=== PATIENT | female | born 1955 | race Two or more races ===

== ENCOUNTER → 2019-10-13 | Emergency (ER) | payer MEDICAID, OTHER ==
[~2019-10-13] VITALS: Ht 157.5 cm; Wt 43.1 kg
[2019-10-14 01:20] VITALS: BP 144/60
== END | disposition home or self-care (01) ==
LOC: ER 22:47
DX: J21.9 Acute bronchiolitis, unspecified (principal); T17.228A Food in pharynx causing other injury, initial encounter; X58.XXXA Exposure to other specified factors, initial encounter; Y93.89 Activity, other specified; Y92.89 Other specified places as the place of occurrence of the external cause; Y99.8 Other external cause status
CPT/HCPCS: 70490; 71250; 82962

== ENCOUNTER 2020-02-22 11:29 | Emergency (ER) | payer MEDICAID ==
[~2020-02-22] VITALS: Ht 157.5 cm; Wt 43.1 kg
[2020-02-22 12:10] LABS: Basophils # (auto) 0.1 10 ^3/uL (0-0.2); Basophils % (auto) 0.8 % (0.0-2.0); Eosinophils # (auto) 0.1 10 ^3/uL (0-0.8); Eosinophils % (auto) 1.5 % (0.0-7.0); Hematocrit 32.2 % (36.0-46.0); Hemoglobin 10.4 g/dL (12.2-16.2); Lymphocytes % (auto) 16.3 % (10.0-50.0); Mean Corpuscular Hgb Conc. 32.3 g/dL (32.0-36.0); Mean Corpuscular Volume 83.6 fL (80.0-100.0); Monocytes # (auto) 0.5 10 ^3/uL (0-1.3); Monocytes % (auto) 7.9 % (0.0-12.0); Neutrophils # (auto) 4.7 10 ^3/uL (1.6-8.6); Neutrophils % (auto) 73.5 % (37.0-80.0); Platelet Count (auto) 191 10^3/uL (140-450); Red Blood Cells 3.85 10^6/uL (4.0-5.20); Red Cell Distribution Width 24.9 % (11.8-14.3); White Blood Cell 6.4 10^3/uL (4.4-10.8)
[2020-02-22 12:31] LABS: Albumin 3.7 g/dL (3.4-5.0); Calcium 9.3 mg/dL (8.5-10.1)
[2020-02-22 12:32] LABS: INR 0.98 (0.9-1.15); Partial Thromboplastin Time 23.1 sec (23.0-31.2)
[2020-02-22 12:34] LABS: BUN/Creatinine Ratio 27.8; Bilirubin, Total 0.3 mg/dL (0.2-1.0); Total Protein 9.5 g/dL (6.4-8.2)
[2020-02-22] MEDS ORDERED: diphenhdrAMINE HCL 50 MG/1 ML VL ONE (13:22)
[2020-02-22] MEDS ORDERED: SODIUM CHLORIDE LOCK 10 ML ONE (13:22)
[2020-02-22] MEDS: MIDAZOLAM HCL 5 MG/ML-1ML VIAL ONE ×3 (13:47→13:54)
[2020-02-22] MEDS: fentaNYL CITRATE 100 MCG/2 ML VL ONE ×3 (13:48→13:54)
[2020-02-22 15:22] VITALS: BP 116/68
== END 2020-02-22 15:18 | disposition home or self-care (01) ==
LOC: ER 11:29
DX: K22.2 Esophageal obstruction (principal); K22.10 Ulcer of esophagus without bleeding; M19.90 Unspecified osteoarthritis, unspecified site; E11.9 Type 2 diabetes mellitus without complications
CPT/HCPCS: 36415; 43249; 80053; 85025; 85610; 85730; 88305; 88312; 88342; 99284; C1726; J1200; J2250; J3010

== ENCOUNTER 2020-12-11 16:03 | Emergency (ER) | payer MEDICAID ==
[~2020-12-11] VITALS: Ht 157.5 cm; Wt 43.1 kg
[2020-12-11 16:45] LABS: Basophils # (auto) 0 10 ^3/uL (0-0.2); Basophils % (auto) 0.7 % (0.0-2.0); Eosinophils # (auto) 0.1 10 ^3/uL (0-0.8); Eosinophils % (auto) 1.6 % (0.0-7.0); Hematocrit 26.9 % (36.0-46.0); Hemoglobin 9.2 g/dL (12.2-16.2); Lymphocytes # (auto) 0.4 10 ^3/uL (0.4-5.4); Lymphocytes % (auto) 7.5 % (10.0-50.0); Mean Corpuscular Hemoglobin 29.7 pg (28.0-32.0); Mean Corpuscular Hgb Conc. 34.3 g/dL (32.0-36.0); Mean Corpuscular Volume 86.7 fL (80.0-100.0); Monocytes # (auto) 0.3 10 ^3/uL (0-1.3); Monocytes % (auto) 7.1 % (0.0-12.0); Neutrophils % (auto) 83.1 % (37.0-80.0); Red Cell Distribution Width 19.2 % (11.8-14.3); White Blood Cell 4.8 10^3/uL (4.4-10.8)
[2020-12-11 16:58] LABS: Albumin 3.3 g/dL (3.4-5.0); Calcium 9.3 mg/dL (8.5-10.1); Potassium 4.2 mmol/L (3.5-5.1)
[2020-12-11 17:02] LABS: BUN/Creatinine Ratio 21.1; Bilirubin, Total 0.3 mg/dL (0.2-1.0); Total Protein 8.2 g/dL (6.4-8.2)
[2020-12-11 19:20] VITALS: BP 113/59
== END 2020-12-11 20:53 | disposition home or self-care (01) ==
LOC: ER 16:03
DX: K12.1 Other forms of stomatitis (principal); M25.774 Osteophyte, right foot; T45.1X5A Adverse effect of antineoplastic and immunosuppressive drugs, initial encounter; E11.9 Type 2 diabetes mellitus without complications; Z79.899 Other long term (current) drug therapy; Y92.89 Other specified places as the place of occurrence of the external cause
CPT/HCPCS: 36415; 80053; 83605; 85025; 85049; 93005

== ENCOUNTER 2020-12-16 22:28 | Emergency (ER) | payer MEDICAID ==
[~2020-12-16] VITALS: Ht 157.5 cm; Wt 40.8 kg
[2020-12-16 22:28] VITALS: BP 135/75
== END 2020-12-17 05:04 | disposition left against medical advice (07) ==
LOC: ER 22:30
DX: M79.671 Pain in right foot (principal); Z53.21 Procedure and treatment not carried out due to patient leaving prior to being seen by health care provider
CPT/HCPCS: 73700

== ENCOUNTER 2024-04-11 23:19 | Emergency (ER) | payer MEDICARE, MEDICAID ==
[~2024-04-11] VITALS: Ht 152.4 cm; Wt 59.0 kg
[2024-04-12 00:37] LABS: Basophils # (auto) 0 10 ^3/uL (0-0.2); Basophils % (auto) 0.7 % (0.0-2.0); Eosinophils # (auto) 0.1 10 ^3/uL (0-0.8); Eosinophils % (auto) 1.4 % (0.0-7.0); Hematocrit 27.8 % (36.0-46.0); Hemoglobin 9.3 g/dL (12.2-16.2); Lymphocytes # (auto) 0.2 10 ^3/uL (0.4-5.4); Lymphocytes % (auto) 5.6 % (10.0-50.0); Mean Corpuscular Hemoglobin 31.1 pg (28.0-32.0); Mean Corpuscular Hgb Conc. 33.4 g/dL (32.0-36.0); Mean Corpuscular Volume 93.3 fL (80.0-100.0); Monocytes # (auto) 0.3 10 ^3/uL (0-1.3); Monocytes % (auto) 6.8 % (0.0-12.0); Neutrophils # (auto) 3.8 10 ^3/uL (1.6-8.6); Neutrophils % (auto) 85.5 % (37.0-80.0); Platelet Count (auto) 152 10^3/uL (140-450); Red Blood Cells 2.97 10^6/uL (4.0-5.20); Red Cell Distribution Width 18.5 % (11.8-14.3); White Blood Cell 4.4 10^3/uL (4.4-10.8)
[2024-04-12 00:52] LABS: Alanine Aminotransferase 63 U/L (7-40); Albumin 4.1 g/dL (3.2-4.8); Alkaline Phosphatase 100 U/L (46-116); Anion Gap 2 (5-15); Aspartate Aminotransferase 44 U/L (13-40); Bilirubin, Total 0.5 mg/dL (0.2-1.0); Blood Urea Nitrogen 20 mg/dL (9-23); Calcium 10.2 mg/dL (8.7-10.4); Carbon Dioxide 26 mmol/L (20-31); Chloride 106 mmol/L (98-107); Glucose 246 mg/dL (74-106); Potassium 4.6 mmol/L (3.5-5.1); Sodium 134 mmol/L (136-145); Total Protein 7.9 g/dL (5.7-8.2)
[2024-04-12] MEDS ORDERED: CLIN1CAP70 PO (02:39)
[2024-04-12 04:00] VITALS: BP 133/67; PULSE 75; RESP 14; O2SAT 98
== END 2024-04-12 05:07 | disposition home or self-care (01) ==
LOC: EDBD 23:19 → ER 23:19
DX: L03.116 Cellulitis of left lower limb (principal); M19.90 Unspecified osteoarthritis, unspecified site; E11.9 Type 2 diabetes mellitus without complications
CPT/HCPCS: 36415; 73660; 80053; 85025

== ENCOUNTER 2024-04-16 15:33 | Inpatient (IN) | payer MEDICARE, MEDICAID ==
[~2024-04-16] VITALS: Ht 157.5 cm; Wt 41.0 kg
[~2024-04-16 15:33] MED LIST: CLIN1CAP70 PO
[2024-04-16 16:38] LABS: Basophils # (auto) 0 10 ^3/uL (0-0.2); Basophils % (auto) 1.1 % (0.0-2.0); Eosinophils # (auto) 0.1 10 ^3/uL (0-0.8); Eosinophils % (auto) 1.8 % (0.0-7.0); Lymphocytes # (auto) 0.3 10 ^3/uL (0.4-5.4); Lymphocytes % (auto) 11.8 % (10.0-50.0); Mean Corpuscular Hemoglobin 30.1 pg (28.0-32.0); Mean Corpuscular Hgb Conc. 32.4 g/dL (32.0-36.0); Mean Corpuscular Volume 93.1 fL (80.0-100.0); Monocytes # (auto) 0.4 10 ^3/uL (0-1.3); Monocytes % (auto) 13.6 % (0.0-12.0); Neutrophils # (auto) 2.1 10 ^3/uL (1.6-8.6); Neutrophils % (auto) 71.7 % (37.0-80.0); Nucleated Red Blood Cells % 0.2 %; Platelet Count (auto) 250 10^3/uL (140-450); Red Blood Cells 3.33 10^6/uL (4.0-5.20); Red Cell Distribution Width 18.2 % (11.8-14.3); White Blood Cell 2.9 10^3/uL (4.4-10.8)
--- NOTE | 2024-04-16 16:48 | ED.PDOC ---
History of Present Illness HPI Comments 68F presents to the ER w/ prior Hx of arthritis and DM which may be associated to the c/c of LE. Pt son reports that the pt was recently admitted to the ER for 1 day, due from the same symptoms. Son states that the pt was given antibiotics for the extremity and got better but when they arrived home, the pt's extremity was getting worsening and was turning red in color. Son states that the pt was not prescribed w/ any antibiotics. SHx of right hip/knee. Social Hx of DM. Denies chill,s fever, N/V/D, SOB, CP or other associated symptom's, modifiers, or recent injuries or sick contact at this time. Chief Complaint: Lower Extremity Time Seen by MD: 16:21 Primary Care Provider: VERMA Reviewed Notes: Nurses Notes, Medications, Allergies Allergies: Coded Allergies: NO KNOWN ALLERGIES (Unverified , 10/13/19) Home Meds Active Scripts Clindamycin Hcl (Clindamycin Hcl) 300 Mg Cap, 1 CAP PO TID for 10 Days, #30 CAP Prov:JAVAD RICHARDS 04/12/24 Information Source: Patient, Relative (Child) Mode of Arrival: Wheelchair Severity: Moderate Timing: Days Duration: Since onset, Days Prehospital treatment: None Past Medical History PAST MEDICAL HISTORY: Arthritis, DM Surgical History (Other): Right hip/knee AX SURVEY WORKER History: No Pertinent AX SURVEY WORKER History Family History Family History: Family hx of DM Social History Smoker: Non-Smoker Alcohol: Denies ETOH Use Drugs: Denies Drug Use Lives In: Home Constitutional: denies: chills, diaphoresis, fatigue, fever, malaise, sweats, weakness, others EENTM: denies: blurred vision, double vision, ear bleeding, ear discharge, ear drainage, ear pain, ear ringing, eye pain, eye redness, hearing loss, mouth pain, mouth swelling, nasal discharge, nose bleeding, nose congestion, nose pain, photophobia, tearing, throat pain, throat swelling, voice changes, others Respiratory: denies: cough, hemoptysis, orthopnea, SOB at rest, shortness of breath, SOB with excertion, stridor, wheezing, others Cardiovascular: denies: chest pain, dizzy spells, diaphoresis, Dyspnea on exertion, edema, irregular heart beat, left arm pain, lightheadedness, palpitations, PND, syncope, others Gastrointestinal: denies: abdomen distended, abdominal pain, blood streaked bowels, constipated, diarrhea, dysphagia, difficulty swallowing, hematemesis, m fortunato, nausea, poor appetite, poor fluid intake, rectal bleeding, rectal pain, vomiting, others Genitourinary: denies: abnormal vagina bleeding, burning, dyspareunia, dysuria, flank pain, frequency, hematuria, incontinence, pain, , vagina discharge, urgency, others Neurological: denies: dizziness, fainting, headache, left sided numbness, left sided weakness, numbness, paresthesia, pre-existing deficit, right sided numbness, right sided weakness, seizure, speech problems, tingling, tremors, weakness, others Musculoskeletal: denies: back pain, gout, joint pain, joint swelling, muscle pain, muscle stiffness, neck pain, others Integumetry: reports: change in color; denies: bruises, change in hair/nails, dryness, laceration, lesions, lumps, rash, wounds, others Allergic/Immunocompromised: denies: Difficulty Healing, Frequent Infections, Hives, Itching, others Hematologic/Lymphatic: denies: anemia, blood clots, easy bleeding, easy bruising, swollen glands, others Endocrine: denies: excessive hunger, excessive sweating, excessive thirst, excessive urination, flushing, intolerance to cold, intolerance to heat, unexplained weight gain, unexplained weight loss, others Psychiatric: denies: anxiety, bipolar disorder, depression, hopeless, panic disorder, schizophrenia, sleepless, suicidal, others All Other Systems: Reviewed and Negative Physical Exam General Appearance: No Apparent Distress HEENT: Normal ENT Inspection, Pharynx Normal, TMs Normal Neck: Full Range of Motion, Non-Tender, Normal, Normal Inspection Respiratory: Chest Non-Tender, Lungs Clear, No Accessory Muscle Use, No Respiratory Distress, Normal Breath Sounds Cardiovascular: No Edema, No JVD, No Murmur, No Gallop, Normal Peripheral Pulses, Regular Rate/Rhythm Breast Exam: Deferred Gastrointestinal: No Organomegaly, Non Tender, No Pulsatile Mass, Normal Bowel Sounds, Soft Genitalia: Deferred Pelvic: Deferred Rectal: Deferred Extremities: No calf tenderness, Normal capillary refill, Normal inspection, Normal range of motion, Non-tender, No pedal edema Musculoskeletal : Apperance: Normal Neurologic: Alert, pig farmer II-XII nml as Tested, No Motor Deficits, Normal Affect, Normal Mood, No Sensory Deficits Cerebellar Function: Normal Reflexes: Normal Skin: Dry, Warm, Other (Redness to the left foot consistent with cellulitis) Lymphatic: No Adenopathy Was a procedure done? Was a procedure done?: No Differential Dx Considerations may include: Abscess, cellulitis, gout X-Ray, Labs, Meds, VS Vital Signs Date Time Temp Pulse Resp B/P (MAP) Pulse Ox O2 Delivery O2 Flow Rate FiO2 04/16/24 17:44 98.7 101 18 114/61 (78) 97 98.7 04/16/24 16:08 98.9 104 16 133/60 (84) 96 Lab Test 04/16/24 16:32 Range/Units White Blood Count 2.9 L 4.4-10.8 10^3/uL Red Blood Count 3.33 L 4.0-5.20 10^6/uL Hemoglobin 10.0 L 12.2-16.2 g/dL Hematocrit 31.0 #L 36.0-46.0 % Mean Corpuscular Volume 93.1 80.0-100.0 fL Mean Corpuscular Hemoglobin 30.1 28.0-32.0 pg Mean Corpuscular Hemoglobin Concent 32.4 32.0-36.0 g/dL Red Cell Distribution Width 18.2 H 11.8-14.3 % Platelet Count 250 140-450 10^3/uL Mean Platelet Volume 6.7 L 6.9-10.8 fL Neutrophils (%) (Auto) 71.7 37.0-80.0 % Lymphocytes (%) (Auto) 11.8 10.0-50.0 % Monocytes (%) (Auto) 13.6 H 0.0-12.0 % Eosinophils (%) (Auto) 1.8 0.0-7.0 % Basophils (%) (Auto) 1.1 0.0-2.0 % Neutrophils # (Auto) 2.1 1.6-8.6 10 ^3/uL Lymphocytes # (Auto) 0.3 L 0.4-5.4 10 ^3/uL Monocytes # (Auto) 0.4 0-1.3 10 ^3/uL Eosinophils # (Auto) 0.1 0-0.8 10 ^3/uL Basophils # (Auto) 0 0-0.2 10 ^3/uL Nucleated Red Blood Cells 0.2 % Prothrombin Time 10.7 9.3-11.8 sec Prothrombin Time INR 1.01 0.9-1.15 Activated Partial Thromboplast Time 24.5 24.5-34.5 SEC Sodium Level 136 136-145 mmol/L Potassium Level 4.9 3.5-5.1 mmol/L Chloride Level 105 98-107 mmol/L Carbon Dioxide Level 24 20-31 mmol/L Anion Gap 7 5-15 Blood Urea Nitrogen 20 9-23 mg/dL Creatinine 0.86 0.550-1.02 mg/dL Glomerular Filtration Rate Calc 74 >90 mL/min BUN/Creatinine Ratio 23.3 H 10.0-20.0 Serum Glucose 134 H 74-106 mg/dL Calcium Level 9.9 8.7-10.4 mg/dL Current Medications Medications (Trade) Dose Ordered Sig/Rikki Route Start Time Stop Time Status Last Admin Sodium Chloride 500 ml @ 500 mls/hr Q1H ONCE IV 04/16/24 16:30 04/16/24 17:29 DC 04/16/24 18:07 CT scan of the left foot shows: Impression: 1. No acute osseous abnormality. 2. Mild degenerative changes. 3. Diffuse osteopenia. The patient was given normal saline as a 500 cc bolus The CBC is within normal limits except for anemia with a hemoglobin of 10 and hematocrit of 31 The chemistry panel is within normal limits. The patient is being started on clindamycin IV piggyback The patient is being admitted at this time. Images Reviewed?: Images reviewed and evaluated by me Time of 1ST Reevaluation: 16:51 Reevaluation 1ST: Unchanged Patient Education/Counseling: Diagnosis, Treatment, Prognosis Family Education/Counseling: Diagnosis, Treatment, Prognosis Departure 1 Departure Time of Disposition: 19:07 Impression: Primary Impression: Cellulitis of left foot Disposition: 09 ADMITTED INPATIENT Admit to: Med Surg Condition: Fair Critical Care Note Critical Care Time?: No Stability Stability form required: Yes Unstable for transfer: ED Physician Assesment (Clinical assesment) Heart Score Heart Score: Heart Score Response (Comments) Value History N/A 0 EKG N/A 0 Age N/A 0 Risk Factors N/A 0 Troponin N/A 0 Total 0 I personally scribed for DOMINIQUE,ALONZO B MD ([email or web address]) on 04/16/24 at 16:48. Electronically submitted by Nelson Wynne ([email or web address]). ALONZO FOX MD Apr 16, 2024 16:48
[2024-04-16 17:05] LABS: Chloride 105 mmol/L (98-107); Potassium 4.9 mmol/L (3.5-5.1); Sodium 136 mmol/L (136-145)
[2024-04-16 17:06] LABS: Anion Gap 7 (5-15); Carbon Dioxide 24 mmol/L (20-31)
[2024-04-16 17:07] LABS: Calcium 9.9 mg/dL (8.7-10.4); INR 1.01 (0.9-1.15); Partial Thromboplastin Time 24.5 SEC (24.5-34.5); Prothrombin Time 10.7 sec (9.3-11.8)
[2024-04-16 17:12] LABS: BUN/Creatinine Ratio 23.3 (10.0-20.0); Blood Urea Nitrogen 20 mg/dL (9-23); Glucose 134 mg/dL (74-106)
--- NOTE | 2024-04-16 17:27 | DVH ---
EXAM: CT CT L FOOT WO CONTRAST INDICATION: pain EXAM DATE: 04/16/2024 04:35 PM COMPARISON: CT R FOOT WO CONTRAST on DOS: 12/16/20 TECHNIQUE: Multiple axial CT images of the left foot were obtained using bone algorithm. Axial and co liu reformatting was done. Bone and soft tissue windows were reviewed. Radiation Dose Information: CT Dose: CTDI volume is 7.75 mGy. Dose-length product is 186.71 mGy*cm Findings: There is no evidence of an acute fracture, dislocation, blastic, or lytic lesions. Mild degenerative changes of the hind foot, mid foot, and first PIP joint. No radiopaque foreign bodies. Diffuse osteopenia. Small plantar calcaneal enthesophyte. No joint effusion or superficial soft tissue abnormalities. Impression: 1. No acute osseous abnormality. 2. Mild degenerative changes. 3. Diffuse osteopenia.
[2024-04-16] MEDS: SODIUM CHLORIDE 0.9% 500 ML IV ONE (18:07)
[2024-04-16] MEDS: MORPHINE SULFATE 4 MG/ML SYR/VIAL IV ONE (18:19)
[2024-04-16] MEDS: ONDANSETRON HCL 4 MG/2 ML VIAL IV ONE (18:19)
[2024-04-16] MEDS ORDERED: ACETAMINOPHEN 325 MG TAB PO PRN (22:15)
[2024-04-16] MEDS ORDERED: HYDROcodone-ACET 5/325MG TAB PO PRN (22:15)
[2024-04-16] MEDS ORDERED: ONDANSETRON HCL 4 MG/2 ML VIAL IV PRN (22:15)
[2024-04-16] MEDS ORDERED: MORPHINE SULFATE INJ 2 MG/ml SYRG IV PRN (22:15)
[2024-04-16] MEDS ORDERED: NITROGLYCERIN 0.4 MG SL TAB SL PRN (22:15)
--- NOTE | 2024-04-16 22:23 | DVHHPRES ---
History of Present Illness Resident Creating Document: CLAUDIO TUCKER RESIDENT History of Present Illness This is a 68-year-old wheel chair bound female with past medical history of rheumatoid arthritis, type 2 diabetes mellitus, osteoporosis presented to the ED with a complaint of swelling and redness of left foot and left 2nd toes for 1 week prior to this admission. According to the son patient was recently admitted to the ER for 1 day due to the same symptoms and was given antibiotic clindamycin on discharge. On arrival home the swelling was getting worse and was turning red in color that prompted this visit . The patient also mobile mentioned she has history of osteoporosis and on alendronate once in a week and history of right hip and knee replacement. The patient denies fever, chills, abdominal pain, nausea, vomiting, diarrhea, chest pain, dizziness, shortness of breath, diaphoresis , any change in bowel and bladder habit or any recent injuries or sick contact. PCP: Adrienne Anderson Rheumatologic: Rheumatoid arthritis Endocrine: Diabetes Past Medical History Type 2 diabetes mellitus, rheumatoid arthritis, osteoporosis Past Surgical History Right hip and knee surgery Family History: None Smoke: No ALCOHOL: none Drugs: None Lives: with Family Review of Systems Constitutional: No: Fever, Chills, Sweats, Weakness, Malaise, Other Eyes: No: Pain, Vision change, Conjunctivae inflammation, Eyelid inflammation, Other, Redness ENT: No: Ear pain, Ear discharge, Nose pain, Nose discharge, Nose congestion, Mouth pain, Mouth swelling, Throat pain, Throat swelling, Other Respiratory: No: Cough, Dry, Shortness of breath, SOB with excertion, Wheezing, Hemoptysis, Pleuritic Pain, Sputum, Wheezing, Other Cardiovascular: No: Chest Pain, Palpitations, Orthopnea, Paroxysmal Noc. Dyspnea, Edema, Lt Headedness, Other Gastrointestinal: No: Nausea, Vomiting, Abdominal Pain, Diarrhea, Constipation, Melena, Hematochezia, Other Genitourinary: No Dysuria, No Frequency, No Incontinence, No Hematuria, No Retention, No Other Musculoskeletal: leg pain, foot pain; No: other, neck pain, shoulder pain, arm pain, back pain, hand pain Skin: No: Rash, Lesions, Jaundice, Bruising, Other Neurological: No: Weakness, Numbness, Incoordination, Change in speech, Confusion, Seizures, Other Allergies: Coded Allergies: NO KNOWN ALLERGIES (Unverified , 10/13/19) Medications Current Medications Medications Dose Ordered Sig/Rikki Route Start Time Stop Time Status Last Admin Dose Admin Sodium Chloride 10 ml Q8HR IV 04/17/24 06:00 Acetaminophen 325 mg Q4HP PRN PO 04/16/24 22:15 Acetaminophen/ Hydrocodone Bitart 1 tab Q4HP PRN PO 04/16/24 22:15 Ondansetron HCl 4 mg Q4HP PRN IV 04/16/24 22:15 Enoxaparin Sodium 30 mg DAILY SC 04/17/24 10:00 UNV Nitroglycerin 0.4 mg Q5MINP PRN SL 04/16/24 22:15 Morphine Sulfate 2 mg Q30M PRN IV 04/16/24 22:15 Ceftriaxone Sodium 50 ml @ 100 mls/hr DAILY@2100 IV 04/16/24 22:30 Exam Vital Signs Vital Signs Date Time Temp Pulse Resp B/P (MAP) Pulse Ox O2 Delivery O2 Flow Rate FiO2 04/16/24 17:44 98.7 101 18 114/61 (78) 97 98.7 General Appearance: Alert, Oriented X3, Cooperative, mild distress HEENT: Atraumatic, PERRLA, EOMI, Mucous membr. moist/pink Respiratory: Clear to auscultation, Normal air movement Cardiovascular: Regular rate, Normal S1, Normal S2, No murmurs Abdominal: Normal bowel sounds, Soft, No tenderness, No hepatospenomegaly, No masses (Swelling and redness of the left foot and left 2nd toes) Extremities: No clubbing, No cyanosis, No edema, Normal pulses Skin: No rashes, No breakdown, No significant lesion Neuro: Normal speech, Strength at 5/5 X4 ext, Normal tone, Sensation intact, Other (Wheelchair-bound) Psych/Mental Status: Mental status NL, Mood NL Labs/Xrays Labs Test 04/16/24 16:32 Range/Units White Blood Count 2.9 L 4.4-10.8 10^3/uL Red Blood Count 3.33 L 4.0-5.20 10^6/uL Hemoglobin 10.0 L 12.2-16.2 g/dL Hematocrit 31.0 #L 36.0-46.0 % Mean Corpuscular Volume 93.1 80.0-100.0 fL Mean Corpuscular Hemoglobin 30.1 28.0-32.0 pg Mean Corpuscular Hemoglobin Concent 32.4 32.0-36.0 g/dL Red Cell Distribution Width 18.2 H 11.8-14.3 % Platelet Count 250 140-450 10^3/uL Mean Platelet Volume 6.7 L 6.9-10.8 fL Neutrophils (%) (Auto) 71.7 37.0-80.0 % Lymphocytes (%) (Auto) 11.8 10.0-50.0 % Monocytes (%) (Auto) 13.6 H 0.0-12.0 % Eosinophils (%) (Auto) 1.8 0.0-7.0 % Basophils (%) (Auto) 1.1 0.0-2.0 % Neutrophils # (Auto) 2.1 1.6-8.6 10 ^3/uL Lymphocytes # (Auto) 0.3 L 0.4-5.4 10 ^3/uL Monocytes # (Auto) 0.4 0-1.3 10 ^3/uL Eosinophils # (Auto) 0.1 0-0.8 10 ^3/uL Basophils # (Auto) 0 0-0.2 10 ^3/uL Nucleated Red Blood Cells 0.2 % Prothrombin Time 10.7 9.3-11.8 sec Prothrombin Time INR 1.01 0.9-1.15 Activated Partial Thromboplast Time 24.5 24.5-34.5 SEC Sodium Level 136 136-145 mmol/L Potassium Level 4.9 3.5-5.1 mmol/L Chloride Level 105 98-107 mmol/L Carbon Dioxide Level 24 20-31 mmol/L Anion Gap 7 5-15 Blood Urea Nitrogen 20 9-23 mg/dL Creatinine 0.86 0.550-1.02 mg/dL Glomerular Filtration Rate Calc 74 >90 mL/min BUN/Creatinine Ratio 23.3 H 10.0-20.0 Serum Glucose 134 H 74-106 mg/dL Calcium Level 9.9 8.7-10.4 mg/dL Assessment/Plan Assessment/Plan Assessment and plan: # Possible cellulitis of the Lt foot - CT of the left foot revealed no acute osseous or soft tissue abnormality, mild degenerative changes and diffuse osteopenia - IV ceftriaxone 1 g daily. - Wound care daily. # Chronic microcytic hypochromic anaemia, rule out GI bleeding - CBC revealed low hemoglobin and hematocrit - Elevated BUN/creatinine ratio - Ordered stool occult blood test - IV Protonix 40 mg daily. # Type 2 diabetes mellitus, HbA1c 7.3% - Mild sliding scale of insulin # History of osteoporosis - Continue home meds # DVT prophylaxis - Ordered Doppler scan of the lower limb - Due to the possibility of the GI bleeding Goal of care discussed with the patient for more than 23 minutes full code Plan of treatment discussed with Dr. De Paz Plan discussed with: Patient, Other My Orders Orders - CLAUDIO TUCKER RESIDENT Procedure Category Date Status Time Admit ADMIT 04/16/24 Transmitted 22:06 Allergies PATRICK 04/16/24 In Process 22:06 Code Status CODE 04/16/24 Transmitted 22:06 Sodium Chloride Lock PHA 04/17/24 In Process (Saline Lock Ns) 06:00 Oxygen Per Hour RT 04/16/24 Transmitted 22:06 Acetaminophen Tablet PHA 04/16/24 In Process (Tylenol Tablet) 22:15 Hydrocodone-Acet PHA 04/16/24 In Process 5/325mg Tab ([place] 22:15 Ondansetron Hcl PHA 04/16/24 In Process (Zofran) 22:15 Fall Risk Precautions PATRICK 04/16/[address] 22:06 Complete Blood Count LAB 04/17/24 Verified 04:00 Comprehensive LAB 04/17/24 Verified Metabolic Panel 04:00 Enoxaparin Sodium PHA 04/17/24 Pending (Lovenox) 10:00 Nitroglycerin PHA 04/16/24 In Process Sublingual (Ntrostat 22:15 Morphine Sulfate PHA 04/16/24 In Process Injection 22:15 Oxygen By Nasal RT 04/16/24 Transmitted Cannula 22:06 Stat Ekg For Chest PATRICK 04/16/24 In Process Pain 22:06 Notify Of Changes PATRICK 04/16/24 In Process From Base 22:06 Systems Librarian For PATRICK 04/16/24 In Process 24 Hours 22:06 Emergency Dysrhythmia PATRICK 04/16/24 In Process Protocol 22:06 Rhythm Strips Once PATRICK 04/16/24 In Process Every Shift 22:06 Hemoglobin A1c LAB 04/16/24 In Process 22:10 Urinalysis LAB 04/16/24 Logged 22:10 Thyroid Stimulating LAB 04/16/24 In Process Hormone 22:10 Vitamin B12 LAB 04/16/24 In Process 22:10 Vitamin D, 25-Hydroxy LAB 04/16/24 In Process 22:10 Consistent DIET 04/17/24 Transmitted Carb(Ccho)Diabetes Breakfast Ceftriaxone 1gm/50ml PHA 04/16/24 In Process D5w (Rocephin) 22:30 Date of Service: Apr 16, 2024 Billing Provider: BRITTA DE PAZ MD Common Visit Codes: 37220-BDYJQVR INP/OBS CARE (HIGH) Secondary Visit Codes: 65283-[id number] CARE PLAN 30 MINUTES CLAUDIO TUCKER RESIDENT Apr 16, 2024 22:23 BRITTA DE PAZ MD Apr 17, 2024 08:29
[2024-04-16 23:56] VITALS: BP 118/58; PULSE 79; RESP 16; TEMP 97.6; O2SAT 98
[2024-04-17] VITALS (7 sets, daily range): BP systolic 109–128; BP diastolic 58–66; PULSE 69–87; RESP 15–18; TEMP 97.6–98.1; O2SAT 96–98
[2024-04-17] MEDS ORDERED: DEXTROSE (50%) 50ML SYRG IV PRN (02:30)
[2024-04-17] MEDS: PANTOPRAZOLE 40 MG/10 ML VIAL INJ IV ONE (04:55)
[2024-04-17] MEDS: cefTRIAXone 1GM/50ML D5W 50 ML IV SCH (05:31)
[2024-04-17] MEDS: ACCU-CHEK COMFORT CURVE STRIP VI SCH (06:24)
[2024-04-17] MEDS: SODIUM CHLOR 0.9% PF (SALINE LOCK) 10ML VIAL/SYR IV SCH (06:24)
[2024-04-17] MEDS: InsuLIN REG 1unit/0.01ml Soln (100units/ml) SC SCH (06:39)
[2024-04-17 07:20] LABS: Basophils # (auto) 0 10 ^3/uL (0-0.2); Basophils % (auto) 1.5 % (0.0-2.0); Eosinophils # (auto) 0.1 10 ^3/uL (0-0.8); Eosinophils % (auto) 3.4 % (0.0-7.0); Hematocrit 26.1 % (36.0-46.0); Hemoglobin 8.8 g/dL (12.2-16.2); Lymphocytes # (auto) 0.3 10 ^3/uL (0.4-5.4); Lymphocytes % (auto) 8.6 % (10.0-50.0); Mean Corpuscular Hemoglobin 31.7 pg (28.0-32.0); Mean Corpuscular Hgb Conc. 33.7 g/dL (32.0-36.0); Mean Corpuscular Volume 94.1 fL (80.0-100.0); Monocytes # (auto) 0.5 10 ^3/uL (0-1.3); Monocytes % (auto) 15.4 % (0.0-12.0); Neutrophils # (auto) 2.2 10 ^3/uL (1.6-8.6); Neutrophils % (auto) 71.1 % (37.0-80.0); Platelet Count (auto) 191 10^3/uL (140-450); Red Blood Cells 2.77 10^6/uL (4.0-5.20); White Blood Cell 3.1 10^3/uL (4.4-10.8)
[2024-04-17 07:30] LABS: Alanine Aminotransferase 64 U/L (7-40); Albumin 3.8 g/dL (3.2-4.8); Alkaline Phosphatase 76 U/L (46-116); Anion Gap 9 (5-15); Aspartate Aminotransferase 59 U/L (13-40); BUN/Creatinine Ratio 23.5 (10.0-20.0); Blood Urea Nitrogen 19 mg/dL (9-23); Calcium 9.2 mg/dL (8.7-10.4); Carbon Dioxide 20 mmol/L (20-31); Chloride 109 mmol/L (98-107); Glucose 203 mg/dL (74-106); Potassium 3.8 mmol/L (3.5-5.1); Sodium 138 mmol/L (136-145)
[2024-04-17 07:31] LABS: Bilirubin, Total 0.3 mg/dL (0.2-1.0); Total Protein 7.5 g/dL (5.7-8.2)
[2024-04-17] MEDS: PANTOPRAZOLE 40 MG/10 ML VIAL INJ IV SCH (09:26)
[2024-04-17] MEDS ORDERED: LACTATED RINGER'S 1,000 ML IV SCH (09:45)
--- NOTE | 2024-04-17 09:50 | DVH ---
Bilateral lower extremity venous duplex Clinical History: edema Comparison: None Technique: Duplex Doppler evaluation of the deep venous systems of both lower extremities from the common femora l veins to the popliteal veins including color Doppler and spectral/pulsed waveform analysis was perf ormed. Findings: RIGHT SIDE: The common femoral vein demonstrates appropriate compressibility and waveform variability. There is compressibility/patency of the great saphenous vein at the proximal thigh. The femoral vein demonstrates appropriate compressibility and waveform variability. The deep femoral vein demonstrates appropriate compressibility and waveform variability. The popliteal vein demonstrates appropriate compressibility and waveform variability. There is normal compressibility at the tibioperoneal trunk. LEFT SIDE: The common femoral vein demonstrates appropriate compressibility and waveform variability. There is compressibility/patency of the great saphenous vein at the proximal thigh. The femoral vein demonstrates appropriate compressibility and waveform variability. The deep femoral vein demonstrates appropriate compressibility and waveform variability. The popliteal vein demonstrates appropriate compressibility and waveform variability. There is normal compressibility at the tibioperoneal trunk. Impression: No right or left femoropopliteal venous thrombosis.
[2024-04-17] MEDS ORDERED: ENOXAPARIN SOD 30 MG/0.3 ML SYRINGE SC SCH (10:00)
[2024-04-17] MEDS ORDERED: VANCOMYCIN PER PHARMACY 0 MG IV SCH (10:00)
[2024-04-17 10:42] LABS: % Iron Saturation 15.2 % (15-50)
[2024-04-17 11:11] LABS: Erythrocyte Sedimentation Rate 98 mm/hr (0-20)
[2024-04-17] MEDS: VANCOMYCIN 750mg/150ml 150 ML IV ONE (12:19)
[2024-04-17] MEDS: INSULIN LANTUS (GLARGINE) 1 /0.01ml (100units/ml) SC SCH (12:29)
--- NOTE | 2024-04-17 12:46 | DVHINCON2 ---
Date Seen: Apr 17, 2024 Reason for Consultation Left foot wound History of Present Illness This is a 68-year-old wheel chair bound female with past medical history of rheumatoid arthritis, type 2 diabetes mellitus, osteoporosis presented to the ED with a complaint of swelling and redness of left foot and left 2nd toes for 1 week prior to this admission. According to the son patient was recently admitted to the ER for 1 day due to the same symptoms and was given antibiotic clindamycin on discharge. On arrival home the swelling was getting worse and was turning red in color that prompted this visit . The patient also mobile mentioned she has history of osteoporosis and on alendronate once in a week and history of right hip and knee replacement. The patient denies fever, chills, abdominal pain, nausea, vomiting, diarrhea, chest pain, dizziness, shortness of breath, diaphoresis , any change in bowel and bladder habit or any recent injuries or sick contact. Past Medical History See H&P Past Surgical History See H&P Family History: Diabetes mellitus G8 FATHER, Onset:30's - 40 Allergies: Coded Allergies: NO KNOWN ALLERGIES (Unverified , 10/13/19) Home Meds Active Scripts Clindamycin Hcl (Clindamycin Hcl) 300 Mg Cap, 1 CAP PO TID for 10 Days, #30 CAP Prov:JAVAD RICHARDS 04/12/24 Current Medications Current Medications Medications (Trade) Dose Ordered Sig/Rikki Route PRN Reason Start Time Stop Time Status Last Admin Sodium Chloride (Saline Lock Ns) 10 ml Q8HR IV 04/17/24 06:00 04/17/24 06:24 Acetaminophen (Tylenol Tablet) 325 mg Q4HP PRN PO MILD PAIN (1-3 PAIN SCALE) 04/16/24 22:15 Acetaminophen/ Hydrocodone Bitart ([place] 5/325MG Tab) 1 tab Q4HP PRN PO MODERATE PAIN (4-6 PAIN SCALE) 04/16/24 22:15 Ondansetron HCl (Zofran) 4 mg Q4HP PRN IV NAUSEA / VOMITING 04/16/24 22:15 Enoxaparin Sodium (Lovenox) 30 mg DAILY SC 04/17/24 10:00 04/17/24 02:20 DC Nitroglycerin (Ntrostat Sublingual) 0.4 mg Q5MINP PRN SL FOR CHEST PAIN 04/16/24 22:15 Morphine Sulfate 2 mg Q30M PRN IV FOR CHEST PAIN 04/16/24 22:15 Ceftriaxone Sodium 50 ml @ 100 mls/hr DAILY@2100 IV 04/16/24 22:30 04/17/24 09:49 DC 04/17/24 05:31 Pantoprazole Sodium (Protonix) 40 mg DAILY IV 04/17/24 10:00 04/17/24 09:26 Diagnostic Test (Pha) (Accu-Chek Comfort Curve T) 1 strip ACHS 04/17/24 07:00 04/17/24 11:30 Insulin Human Regular (InsuLIN R) ACHS SC 04/17/24 07:00 04/17/24 06:39 Dextrose 50 ml UD PRN IV Blood Sugar LESS THAN 60 04/17/24 02:30 Insulin Glargine (Lantus) 10 units DAILY@1000 SC 04/17/24 10:00 04/17/24 12:29 Lactated Ringer's 1,000 ml @ 125 mls/hr Q8H IV 04/17/24 09:45 Vancomycin HCl 0 ml @ 0 mls/hr UD IV 04/17/24 10:00 Cefepime HCl 50 ml @ 12.5 mls/hr Q8HR IV 04/17/24 14:00 Vital Signs Vital Signs Date Time Temp Pulse Resp B/P (MAP) Pulse Ox O2 Delivery O2 Flow Rate FiO2 04/17/24 09:00 97.8 78 16 115/66 (82) 98 97.8 04/17/24 08:00 Room Air* 0 21 Physical Exam DERMATOLOGIC EXAM: - Skin is dry and cool to the touch dry bilaterally. - Nails 1-5 of the bilateral foot are thickened, discolored, dystrophic, and tender to palpate with subungual debris - Hair loss noted to bilateral feet Wound #1: Location: Dorsal left 2nd toe Measurements: Length 1 cm x width 1 cm x depth 0.5 cm. Wound margins: Hyperkeratotic. Wound base: Full thickness. General Appearance: Eschar. Probes to Bone: No Purulent drainage: No Serous drainage: No Erythema: To the digit VASCULAR EXAM: - DP and PT pulses are palpable bilaterally. - HUMAN RESOURCE STATISTICIAN is brisk to all digits. - Feet are cool to touch compared to lower legs bilaterally. NEUROLOGIC EXAM: - Normal light touch sensation to the superficial peroneal, deep peroneal, sural, saphenous, and tibial nerve branches. - Protective sensation is diminished as tested with a 5.07 10g [place] bilaterally. MUSCULOSKELETAL EXAM: - No gross deformities - Muscle strength is 5/5 and active motion is pain-free and symmetrical bilaterally - No pain or crepitation with passive range of motion bilaterally to all major pedal joints Labs/Diagnostic Data Labs Test 04/17/24 11:57 04/17/24 06:09 04/16/24 16:32 Range/Units POC Glucose 130 H 70-106 mg/dl White Blood Count 3.1 L 4.4-10.8 10^3/uL Red Blood Count 2.77 L 4.0-5.20 10^6/uL Hemoglobin 8.8 L 12.2-16.2 g/dL Hematocrit 26.1 #L 36.0-46.0 % Mean Corpuscular Volume 94.1 80.0-100.0 fL Mean Corpuscular Hemoglobin 31.7 28.0-32.0 pg Mean Corpuscular Hemoglobin Concent 33.7 32.0-36.0 g/dL Red Cell Distribution Width 18.0 H 11.8-14.3 % Platelet Count 191 140-450 10^3/uL Mean Platelet Volume 6.9 6.9-10.8 fL Neutrophils (%) (Auto) 71.1 37.0-80.0 % Lymphocytes (%) (Auto) 8.6 L 10.0-50.0 % Monocytes (%) (Auto) 15.4 H 0.0-12.0 % Eosinophils (%) (Auto) 3.4 0.0-7.0 % Basophils (%) (Auto) 1.5 0.0-2.0 % Neutrophils # (Auto) 2.2 1.6-8.6 10 ^3/uL Lymphocytes # (Auto) 0.3 L 0.4-5.4 10 ^3/uL Monocytes # (Auto) 0.5 0-1.3 10 ^3/uL Eosinophils # (Auto) 0.1 0-0.8 10 ^3/uL Basophils # (Auto) 0 0-0.2 10 ^3/uL Nucleated Red Blood Cells 0.0 % Erythrocyte Sedimentation Rate 98 H 0-20 mm/hr Sodium Level 138 136-145 mmol/L Potassium Level 3.8 3.5-5.1 mmol/L Chloride Level 109 H 98-107 mmol/L Carbon Dioxide Level 20 20-31 mmol/L Anion Gap 9 5-15 Blood Urea Nitrogen 19 9-23 mg/dL Creatinine 0.81 0.550-1.02 mg/dL Glomerular Filtration Rate Calc 80 >90 mL/min BUN/Creatinine Ratio 23.5 H 10.0-20.0 Serum Glucose 203 H 74-106 mg/dL Calcium Level 9.2 8.7-10.4 mg/dL Iron Level 37 L 50-170 ug/dL Total Iron Binding Capacity 243 L 250-425 ug/dL Percent Iron Saturation 15.2 15-50 % Total Bilirubin 0.3 0.2-1.0 mg/dL Aspartate Amino Transferase (AST) 59 H 13-40 U/L Alanine Aminotransferase (ALT) 64 H 7-40 U/L Alkaline Phosphatase 76 46-116 U/L C-Reactive Protein High Sensitivity 2.06 H <1.0 mg/dL Total Protein 7.5 5.7-8.2 g/dL Albumin 3.8 3.2-4.8 g/dL Prothrombin Time 10.7 9.3-11.8 sec Prothrombin Time INR 1.01 0.9-1.15 Activated Partial Thromboplast Time 24.5 24.5-34.5 SEC Hemoglobin A1c 7.3 H <5.7 % A1C Vitamin B12 Level 1609 H 211-911 pg/mL Vitamin D 25-Hydroxy 34.6 30.0-100 ng/mL Thyroid Stimulating Hormone (TSH) 2.10 0.55-4.78 uIU/mL Problems(with codes): (1) Bronchiolitis (2) Stomatitis (3) Methotrexate adverse reaction (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 - reviewed CT of the left foot - discussed with the patient that his likely cellulitis which needs to be treated with antibiotics - discussed that chances of bone infection are low with an only being a week old - recommend that we continue antibiotics as an outpatient - no surgical intervention required at this time - if erythema does spread would consider MRI but would hold off at this point - wound care we will see and evaluate All questions were answered and concerns addressed to the patient's satisfaction. The patient was given the phone number to the clinic and was told how to make contact with the clinic should any concerns or questions arise. Patient understands that if any questions or concerns arise prior to the next appointment, we should be contacted immediately. FOLLOW-UP: Patient will follow up with me in 1 week for continued wound care Plan discussed with: Patient Date of Service: Apr 17, 2024 Billing Provider: BRIAN KIM DPM Common Visit Codes: [id number] INP/OBS CARE (MOD) BRIAN KIM DPM Apr 17, 2024 12:46
[2024-04-17] MEDS: CEFEPIME 1GM/ 50ML 50 ML IV SCH (14:14)
--- NOTE | 2024-04-17 15:42 | DVHPNRES ---
Progress Note Date Seen: Apr 17, 2024 Resident Creating Document: FALLON OWEN RESIDENT Medical Necessity Reason Pt with a Central, PICC or Fol: No Subjective Review of Systems Overall patient is doing well, not in acute distress. Open left leg cellulites noted. Patient reports: No new complaints Changes from previous H/P or p: No Changes Review of Systems: HEENT:Normal, CVS:Normal, RESPIRATORY:Normal, GI:Normal, :Normal, MSK:Abnormal (Left foot redness, swelling, warmth and tenderness noted), NEURO:Normal (No neurological change, focal neurological deficit noted.) Objective vital signs Vital Sign Date Time Temp Pulse Resp B/P (MAP) Pulse Ox O2 Delivery O2 Flow Rate FiO2 04/17/24 09:00 97.8 78 16 115/66 (82) 98 97.8 04/17/24 08:00 Room Air* 0 21 Total Intake and Output 04/16/24 04/16/24 04/17/24 15:00 23:00 07:00 Intake Total 150 ml Balance 150 ml medications Current Medications Medications Dose Ordered Sig/Rikki Route Start Time Stop Time Status Last Admin Dose Admin Sodium Chloride 10 ml Q8HR IV 04/17/24 06:00 04/17/24 14:14 10 ML Acetaminophen 325 mg Q4HP PRN PO 04/16/24 22:15 Acetaminophen/ Hydrocodone Bitart 1 tab Q4HP PRN PO 04/16/24 22:15 Ondansetron HCl 4 mg Q4HP PRN IV 04/16/24 22:15 Nitroglycerin 0.4 mg Q5MINP PRN SL 04/16/24 22:15 Morphine Sulfate 2 mg Q30M PRN IV 04/16/24 22:15 Pantoprazole Sodium 40 mg DAILY IV 04/17/24 10:00 04/17/24 09:26 40 MG Diagnostic Test (Pha) 1 strip ACHS 04/17/24 07:00 04/17/24 11:30 1 STRIP Insulin Human Regular ACHS SC 04/17/24 07:00 04/17/24 06:39 4 UNITS Dextrose 50 ml UD PRN IV 04/17/24 02:30 Insulin Glargine 10 units DAILY@1000 SC 04/17/24 10:00 04/17/24 12:29 10 UNITS Lactated Ringer's 1,000 ml @ 125 mls/hr Q8H IV 04/17/24 09:45 Vancomycin HCl 0 ml @ 0 mls/hr UD IV 04/17/24 10:00 Cefepime HCl 50 ml @ 12.5 mls/hr Q8HR IV 04/17/24 14:00 04/17/24 14:14 12.5 MLS/HR Examination: GENERAL:Normal, HEENT:Normal, NECK:Normal, LUNGS:Normal, CVS:Normal, ABDOMEN:Normal, MSK:Abnormal (Bilateral lower limb lateral deviation due to underlying rheumatoid arthritis noted. Noted deformity at baseline. Localized left foot cellulitis noted. No crepitation fluctuation or discharge noted. ), SKIN:Normal, NEURO:Normal, :Normal laboratory and microbiology Laboratory Tests 04/17/24 06:09 Test 04/17/24 06:09 Range/Units Serum Glucose 203 H 74-106 mg/dL Labs and/or images reviewed: Labs reviewed by me, Image(s) reviewed by me Problem List/Assessment/Plan Problem List/Assessment/Plan Hospital Course: 68-year-old wheelchair-bound female with past medical history significant for rheumatoid arthritis, previous right hip and knee surgery, Bilateral lower toe lateral deviation due to chronic deformity, type 2 diabetes mellitus, osteoporosis, chronically on methotrexate, complaint of swelling and redness of the left foot and 2nd toe for past 1 week prior to admission. Patient denies fever, chills, or any other systemic disease. # cellulitis of the left foot: localized redness, tenderness, negative probe test, status post IV ceftriaxone 1 g daily, CT unremarkable except degenerative changes and osteopenia. for broad coverage IV vancomycin and cefepime to cover common g positives along with possibility of mixed infection. elevated ESR CRP. Check arterial Doppler for Intact blood supply. Podiatry input appreciated. # Chronic microcytic hypochromic anemia: Reviewed iron panel likely anemia of chronic disease # GI bleed to rule out: low possibility, with stool occult blood, IV Protonix daily to continue. # Type 2 diabetes mellitus HbA1c 7.3 controlled: continue sliding scale insulin with CC diet,Target blood glucose in-hospital 140/180. # History of osteoporosis: at alendronate Continue home medications # DVT prophylaxis: bilateral lower leg Doppler negative for DVT # Previous right hip and knee orthopedic surgery # known osteoarthritis # PUD prophylaxis: Continue PPI, IV change to oral. Diet: CC diet PCP: Adrienne Anderson MD Barriers to discharge: Further workup pending. If patient remains hemodynamically stable we will consider discharging home with oral antibiotics, wound care and outpatient follow up with Podiatry. Case discussed with Dr. Monroy. Code status: Full code. Complex patient care discussion needed total 37 minutes. Plan discussed with: Patient, Other (RN, primary team. ) My Orders My Orders Orders - FALLON OWEN Procedure Category Date Status Time Drug Screen LAB 04/17/24 Logged 09:37 Insulin Lantus PHA 04/17/24 In Process (Glargine) (Lantus) 10:00 Lactated Ringer's PHA 04/17/24 In Process 09:45 Blood Culture ASIA 04/17/24 In Process 09:41 Vancomycin Per PHA 04/17/24 In Process Pharmacy 10:00 Cefepime 1gm/ 50ml PHA 04/17/24 In Process (Maxipime 1gm/50ml) 14:00 Podiatry Consult CONS 04/17/24 Transmitted 10:07 Vancomycin,Random LAB 04/18/24 Verified 04:00 Complete Blood Count LAB 04/18/24 Verified 04:00 Creatinine LAB 04/18/24 Verified 04:00 Wound Culture W/ Gs ASIA 04/17/24 Logged 15:23 Lt Low Ext Art Duplex US 04/17/24 Logged Date of Service: Apr 17, 2024 Billing Provider: BRITTA MONROY MD Common Visit Codes: [id number] INP/OBS CARE(HIGH) Secondary Visit Codes: [id number] CARE PLAN 30 MINUTES FALLON OWEN Apr 17, 2024 15:42 BRITTA MONROY MD Apr 17, 2024 16:53
[2024-04-17 16:16] LABS: Urine Bacteria FEW /hpf (None Seen); Urine Blood TRACE /uL (Negative); Urine Clarity Clear (Clear); Urine Color Light-Yellow (Yellow); Urine Protein, UAD TRACE (Negative); Urine Specific Gravity 1.012 (1.001-1.035); Urine Urobilinogen Normal (Negative); Urine WBC 65 /hpf (0 - 5); Urine pH 5.5 (5.0-9.0)
[2024-04-17 16:36] LABS: Amphetamine Screen, Urine Neg (NEGATIVE); Barbiturate Scree,Urine Neg (NEGATIVE); Benzodiazephine Screen, Urine Neg (NEGATIVE); Cocaine Screen, Urine Neg (NEGATIVE)
[2024-04-17 16:37] LABS: Cannabinoid Screen, Urine Neg (NEGATIVE); Opiate Scree,Urine Neg (NEGATIVE); Phencyclidine Screen, Urine Neg (NEGATIVE)
--- NOTE | 2024-04-17 16:44 | DVH ---
Left Lower Extremity Arterial Duplex Clinical History: CHECK THE [facility] BLOOD SUPPLY Comparison: None Technique: Duplex Doppler evaluation including color Doppler and spectral/pulsed waveform analysis of the lower extremity arteries was performed. Findings: LEFT Peak systolic velocities are as follows: HUSBANDRY TECHNICIAN 177 cm/s Deep femoral 85 cm/s SFA proximal 85 cm/s SFA mid-portion 105 cm/s SFA distal 67 cm/s Popliteal 49 cm/s Posterior tibial 31 cm/s Anterior tibial 49 cm/s Dorsalis pedis 7.4 cm/s The waveforms are triphasic and biphasic waveform throughout the proximal left lower extremity. Monop hasic waveform in the left posterior tibial and dorsalis pedis arteries.. IMPRESSION: 1. No hemodynamically significant stenosis based on peak systolic velocity criteria. 2. Calcified plaque throughout the left lower extremity. 3. Monophasic waveform in the left posterior tibial anterior tibial and dorsalis pedis arteries. REFERENCE VALUES, [facility]) vascular Imaging Lab Criteria: Peak systolic velocity ranges (in cm/sec) are as follows: <150 cm/s - <20 % stenosis 150-200 cm/s - 20-49% stenosis 200-300 cm/s - 50-75% stenosis >300 cm/s -> 75% stenosis
[2024-04-18 01:00] VITALS: BP 105/59; PULSE 73; RESP 18; TEMP 98.3; O2SAT 96
[2024-04-18 05:00] VITALS: BP 104/57; PULSE 76; RESP 18; TEMP 98.1; O2SAT 96
[2024-04-18 05:11] LABS: Basophils # (auto) 0 10 ^3/uL (0-0.2); Basophils % (auto) 1.1 % (0.0-2.0); Eosinophils # (auto) 0.1 10 ^3/uL (0-0.8); Hematocrit 26.6 % (36.0-46.0); Lymphocytes # (auto) 0.4 10 ^3/uL (0.4-5.4); Lymphocytes % (auto) 9.8 % (10.0-50.0); Mean Corpuscular Hemoglobin 31.4 pg (28.0-32.0); Mean Corpuscular Hgb Conc. 33.7 g/dL (32.0-36.0); Mean Corpuscular Volume 93.3 fL (80.0-100.0); Monocytes # (auto) 0.6 10 ^3/uL (0-1.3); Monocytes % (auto) 15.4 % (0.0-12.0); Neutrophils % (auto) 70.7 % (37.0-80.0); Nucleated Red Blood Cells % 0.1 %; Platelet Count (auto) 189 10^3/uL (140-450); Red Blood Cells 2.85 10^6/uL (4.0-5.20); Red Cell Distribution Width 17.9 % (11.8-14.3); White Blood Cell 4.2 10^3/uL (4.4-10.8)
[2024-04-18] MEDS: PANTOPRAZOLE 40 MG TAB PO SCH (05:38)
--- NOTE | 2024-04-18 07:10 | DVHDSRES ---
Discharge Summary Date of Admission Resident Creating Document: FALLON OWEN RESIDENT Apr 16, 2024 at 22:06 Date of Discharge: Apr 18, 2024 Admitting Diagnosis cellulites of the left foot Labs/Diagnostic Data: Laboratory Results Test 04/18/24 04:43 04/17/24 22:09 04/17/24 16:05 04/17/24 06:09 White Blood Count 4.2 10^3/uL (4.4-10.8) Red Blood Count 2.85 10^6/uL (4.0-5.20) Hemoglobin 9.0 g/dL (12.2-16.2) Hematocrit 26.6 % (36.0-46.0) Mean Corpuscular Volume 93.3 fL (80.0-100.0) Mean Corpuscular Hemoglobin 31.4 pg (28.0-32.0) Mean Corpuscular Hemoglobin Concent 33.7 g/dL (32.0-36.0) Red Cell Distribution Width 17.9 % (11.8-14.3) Platelet Count 189 10^3/uL (140-450) Mean Platelet Volume 7.0 fL (6.9-10.8) Neutrophils (%) (Auto) 70.7 % (37.0-80.0) Lymphocytes (%) (Auto) 9.8 % (10.0-50.0) Monocytes (%) (Auto) 15.4 % (0.0-12.0) Eosinophils (%) (Auto) 3.0 % (0.0-7.0) Basophils (%) (Auto) 1.1 % (0.0-2.0) Neutrophils # (Auto) 3.0 10 ^3/uL (1.6-8.6) Lymphocytes # (Auto) 0.4 10 ^3/uL (0.4-5.4) Monocytes # (Auto) 0.6 10 ^3/uL (0-1.3) Eosinophils # (Auto) 0.1 10 ^3/uL (0-0.8) Basophils # (Auto) 0 10 ^3/uL (0-0.2) Nucleated Red Blood Cells 0.1 % Creatinine 0.85 mg/dL (0.550-1.02) Glomerular Filtration Rate Calc 75 mL/min (>90) Random Vancomycin Level 10.1 ug/mL (5-10) POC Glucose 134 mg/dl (70-106) Urine Color Light-yellow (Yellow) Urine Clarity Clear (Clear) Urine pH 5.5 (5.0-9.0) Urine Specific [place] 1.012 (1.001-1.035) Urine Protein Trace (Negative) Urine Ketones Negative (Negative) Urine Blood Trace /uL (Negative) Urine Nitrite Negative (Negative) Urine Bilirubin Negative (Negative) Urine Urobilinogen Normal mg/dL (Negative) Urine Leukocyte Esterase 3+ /uL (Negative) Urine RBC 2 /hpf (0 - 4) Urine WBC 65 /hpf (0 - 5) Urine Squamous Epithelial Cells Few /hpf (<5) Urine Bacteria Few /hpf (None Seen) Urine Glucose Normal mg/dL (Normal) Urine Opiates Screen Neg (NEGATIVE) Urine Fentanyl Screen Neg (NEGATIVE) Urine Barbiturates Screen Neg (NEGATIVE) Urine Phencyclidine Screen Neg (NEGATIVE) Urine Amphetamines Screen Neg (NEGATIVE) Urine Benzodiazepines Screen Neg (NEGATIVE) Urine Cocaine Screen Neg (NEGATIVE) Urine Cannabinoids Screen Neg (NEGATIVE) Erythrocyte Sedimentation Rate 98 mm/hr (0-20) Sodium Level 138 mmol/L (136-145) Potassium Level 3.8 mmol/L (3.5-5.1) Chloride Level 109 mmol/L (98-107) Carbon Dioxide Level 20 mmol/L (20-31) Anion Gap 9 (5-15) Blood Urea Nitrogen 19 mg/dL (9-23) BUN/Creatinine Ratio 23.5 (10.0-20.0) Serum Glucose 203 mg/dL (74-106) Calcium Level 9.2 mg/dL (8.7-10.4) Iron Level 37 ug/dL (50-170) Total Iron Binding Capacity 243 ug/dL (250-425) Percent Iron Saturation 15.2 % (15-50) Total Bilirubin 0.3 mg/dL (0.2-1.0) Aspartate Amino Transferase (AST) 59 U/L (13-40) Alanine Aminotransferase (ALT) 64 U/L (7-40) Alkaline Phosphatase 76 U/L (46-116) C-Reactive Protein High Sensitivity 2.06 mg/dL (<1.0) Total Protein 7.5 g/dL (5.7-8.2) Albumin 3.8 g/dL (3.2-4.8) Test 04/16/24 16:32 Prothrombin Time 10.7 sec (9.3-11.8) Prothrombin Time INR 1.01 (0.9-1.15) Activated Partial Thromboplast Time 24.5 SEC (24.5-34.5) Hemoglobin A1c 7.3 % A1C (<5.7) Vitamin B12 Level 1609 pg/mL (211-911) Vitamin D 25-Hydroxy 34.6 ng/mL (30.0-100) Thyroid Stimulating Hormone (TSH) 2.10 uIU/mL (0.55-4.78) Other Laboratory Tests 04/18/24 04:43 04/17/24 06:09 Brief Hx & Hospital Course: Hospital Course: Ms. 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 Patient denies fever, chills, or any other systemic disease. PCP: Adrienne Anderson MD. Lives at home with family and walks with walker. Medical conditions treated in hospital: # cellulites of the left foot: localized redness, tenderness, negative probe test, status post IV ceftriaxone 1 g daily, CT unremarkable except degenerative changes and osteopenia. S/p coverage IV vancomycin and cefepime to cover common g positives along with possibility of mixed infection. Check arterial Doppler for Intact blood supply. Podiatry input appreciated. # Chronic microcytic hypochromic anemia, anemia of chronic disease. # GI bleed to rule out, continue home pantoprazole 40 mg daily for PUD prophylaxis # Type 2 diabetes mellitus HbA1c 7.3 controlled, carb controlled diet continue. # History of osteoporosis on bisphosphonates. # Previous right hip and knee orthopedic surgery # known osteoarthritis # Unlikely clinical picture of osteomyelitis. Discussed with Dr. De Paz. Discharge discussion needed 41 minutes of discussion. Patient agreed on the plan. Discharge clinic follow up. Patient will follow PCP in 1-2 weeks. Podiatry follow up outpatient huynh. Oral augmentin to continue for next 12 days. Consults/Reason for consult Podiatry Operations or Procedures [facility] [address] [facility] [address] Ph: [phone] DIAGNOSTIC IMAGING Diagnostic Imaging Report : [id number] Signed PATIENT: KATIA TERRAZAS ACCT: [id number] UNIT: [id number] : 1955 LOC: [facility] ROOM / BED: 0290 / B AGE / SEX: 68 / F ADM STATUS: ADM IN SERVICE 2 ORDERING PHYSICIAN: CLAUDIO TUCKER RESIDENT PROCEDURE(s): BLDVT - BiLat Lower DVT REASON: To rule oput DVT ORDER NUMBER(s): [id number], ACCESSION NUMBER(s): [id number] Bilateral lower extremity venous duplex Clinical History: edema Comparison: None Technique: Duplex Doppler evaluation of the deep venous systems of both lower extremities from the common femoral veins to the popliteal veins including color Doppler and spectral/pulsed waveform analysis was performed. Findings: RIGHT SIDE: The common femoral vein demonstrates appropriate compressibility and waveform variability. There is compressibility/patency of the great saphenous vein at the proximal thigh. The femoral vein demonstrates appropriate compressibility and waveform variability. The deep femoral vein demonstrates appropriate compressibility and waveform variability. The popliteal vein demonstrates appropriate compressibility and waveform variability. There is normal compressibility at the tibioperoneal trunk. LEFT SIDE: The common femoral vein demonstrates appropriate compressibility and waveform variability. There is compressibility/patency of the great saphenous vein at the proximal thigh. The femoral vein demonstrates appropriate compressibility and waveform variability. The deep femoral vein demonstrates appropriate compressibility and waveform variability. The popliteal vein demonstrates appropriate compressibility and waveform variability. There is normal compressibility at the tibioperoneal trunk. Impression: No right or left femoropopliteal venous thrombosis. ATED BY: VENECIA ARCHIBALD MD DICTATED DATE/TIME: 04/17/24947 SIGNED BY: VENECIA ARCHIBALD MD SIGNED DATE/TIME: 04/17/24947 CC: [address] [address] Ph: [phone] DIAGNOSTIC IMAGING Diagnostic Imaging Report : [id number] Signed PATIENT: KATIA TERRAZAS ACCT: [id number] UNIT: [id number] : 1955 LOC: [facility] ROOM / BED: [facility] / B AGE / SEX: 68 / F ADM STATUS: ADM IN SERVICE 0000 ORDERING PHYSICIAN: FALLON OWEN RESIDENT PROCEDURE(s): LLEAD - Lt Low Ext Art Duplex REASON: CHECK LLE BLOOD SUPPLY ORDER NUMBER(s): [id number], ACCESSION NUMBER(s): [id number] Left Lower Extremity Arterial Duplex Clinical History: CHECK LLE BLOOD SUPPLY Comparison: None Technique: Duplex Doppler evaluation including color Doppler and spectral/pulsed waveform analysis of the lower extremity arteries was performed. Findings: LEFT Peak systolic velocities are as follows: PEWTER FABRICATOR 177 cm/s Deep femoral 85 cm/s SFA proximal 85 cm/s SFA mid-portion 105 cm/s SFA distal 67 cm/s Popliteal 49 cm/s Posterior tibial 31 cm/s Anterior tibial 49 cm/s Dorsalis pedis 7.4 cm/s The waveforms are triphasic and biphasic waveform throughout the proximal left lower extremity. Monophasic waveform in the left posterior tibial and dorsalis pedis arteries.. IMPRESSION: 1. No hemodynamically significant stenosis based on peak systolic velocity criteria. 2. Calcified plaque throughout the left lower extremity. 3. Monophasic waveform in the left posterior tibial anterior tibial and dorsalis pedis arteries. REFERENCE VALUES, [facility] ([facility]) vascular Imaging Lab Criteria: Peak systolic velocity ranges (in cm/sec) are as follows: <150 cm/s - <20 % stenosis 150-200 cm/s - 20-49% stenosis 200-300 cm/s - 50-75% stenosis >300 cm/s -> 75% stenosis ATED BY: MYRON RONDON Jr., DO DICTATED DATE/TIME: 04/17/241640 SIGNED BY: MYRON RONDON Jr., SIGNED DATE/TIME: 04/17/241640 CC: [facility] [id number] [place] [id number] Ph: [phone] DIAGNOSTIC IMAGING Diagnostic Imaging Report : [id number] Signed PATIENT: KATIA TERRAZAS ACCT: [id number] UNIT: [id number] : 1955 LOC: ER ROOM / BED: / AGE / SEX: 68 / F ADM STATUS: REG ER SERVICE 22 ORDERING PHYSICIAN: ALONZO FOX MD PROCEDURE(s): LFTCT - CT L FOOT WO CONTRAST REASON: pain ORDER NUMBER(s): [id number], ACCESSION NUMBER(s): [id number] EXAM: CT CT L FOOT WO CONTRAST INDICATION: pain EXAM DATE: 04/16/2024 04:35 PM COMPARISON: CT R FOOT WO CONTRAST on DOS: 12/16/20 TECHNIQUE: Multiple axial CT images of the left foot were obtained using bone algorithm. Axial and coronal reformatting was done. Bone and soft tissue windows were reviewed. Radiation Dose Information: CT Dose: CTDI volume is 7.75 mGy. Dose-length product is 186.71 mGy*cm Findings: There is no evidence of an acute fracture, dislocation, blastic, or lytic lesions. Mild degenerative changes of the hind foot, mid foot, and first PIP joint. No radiopaque foreign bodies. Diffuse osteopenia. Small plantar calcaneal enthesophyte. No joint effusion or superficial soft tissue abnormalities. Impression: 1. No acute osseous abnormality. 2. Mild degenerative changes. 3. Diffuse osteopenia. ATED BY: KONG BROWN DO DICTATED DATE/TIME: 04/16/241724 SIGNED BY: KONG BROWN DO SIGNED DATE/TIME: 04/16/241724 CC: Condition at Discharge: Fair Final Diagnosis/Problems List Cellulits in left foot Chronic microcytic hypochromic anemia: Reviewed iron panel likely anemia of chronic disease GI bleed to rule out: low possibility, with stool occult blood, IV Protonix daily to continue. Type 2 diabetes mellitus HbA1c 7.3 controlled: continue sliding scale insulin with CC diet,Target blood glucose in-hospital 140/180. History of osteoporosis Discharge Disposition: Home Discharge Instruct/Medications Diet: Consistent carbohydrate, Cardiac 2g Na,low cholest Activity: No Restrictions, As Tolerated Follow Up/Referral: PCP in 1-2 weeks. Discharge clinic (preferably with cook islander speaking residents) within 2 weeks. Follow up podiatry as scheduled. Medications: As per TRENTON take Augmentin bid as prescribed. Discharge Statement: "Patient was advised to return to the ER or call 911 if any headaches, dizziness, shortness of breath, chest pain, abdominal pain, bleeding, fevers, or worsening of medical condition. Patient was counseled about treatment plan, medications, possible side effects, patientverbalized understanding. All questions were answered to the best of my ability. This discharge took greater then 30 minutes in planning, reviewing documentation, counseling the patient, and discussing with other team members." ASSESSMENT ASSESSMENT Assessment Date of Service: Apr 18, 2024 Billing Provider: BRITTA DE PAZ MD Common Visit Codes: 69199-GLT/OBS DISCH DAY >30min FALLON OWEN RESIDENT Apr 18, 2024 07:10 BRITTA DE PAZ MD Apr 18, 2024 15:39
[2024-04-18 09:00] VITALS: BP 112/63; PULSE 85; RESP 16; TEMP 98; O2SAT 98
[2024-04-18] MEDS: VANCOMYCIN 500 MG in D5W 5% 100 ML IV SCH (11:43)
[2024-04-18 13:00] VITALS: BP 104/54; PULSE 77; RESP 16; TEMP 98.2; O2SAT 98
[2024-04-18] MEDS ORDERED: AUG875T PO (14:04)
[2024-04-18 17:00] VITALS: BP 109/57; PULSE 89; RESP 16; TEMP 98.4; O2SAT 97
[2024-04-18 18:27] VITALS: BP 109/57; PULSE 89; RESP 16; TEMP 98.4; O2SAT 97
== END 2024-04-18 19:48 | disposition home or self-care (01) | DRG 603 ==
LOC: ER 15:33 → OVERFLOW 22:06 → WEST WING 22:09
PROVIDERS: ADMIT Internal Medicine; ATTEND Emergency Medicine
DX: L03.116 Cellulitis of left lower limb (principal); K92.2 Gastrointestinal hemorrhage, unspecified; E44.0 Moderate protein-calorie malnutrition; Z68.1 Body mass index [BMI] 19.9 or less, adult; E11.9 Type 2 diabetes mellitus without complications; M06.9 Rheumatoid arthritis, unspecified; D50.9 Iron deficiency anemia, unspecified; M81.0 Age-related osteoporosis without current pathological fracture; D63.8 Anemia in other chronic diseases classified elsewhere; Z83.3 Family history of diabetes mellitus; Z99.3 Dependence on wheelchair; T45.1X5A Adverse effect of antineoplastic and immunosuppressive drugs, initial encounter
CPT/HCPCS: 36415; 73700; 80048; 80053; 80202; 80307; 81001; 82270; 82306; 82565; 82607; 82962; 83036; 83540; 83550; 84443; 85025; 85610; 85652; 85730; 86141; 87040; 87077; 87086; 87186; 87205; 93926; 93970; G0378; J1815; J2405; J2470; J7060

== ENCOUNTER 2024-06-06 14:50 | Inpatient (IN) | payer MEDICARE, MEDICAID ==
[~2024-06-06] VITALS: Ht 157.5 cm; Wt 37.6 kg
[~2024-06-06 14:50] MED LIST changes: +AUG875T PO; +LEFL20TA PO; +OMEP1CAP70 PO
[2024-06-06] MEDS: SODIUM CHLORIDE 0.9% 1,000 ML IV ONE ×2 (15:00→22:17)
--- NOTE | 2024-06-06 15:13 | ED.PDOC ---
SOB-HPI HPI Comments 69 Y F, with PMHX of arthritis and DM, presents to the ED with CC of Flu-Like symptoms. Per patient's son patient has been experiencing fever and cough for x1 week, with associated symptoms of poor appetite, nausea, and chills. Patient states that she has been unable to eat because hear throat is in excruciating pain; patient describes mouth and throat pain to be a 10/10. Patient denies any tobacco, ETOH, or illicit drug use. 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 DIETARY WORKER History Family History Family History: Family hx of DM Social History Smoker: Non-Smoker Alcohol: Denies ETOH Use Drugs: Denies Drug Use Lives In: Home Constitutional: reports: chills, fatigue, fever, weakness EENTM: reports: mouth pain; denies: blurred vision, double vision, ear bleeding, ear discharge, ear drainage, ear pain, ear ringing, eye pain, eye redness, hearing loss, mouth swelling, nasal discharge, nose bleeding, nose congestion, nose pain, photophobia, tearing, throat pain, throat swelling, voice changes, others Respiratory: reports: cough; denies: hemoptysis, orthopnea, SOB at rest, shortness of breath, SOB with excertion, stridor, wheezing, others Cardiovascular: denies: chest pain, dizzy spells, diaphoresis, Dyspnea on exertion, edema, irregular heart beat, left arm pain, lightheadedness, palpitations, PND, syncope, others Gastrointestinal: reports: poor appetite; denies: abdomen distended, abdominal pain, blood streaked bowels, constipated, diarrhea, dysphagia, difficulty swallowing, hematemesis, melena, nausea, poor fluid intake, rectal bleeding, rectal pain, vomiting, others Genitourinary: denies: abnormal vagina bleeding, burning, dyspareunia, dysuria, flank pain, frequency, hematuria, incontinence, pain, , vagina discharge, urgency, others Neurological: denies: dizziness, fainting, headache, left sided numbness, left sided weakness, numbness, paresthesia, pre-existing deficit, right sided numbness, right sided weakness, seizure, speech problems, tingling, tremors, weakness, others Musculoskeletal: denies: back pain, gout, joint pain, joint swelling, muscle pain, muscle stiffness, neck pain, others Integumetry: denies: bruises, change in color, change in hair/nails, dryness, laceration, lesions, lumps, rash, wounds, others Allergic/Immunocompromised: denies: Difficulty Healing, Frequent Infections, Hives, Itching, others Hematologic/Lymphatic: denies: anemia, blood clots, easy bleeding, easy bruising, swollen glands, others Endocrine: denies: excessive hunger, excessive sweating, excessive thirst, excessive urination, flushing, intolerance to cold, intolerance to heat, unexplained weight gain, unexplained weight loss, others Psychiatric: denies: anxiety, bipolar disorder, depression, hopeless, panic disorder, schizophrenia, sleepless, suicidal, others All Other Systems: Reviewed and Negative Physical Exam General Appearance: No Apparent Distress, Normal HEENT: Normal ENT Inspection, Pharynx Normal, TMs Normal Neck: Full Range of Motion, Non-Tender, Normal, Normal Inspection Respiratory: Chest Non-Tender, Lungs Clear, No Accessory Muscle Use, No Respiratory Distress, Normal Breath Sounds Cardiovascular: No Edema, No JVD, No Murmur, No Gallop, Normal Peripheral Pulses, Regular Rate/Rhythm Breast Exam: Deferred Gastrointestinal: No Organomegaly, Non Tender, No Pulsatile Mass, Normal Bowel Sounds, Soft Genitalia: Deferred Pelvic: Deferred Rectal: Deferred Extremities: No calf tenderness, Normal capillary refill, Normal inspection, Normal range of motion, Non-tender, No pedal edema Musculoskeletal : Apperance: Normal Neurologic: Alert, information writer II-XII nml as Tested, No Motor Deficits, Normal Affect, Normal Mood, No Sensory Deficits Cerebellar Function: Normal Reflexes: Normal Skin: Dry, Normal Color, Warm Lymphatic: No Adenopathy Was a procedure done? Was a procedure done?: No Differential Dx Differential Diagnosis: Bronchitis, Pneumonia, Sinusitis, Pharyngitis, URI X-Ray, Labs, Meds, VS Vital Signs Date Time Temp Pulse Resp B/P (MAP) Pulse Ox O2 Delivery O2 Flow Rate FiO2 06/06/24 14:53 98.6 133 20 118/63 (81) 99 Lab Test 06/06/24 17:02 06/06/24 16:43 06/06/24 15:28 Range/Units Urine Color Yellow Yellow Urine Clarity Turbid H Clear Urine pH 6.0 5.0-9.0 Urine Specific [place] 1.018 1.001-1.035 Urine Protein 1+ H Negative Urine Ketones 1+ H Negative Urine Blood 1+ H Negative /uL Urine Nitrite Negative Negative Urine Bilirubin Negative Negative Urine Urobilinogen Normal Negative mg/dL Urine Leukocyte Esterase 2+ Negative /uL Urine RBC 5 0 - 4 /hpf Urine WBC 74 0 - 5 /hpf Urine Squamous Epithelial Cells Few <5 /hpf Urine Bacteria Many H None Seen /hpf Urine Mucus Moderate None Seen Urine Glucose Normal Normal mg/dL Lactic Acid Level 1.8 2.8 *H 0.4-2.0 mmol/L Troponin I High Sensitivity 4 4 </=34 ng/L White Blood Count 2.2 L 4.4-10.8 10^3/uL Red Blood Count 3.07 L 4.0-5.20 10^6/uL Hemoglobin 9.1 L 12.2-16.2 g/dL Hematocrit 27.9 L 36.0-46.0 % Mean Corpuscular Volume 91.1 80.0-100.0 fL Mean Corpuscular Hemoglobin 29.8 28.0-32.0 pg Mean Corpuscular Hemoglobin Concent 32.7 32.0-36.0 g/dL Red Cell Distribution Width 18.6 H 11.8-14.3 % Platelet Count 80 L 140-450 10^3/uL Mean Platelet Volume 9.1 6.9-10.8 fL Neutrophils (%) (Auto) 37.0-80.0 % Lymphocytes (%) (Auto) 10.0-50.0 % Monocytes (%) (Auto) 0.0-12.0 % Basophils (%) (Auto) 0.0-2.0 % Neutrophils # (Auto) 1.6-8.6 10 ^3/uL Lymphocytes # (Auto) 0.4-5.4 10 ^3/uL Monocytes # (Auto) 0-1.3 10 ^3/uL Differential Total Cells Counted Pending Neutrophils % (Manual) Pending Band Neutrophils % (Manual) Pending Lymphocytes % (Manual) Pending Monocytes % (Manual) Pending Eosinophils % (Manual) Pending Basophils % (Manual) Pending Metamyelocytes % (manual) Pending Myelocytes % (Manual) Pending Promyelocytes % (Manual) Pending Blast Cells % (Manual) Pending Reactive Lymphocytes Pending Platelet Estimate Pending Sodium Level 139 136-145 mmol/L Potassium Level 5.0 3.5-5.1 mmol/L Chloride Level 105 98-107 mmol/L Carbon Dioxide Level 20 20-31 mmol/L Anion Gap 14 5-15 Blood Urea Nitrogen 15 9-23 mg/dL Creatinine 0.97 0.550-1.02 mg/dL Glomerular Filtration Rate Calc 64 >90 mL/min BUN/Creatinine Ratio 15.5 10.0-20.0 Serum Glucose 210 H 74-106 mg/dL Calcium Level 10.7 H 8.7-10.4 mg/dL Total Bilirubin 0.6 0.2-1.0 mg/dL Aspartate Amino Transferase (AST) 21 13-40 U/L Alanine Aminotransferase (ALT) 15 7-40 U/L Alkaline Phosphatase 73 46-116 U/L Total Protein 8.4 H 5.7-8.2 g/dL Albumin 4.2 3.2-4.8 g/dL [place] [address] Ph: [phone] DIAGNOSTIC IMAGING Diagnostic Imaging Report : [id number] Signed PATIENT: KATIA TERRAZASACCT: [id number] UNIT: [id number] : 1955 LOC: ER ROOM / BED: / AGE / SEX: 69 / F ADM STATUS: REG ER SERVICE 1500 ORDERING PHYSICIAN: HOLLY CRUZ MD PROCEDURE(s): CXR2 - CHEST TWO VIEWS ROUTINE REASON: weakness ORDER NUMBER(s): [id number], ACCESSION NUMBER(s): [id number] XY CHEST TWO VIEWS ROUTINE CLINICAL HISTORY: weakness COMPARISON: None TECHNIQUE: Frontal and lateral view of the chest was obtained FINDINGS: Lines and Tubes: None Lungs: No focal consolidation. Hyperinflation of the lungs. Pleura: No effusion. No pneumothorax. Cardiomediastinal contours: Unremarkable Bones: No acute osseous abnormality. Severe degenerative changes of the bilateral shoulders, worse on the right, with obliteration of the right glenoid and severe right humeral head deformity. IMPRESSION: 1. No radiographic evidence of acute cardiopulmonary disease. Hyperinflation of the lungs. HS:Y ATED BY: ALONDRA BRITT DO DICTATED DATE/TIME: 06/06/241529 SIGNED BY: ALONDRA BRITT DO SIGNED DATE/TIME: 06/06/241529 CC: Time of 1ST Reevaluation: 15:36 Reevaluation 1ST: Improved Patient Education/Counseling: Diagnosis, Treatment Family Education/Counseling: No Family Present Additional Information The following tests were ordered, and results were reviewed by me: TROPONIN X3, CBC, CMP, LACTIC ACID W/ REFLEX, UA, CXR Additional Information was gathered from interviewing the following independent historians: FAMILY I reviewed and agreed with the following test results read by other providers: CXR I discussed treatment and results with medical personnel and: FAMILY Departure 1 Departure Time of Disposition: 17:41 Impression: Primary Impression: Acute cystitis Qualified Codes: N30.01 - Acute cystitis with hematuria Additional Impressions: Generalized weakness Fever Qualified Codes: R50.9 - Fever, unspecified Disposition: ADMITTED INPATIENT Admit to: Med Surg Condition: Serious Critical Care Note Critical Care Time?: No Stability Stability form required: No Heart Score Heart Score: Heart Score Response (Comments) Value History N/A 0 EKG N/A 0 Age N/A 0 Risk Factors N/A 0 Troponin N/A 0 Total 0 I personally scribed for HOLLY CRUZ MD ([email or web address]) on 06/06/24 at 15:13. Electronically submitted by Lita Hernandez ([email or web address]). I personally scribed for HOLLY CRUZ MD ([email or web address]) on 06/06/24 at 15:17. Electronically submitted by Lita Hernandez ([facility]). I personally scribed for HOLLY CRUZ MD ([email or web address]) on 06/06/24 at 15:36. Electronically submitted by Lita Hernandez ([facility] [email or web address]). I personally scribed for HOLLY CRUZ MD ([email or web address]) on 06/06/24 at 15:41. Electronically submitted by Lita Hernandez ([email or web address]). HOLLY CRUZ MD Jun 06, 2024 15:13
--- NOTE | 2024-06-06 15:32 | DVH ---
XY CHEST TWO VIEWS ROUTINE CLINICAL HISTORY: weakness COMPARISON: None TECHNIQUE: Frontal and lateral view of the chest was obtained FINDINGS: Lines and Tubes: None Lungs: No focal consolidation. Hyperinflation of the lungs. Pleura: No effusion. No pneumothorax. Cardiomediastinal contours: Unremarkable Bones: No acute osseous abnormality. Severe degenerative changes of the bilateral shoulders, worse on the right, with obliteration of the right glenoid and severe right humeral head deformity. IMPRESSION: 1. No radiographic evidence of acute cardiopulmonary disease. Hyperinflation of the lungs. HS:Y
[2024-06-06 16:19] LABS: Alanine Aminotransferase 15 U/L (7-40); Albumin 4.2 g/dL (3.2-4.8); Alkaline Phosphatase 73 U/L (46-116); Anion Gap 14 (5-15); Aspartate Aminotransferase 21 U/L (13-40); Chloride 105 mmol/L (98-107); Sodium 139 mmol/L (136-145)
[2024-06-06 16:20] LABS: Bilirubin, Total 0.6 mg/dL (0.2-1.0)
[2024-06-06 16:22] LABS: Calcium 10.7 mg/dL (8.7-10.4); Carbon Dioxide 20 mmol/L (20-31); Glucose 210 mg/dL (74-106); Total Protein 8.4 g/dL (5.7-8.2)
[2024-06-06 16:31] LABS: BUN/Creatinine Ratio 15.5 (10.0-20.0); Blood Urea Nitrogen 15 mg/dL (9-23); Lactic Acid w/Reflex 2.8 mmol/L (0.4-2.0)
[2024-06-06 16:32] LABS: Hematocrit 27.9 % (36.0-46.0); Hemoglobin 9.1 g/dL (12.2-16.2); Mean Corpuscular Hemoglobin 29.8 pg (28.0-32.0); Mean Corpuscular Hgb Conc. 32.7 g/dL (32.0-36.0); Mean Corpuscular Volume 91.1 fL (80.0-100.0); Platelet Count (auto) 80 10^3/uL (140-450); Red Blood Cells 3.07 10^6/uL (4.0-5.20); Red Cell Distribution Width 18.6 % (11.8-14.3); White Blood Cell 2.2 10^3/uL (4.4-10.8)
[2024-06-06 16:42] LABS: Band Neutrophils % (manual) 0; Basophils % (manual) 0 (0.0-2.0); Blast Cells 0; Eosinophils % (manual) 0 (0-7); Metamyelocytes % 0; Myelocytes % 0; Promyelocytes % 0
[2024-06-06 17:19] LABS: Urine Bacteria MANY /hpf (None Seen); Urine Blood 1+ /uL (Negative); Urine Clarity Turbid (Clear); Urine Color Yellow (Yellow); Urine Mucus MODERATE (None Seen); Urine Protein, UAD 1+ (Negative); Urine Specific Gravity 1.018 (1.001-1.035); Urine Urobilinogen Normal (Negative); Urine WBC 74 /hpf (0 - 5)
[2024-06-06 17:56] LABS: Lymphocytes % (manual) 45 (10.0-50.0); Monocytes % (manual) 17 (0-12); Platelet Estimate Decreased; Reactive Lymphocytes 1
[2024-06-06 17:57] LABS: Large Platelets FEW
[2024-06-06] MEDS ORDERED: TEMAZEPAM 15 MG CAP PO PRN (20:15)
[2024-06-06] MEDS ORDERED: ACETAMINOPHEN 325 MG TAB PO PRN (20:15)
[2024-06-06] MEDS ORDERED: ONDANSETRON HCL 4 MG/2 ML VIAL IV PRN (20:15)
[2024-06-06] MEDS ORDERED: DEXTROSE (50%) 50ML SYRG IV PRN (20:15)
[2024-06-06] MEDS: ACCU-CHEK COMFORT CURVE STRIP VI SCH (22:00)
[2024-06-06 22:43] LABS: Rapid Influenza A Negative (Negative); Rapid Influenza B Negative (Negative)
[2024-06-06 22:44] LABS: COVID19 ANTIGEN SOFIA FIA NEGATIVE (NEGATIVE)
[2024-06-06] MEDS: InsuLIN REG 1unit/0.01ml Soln (100units/ml) SC SCH (22:45)
[2024-06-06] MEDS: CEFEPIME 2GM/50ML NS 50 ML IV ONE (23:20)
[2024-06-07 04:22] LABS: Potassium 3.6 mmol/L (3.5-5.1); Sodium 140 mmol/L (136-145)
[2024-06-07 04:23] LABS: Anion Gap 9 (5-15); Calcium 9.3 mg/dL (8.7-10.4); Carbon Dioxide 21 mmol/L (20-31)
[2024-06-07 04:28] LABS: Blood Urea Nitrogen 17 mg/dL (9-23); Glucose 81 mg/dL (74-106)
[2024-06-07 04:30] LABS: Chloride 110 mmol/L (98-107)
--- NOTE | 2024-06-07 04:44 | DVHHP2 ---
History of Present Illness Reason for Visit: Generalized weakness History of Present Illness 69-year-old female presents for evaluation of generalized weakness. Patient endorses a one-week history of flu-like symptoms. She endorses having fever intermittently, cough and a sore throat. She also reports decreased appetite. Denies cardiac or respiratory complaints. Past Medical History Diabetes mellitus and arthritis Past Surgical History Noncontributory Family History Diabetes mellitus Smoke: No ALCOHOL: none Drugs: None Lives: with Family Review of Systems Review of Systems Review of systems are currently negative otherwise addressed in HPI. Allergies: Coded Allergies: NO KNOWN ALLERGIES (Unverified , 10/13/19) Medications Current Medications Medications Dose Ordered Sig/Rikki Route Start Time Stop Time Status Last Admin Dose Admin Ceftriaxone Sodium 50 ml @ 100 mls/hr DAILY@09 IV 06/07/24 09:00 Diagnostic Test (Pha) 1 strip ACHS 06/06/24 22:00 06/06/24 22:00 1 STRIP Insulin Human Regular ACHS SC 06/06/24 22:00 06/06/24 22:45 3 UNITS Dextrose 50 ml UD PRN IV 06/06/24 20:15 Temazepam 15 mg QHSP PRN PO 06/06/24 20:15 Ondansetron HCl 4 mg Q4HP PRN IV 06/06/24 20:15 Acetaminophen 650 mg Q6HP PRN PO 06/06/24 20:15 Exam Vital Signs Vital Signs Date Time Temp Pulse Resp B/P (MAP) Pulse Ox O2 Delivery O2 Flow Rate FiO2 06/07/24 00:57 97.8 84 18 107/59 (75) 98 97.8 06/06/24 23:08 Room Air Exam Gen: 69-year-old female in mild distress Skin: Warm, dry, normal color and texture, no rash. HEENT: Normocephalic atraumatic, mucous membranes moist and pink. Neck: Cervical and supraclavicular nodes normal without enlargement, trachea is midline, thyroid gland is normal without masses. Pulmonary: Clear to auscultation and percussion bilaterally. Cardiac: Regular rate and rhythm. No murmur Abdomen: Soft, nontender, nondistended, bowel sounds present all 4 quadrants, no guarding, no rigidity, no organomegaly. Extremities: No cyanosis, clubbing, no edema Neuro: Cranial nerves II through XII grossly intact, normal affect and speech, no focal motor deficits. Labs/Xrays ORDERING PHYSICIAN: HOLLY CRUZ MD PROCEDURE(s): CXR2 - CHEST TWO VIEWS ROUTINE REASON: weakness ORDER NUMBER(s): [id number], ACCESSION NUMBER(s): [id number] XY CHEST TWO VIEWS ROUTINE CLINICAL HISTORY: weakness COMPARISON: None TECHNIQUE: Frontal and lateral view of the chest was obtained FINDINGS: Lines and Tubes: None Lungs: No focal consolidation. Hyperinflation of the lungs. Pleura: No effusion. No pneumothorax. Cardiomediastinal contours: Unremarkable Bones: No acute osseous abnormality. Severe degenerative changes of the bilateral shoulders, worse on the right, with obliteration of the right glenoid and severe right humeral head deformity. IMPRESSION: 1. No radiographic evidence of acute cardiopulmonary disease. Hyperinflation of the lungs. HS:Y Labs Test 06/07/24 03:39 06/06/24 22:22 06/06/24 21:46 06/06/24 18:51 Range/Units Sodium Level 140 136-145 mmol/L Potassium Level 3.6 3.5-5.1 mmol/L Chloride Level 110 H 98-107 mmol/L Carbon Dioxide Level 21 20-31 mmol/L Anion Gap 9 5-15 Blood Urea Nitrogen 17 9-23 mg/dL Creatinine 0.81 0.550-1.02 mg/dL Glomerular Filtration Rate Calc 79 >90 mL/min BUN/Creatinine Ratio 21.0 H 10.0-20.0 Serum Glucose 81 74-106 mg/dL Calcium Level 9.3 8.7-10.4 mg/dL POC Glucose 190 H 70-106 mg/dl Influenza Type A Antigen Negative Negative Influenza Type B Antigen Negative Negative SARS-CoV-2 Antigen (Rapid) Negative NEGATIVE Lactic Acid Level 1.5 0.4-2.0 mmol/L Troponin I High Sensitivity 4 </=34 ng/L Test 06/06/24 17:02 06/06/24 15:28 Range/Units Urine Color Yellow Yellow Urine Clarity Turbid H Clear Urine pH 6.0 5.0-9.0 Urine Specific [place] 1.018 1.001-1.035 Urine Protein 1+ H Negative Urine Ketones 1+ H Negative Urine Blood 1+ H Negative /uL Urine Nitrite Negative Negative Urine Bilirubin Negative Negative Urine Urobilinogen Normal Negative mg/dL Urine Leukocyte Esterase 2+ Negative /uL Urine RBC 5 0 - 4 /hpf Urine WBC 74 0 - 5 /hpf Urine Squamous Epithelial Cells Few <5 /hpf Urine Bacteria Many H None Seen /hpf Urine Mucus Moderate None Seen Urine Glucose Normal Normal mg/dL Differential Total Cells Counted 100.0 100 Neutrophils % (Manual) 37 37.0-80.0 Band Neutrophils % (Manual) 0 Lymphocytes % (Manual) 45 10.0-50.0 Monocytes % (Manual) 17 H 0-12 Eosinophils % (Manual) 0 0-7 Basophils % (Manual) 0 0.0-2.0 Metamyelocytes % (manual) 0 Myelocytes % (Manual) 0 Promyelocytes % (Manual) 0 Blast Cells % (Manual) 0 Reactive Lymphocytes 1 Platelet Estimate Decreased Large Platelets Few Total Bilirubin 0.6 0.2-1.0 mg/dL Aspartate Amino Transferase (AST) 21 13-40 U/L Alanine Aminotransferase (ALT) 15 7-40 U/L Alkaline Phosphatase 73 46-116 U/L Total Protein 8.4 H 5.7-8.2 g/dL Albumin 4.2 3.2-4.8 g/dL Assessment/Plan Assessment/Plan Assessment Acute cystitis Acute bronchitis Diabetes mellitus Plan Admit the patient to [facility] to the hospitalist Emigdio Resume home medications Continue treatment per orders Plan discussed with: Patient My Orders Orders - OCOPER ESQUIVEL Procedure Category Date Status Time Admit ADMIT 06/06/24 Transmitted 20:06 Consistent DIET 06/07/24 Transmitted Carb(Ccho)Diabetes Breakfast Ceftriaxone 1gm/50ml PHA 06/07/24 In Process D5w (Emigdio) 09:00 Urine Bacterial ASIA 06/06/24 In Process Culture 20:07 Sodium Chloride 0.9% PHA 06/06/24 In Process 20:15 Glucose Blood PHA 06/06/24 In Process (Accu-Chek Comfort 22:00 Insulin R (Human) PHA 06/06/24 In Process (Insulin R) 22:00 Dextrose 50% Syringe PHA 06/06/24 In Process 20:15 Temazepam (Restoril) PHA 06/06/24 In Process 20:15 Ondansetron Hcl PHA 06/06/24 In Process (Zofran) 20:15 Complete Blood Count LAB 06/07/24 In Process 04:00 Condition: Stable PATRICK 06/06/24 In Process 20:07 Acetaminophen Tablet PHA 06/06/24 In Process (Tylenol Tablet) 20:15 Bedrest With Bathroom PATRICK 06/06/24 In Process Privileg 20:07 Date of Service: Jun 06, 2024 Billing Provider: COOPER ESQUIVEL Common Visit Codes: [id number] INP/OBS CARE (MOD) COOPER ESQUIVEL Jun 07, 2024 04:44
[2024-06-07 06:26] LABS: Hematocrit 21.8 % (36.0-46.0); Hemoglobin 7.3 g/dL (12.2-16.2); Mean Corpuscular Hgb Conc. 33.6 g/dL (32.0-36.0); Platelet Count (auto) 92 10^3/uL (140-450); Red Blood Cells 2.43 10^6/uL (4.0-5.20); Red Cell Distribution Width 18.6 % (11.8-14.3); White Blood Cell 2.3 10^3/uL (4.4-10.8)
[2024-06-07 06:29] LABS: Mean Corpuscular Hemoglobin 30.2 pg (28.0-32.0); Mean Corpuscular Volume 89.8 fL (80.0-100.0)
[2024-06-07 06:37] LABS: Band Neutrophils % (manual) 0; Basophils % (manual) 0 (0.0-2.0); Eosinophils % (manual) 0 (0-7); Myelocytes % 0; Promyelocytes % 0; Reactive Lymphocytes 0
[2024-06-07 08:53] LABS: Blast Cells 2; Lymphocytes % (manual) 40 (10.0-50.0); Metamyelocytes % 1; Monocytes % (manual) 17 (0-12); Platelet Estimate Decreased
[2024-06-07] MEDS: cefTRIAXone 1GM/50ML D5W 50 ML IV SCH (09:08)
[2024-06-07 09:56] VITALS: BP 110/58; PULSE 87; RESP 18; TEMP 98.5; O2SAT 97
[2024-06-07] MEDS ORDERED: METF500S3 PO (12:08)
[2024-06-07] MEDS ORDERED: METH2.5T62 PO (12:09)
[2024-06-07 13:00] VITALS: BP 108/56; PULSE 88; RESP 17; TEMP 97.6; O2SAT 98
[2024-06-07] MEDS ORDERED: FOLI-119 PO (14:42)
[2024-06-07] MEDS ORDERED: METH2.5T PO (14:42)
[2024-06-07] MEDS ORDERED: ALEN70TA74 PO (14:43)
--- NOTE | 2024-06-07 15:06 | DVHPN2 ---
Reviewed: Care Plan, H&P, Labs, Medications, Previous Orders, Radiology Changes from previous H/P or p: No Changes Objective Vitals Vital Signs Date Time Temp Pulse Resp B/P (MAP) Pulse Ox O2 Delivery O2 Flow Rate FiO2 06/07/24 10:10 Room Air* 0 21 06/07/24 08:30 97.9 85 15 118/60 (79) 98 97.9 Intake/Output Intake and Output 06/07/24 07:00 Intake Total 1050 ml Balance 1050 ml Intake IV Total 1050 ml Medications Current Medications Medications Dose Ordered Sig/Rikki Route Start Time Stop Time Status Last Admin Dose Admin Ceftriaxone Sodium 50 ml @ 100 mls/hr DAILY@09 IV 06/07/24 09:00 06/07/24 09:08 100 MLS/HR Diagnostic Test (Pha) 1 strip ACHS 06/06/24 22:00 06/07/24 06:32 1 STRIP Insulin Human Regular ACHS SC 06/06/24 22:00 06/07/24 06:36 2 UNITS Dextrose 50 ml UD PRN IV 06/06/24 20:15 Temazepam 15 mg QHSP PRN PO 06/06/24 20:15 Ondansetron HCl 4 mg Q4HP PRN IV 06/06/24 20:15 Acetaminophen 650 mg Q6HP PRN PO 06/06/24 20:15 Laboratory Results Laboratory Tests 06/07/24 03:39 06/07/24 06:07 Chemistry Test 06/06/24 15:28 06/07/24 03:39 Albumin 4.2 g/dL (3.2-4.8) Calcium Level 10.7 mg/dL (8.7-10.4) H 9.3 mg/dL (8.7-10.4) Total Protein 8.4 g/dL (5.7-8.2) H LFT Test 06/06/24 15:28 Alanine Aminotransferase (ALT) 15 U/L (7-40) Alkaline Phosphatase 73 U/L (46-116) Aspartate Amino Transferase (AST) 21 U/L (13-40) Total Bilirubin 0.6 mg/dL (0.2-1.0) Urinalysis Test 06/06/24 17:02 Urine Color Yellow (Yellow) Urine Clarity Turbid (Clear) H Urine pH 6.0 (5.0-9.0) Urine Specific [place] 1.018 (1.001-1.035) Urine Protein 1+ (Negative) H Urine Ketones 1+ (Negative) H Urine Blood 1+ /uL (Negative) H Urine Nitrite Negative (Negative) Urine Bilirubin Negative (Negative) Urine Urobilinogen Normal mg/dL (Negative) Urine Leukocyte Esterase 2+ /uL (Negative) Urine RBC 5 /hpf (0 - 4) Urine WBC 74 /hpf (0 - 5) Urine Squamous Epithelial Cells Few /hpf (<5) Urine Bacteria Many /hpf (None Seen) H Urine Mucus Moderate (None Seen) Urine Glucose Normal mg/dL (Normal) Microbiology Microbiology Date/Time Source Procedure Growth Status 06/06/24 17:02 Voided Urine Urine Culture - Preliminary Resulted Labs and/or images reviewed: Labs reviewed by me, Image(s) reviewed by me Assessment/Plan Assessment/Plan Sepsis secondary to urinary tract infection: Blood cultures urine cultures Acute urinary tract infection: Rocephin acute metabolic encephalopathy Diabetes: Insulin sliding scale Arthritis consult for Dr. Valverde Pancytopenia WBC 2.2 platelets 80k hemoglobin 9.1 Moderate malnutrition Time spent 45 minutes Patient is full code Advanced care planning time 20 minutes Plan discussed with: Patient Date of Service: Jun 07, 2024 Billing Provider: RAYMOND SANTIAGO MD Common Visit Codes: [id number] INP/OBS CARE(HIGH) Secondary Visit Codes: [id number] CARE PLAN 30 MINUTES RAYMOND SANTIAGO MD Jun 07, 2024 15:06
[2024-06-07] MEDS: AZITHROMYCIN 250 MG TAB PO ONE (16:06)
[2024-06-07] MEDS: guaiFENesin-DM 100/10mg/5ml SYR PO PRN (16:06)
[2024-06-07 17:00] VITALS: BP 118/59; PULSE 89; RESP 14; TEMP 98.6; O2SAT 97
[2024-06-07 20:00] VITALS: PULSE 101; RESP 17
[2024-06-07 21:00] VITALS: BP 116/55; PULSE 93; RESP 18; TEMP 98.9; O2SAT 95
[2024-06-08] VITALS (8 sets, daily range): BP systolic 99–126; BP diastolic 35–63; PULSE 87–113; RESP 16–18; TEMP 97.9–99.9; O2SAT 95–98
[2024-06-08] MEDS: AZITHROMYCIN 250 MG TAB PO SCH (09:43)
--- NOTE | 2024-06-08 12:57 | DVH ---
EXAM: XY CHEST XRAY 1 VIEW Indication: SOB Technique: Single frontal view of the chest was obtained Comparison: None FINDINGS: Lines and Tubes: None Lungs: No focal consolidation. Pleura: No effusion. No pneumothorax. Cardiomediastinal contours: Unremarkable Bones: No acute osseous abnormality. IMPRESSION: No acute cardiopulmonary disease.
--- NOTE | 2024-06-08 13:15 | DVHPN2 ---
Reviewed: Care Plan, H&P, Labs, Medications, Previous Orders, Radiology Changes from previous H/P or p: No Changes Objective Vitals Vital Signs Date Time Temp Pulse Resp B/P (MAP) Pulse Ox O2 Delivery O2 Flow Rate FiO2 06/08/24 09:00 98.0 89 16 100/48 (65) 98 98.0 06/08/24 08:00 Room Air* 0 21 Intake/Output Intake and Output 06/08/24 07:00 Intake Total 800 ml Balance 800 ml Intake Oral 800 ml # Voids 3 Medications Current Medications Medications Dose Ordered Sig/Rikki Route Start Time Stop Time Status Last Admin Dose Admin Ceftriaxone Sodium 50 ml @ 100 mls/hr DAILY@09 IV 06/07/24 09:00 06/08/24 10:50 100 MLS/HR Diagnostic Test (Pha) 1 strip ACHS 06/06/24 22:00 06/08/24 11:46 1 STRIP Insulin Human Regular ACHS SC 06/06/24 22:00 06/08/24 11:47 4 UNITS Dextrose 50 ml UD PRN IV 06/06/24 20:15 Temazepam 15 mg QHSP PRN PO 06/06/24 20:15 Ondansetron HCl 4 mg Q4HP PRN IV 06/06/24 20:15 Acetaminophen 650 mg Q6HP PRN PO 06/06/24 20:15 Azithromycin 500 mg DAILY PO 06/08/24 10:00 06/08/24 09:43 500 MG Guaifenesin/ Dextromethorphan 15 ml Q8HP PRN PO 06/07/24 15:45 06/07/24 16:06 15 ML Laboratory Results Laboratory Tests 06/07/24 03:39 06/07/24 06:07 Urinalysis Test 06/06/24 17:02 Urine Color Yellow (Yellow) Urine Clarity Turbid (Clear) H Urine pH 6.0 (5.0-9.0) Urine Specific [place] 1.018 (1.001-1.035) Urine Protein 1+ (Negative) H Urine Ketones 1+ (Negative) H Urine Blood 1+ /uL (Negative) H Urine Nitrite Negative (Negative) Urine Bilirubin Negative (Negative) Urine Urobilinogen Normal mg/dL (Negative) Urine Leukocyte Esterase 2+ /uL (Negative) Urine RBC 5 /hpf (0 - 4) Urine WBC 74 /hpf (0 - 5) Urine Squamous Epithelial Cells Few /hpf (<5) Urine Bacteria Many /hpf (None Seen) H Urine Mucus Moderate (None Seen) Urine Glucose Normal mg/dL (Normal) Microbiology Microbiology Date/Time Source Procedure Growth Status 06/06/24 18:51 Blood Blood Culture - Preliminary NO GROWTH AFTER 24 HOURS OF INCUBATION. Resulted 06/06/24 17:02 Voided Urine Urine Culture - Final Complete Labs and/or images reviewed: Labs reviewed by me, Image(s) reviewed by me Assessment/Plan Assessment/Plan Sepsis secondary to urinary tract infection: Blood cultures negative, urine cultures mixed Acute urinary tract infection: Rocephin acute metabolic encephalopathy Diabetes: Insulin sliding scale Arthritis Pancytopenia WBC 2.2 platelets 80k hemoglobin 9.[address] Caldera Moderate malnutrition Pain in the mouth: probably secondary to granulocytopenia Time spent 45 minutes Patient is full code Advanced care planning time [address] Anderson Son Castillo: [phone] at bedside Patient lives with her son Plan discussed with: Patient My Orders Orders - RAYMOND SANTIAGO MD Procedure Category Date Status Time * Hematology/Oncology CONS 06/07/24 Transmitted Consult 15:06 Azithromycin Tablet PHA 06/08/24 In Process (Zithromax Tablet) 10:00 Guaifenesin-Dextromet PHA 06/07/24 In Process Liquid (Robitussin 15:45 Chest Xray 1 View XY 06/08/24 Resulted 08:00 Mechanical Soft Diet DIET 06/07/24 Transmitted Dinner Date of Service: Jun 08, 2024 Billing Provider: RAYMOND SANTIAGO MD Common Visit Codes: [id number] INP/OBS CARE(HIGH) RAYMOND SANTIAGO MD Jun 08, 2024 13:15
--- NOTE | 2024-06-08 13:19 | DVHINCON2 ---
Date of service: Jun 08, [address] mamadou Pride Reason for Consultation Pancytopenia secondary to rheumatoid arthritis and methotrexate History of Present Illness 69 years old female who has a history of diabetes and has a diagnosis of rheumatoid arthritis and has been taking methotrexate over the last 1 year 6 pills a week. She follows with Dr. Jonathan Thompson She is admitted with a UTI. She does have a history of diabetes mellitus. She does complain of some sores in the mouth which could be secondary to methotrexate. Does complain of some coughing I am consulted for a white count of 2.3 hemoglobin 7.3 MCV 89.8 platelets 92,000 confirmed on the blood smear GFR 79 blood sugar 202 calcium 9.3 serum iron 37 TIBC 243 saturation 15.2 CRP 2.06 total protein 8.4 albumin 4.2 B12 1609 TSH 2.10 Stool guaiac is negative PT/INR 1.01 and PTT 24.5 No complaints of any weight loss. No fevers night sweats no bruising or bleeding. No headaches nausea vomitingPatient does complain of generalized weakness and had some flulike symptoms Past Medical History Diabetes Rheumatoid arthritis History of anemia for over a year Right hip and right hip surgery Family History: Diabetes mellitus G8 FATHER, Onset:30's - 40 Hypertension G8 MOTHER Family History No malignancy or hematological disorders Social History No smoking drinking or any drugs Allergies: Coded Allergies: NO KNOWN ALLERGIES (Unverified , 10/13/19) Home Meds Reported Medications Omeprazole (Omeprazole Dr) 20 Mg Cap, 1 CAP PO DAILY for 30 Days, #30 06/07/24 Leflunomide (Arava) 20 Mg Tab, 1 TAB PO DAILY for 30 Days, #30 06/07/24 Alendronate Sodium (Alendronate Sodium) 70 Mg Tab, 70 MG PO Q7D, TAB 06/07/24 Folic Acid (Folic Acid) 1 Mg Tab, 1 MG PO DAILY for 30 Days, MG 06/07/24 Methotrexate (Methotrexate) 2.5 Mg Tab, 8 TAB PO QWEEKLY, #32 TAB 2 Refills 06/07/24 Metformin HCl (Metformin Hydrochloride) 500 Mg/5 Ml Marianne, 500 MG PO, ML 06/07/24 Current Medications Current Medications Medications (Trade) Dose Ordered Sig/Rikki Route PRN Reason Start Time Stop Time Status Last Admin Azithromycin (Zithromax Tablet) 500 mg DAILY PO 06/08/24 10:00 06/08/24 09:43 Guaifenesin/ Dextromethorphan (Robitussin-Dm Liquid) 15 ml Q8HP PRN PO FOR COUGH 06/07/24 15:45 06/07/24 16:06 Vital Signs Vital Signs Date Time Temp Pulse Resp B/P (MAP) Pulse Ox O2 Delivery O2 Flow Rate FiO2 06/08/24 09:00 98.0 89 16 100/48 (65) 98 98.0 06/08/24 08:00 Room Air* 0 21 Physical Exam GENERAL: The patient is a moderately built and nourished ,in no distress, alert and oriented. female HEAD AND NECK: Unremarkable. No neck nodes or masses.Has some sores in the mouth Conjunctivae: Unremarkable for any mucosal hemorrhage or inflammation. Thyroid is nonpalpable. Throat is unremarkable. SPINE: No deformities or tenderness. CHEST: Chest wall, no tenderness. LUNGS: Clear. CARDIOVASCULAR: Regular sinus rhythm. No murmurs or gallops. ABDOMEN: No organomegaly, tenderness or ascites. Bowel sounds present. EXTREMITIES: No clubbing, edema or cyanosis. Peripheral pulses palpable. No calf tenderness. LYMPHATICS: No significant lymphadenopathy. NEUROLOGIC: No focal neurological deficits. SKIN: Unremarkable for any petechiae, purpura, or ecchymosis. Psych: No abnormalities Available data reviewed Labs/Diagnostic Data Labs Test 06/08/24 11:39 06/07/24 06:07 06/07/24 03:39 06/06/24 21:46 Range/Units POC Glucose 202 H 70-106 mg/dl White Blood Count 2.3 L 4.4-10.8 10^3/uL Red Blood Count 2.43 L 4.0-5.20 10^6/uL Hemoglobin 7.3 #L 12.2-16.2 g/dL Hematocrit 21.8 #L 36.0-46.0 % Mean Corpuscular Volume 89.8 80.0-100.0 fL Mean Corpuscular Hemoglobin 30.2 28.0-32.0 pg Mean Corpuscular Hemoglobin Concent 33.6 32.0-36.0 g/dL Red Cell Distribution Width 18.6 H 11.8-14.3 % Platelet Count 92 L 140-450 10^3/uL Mean Platelet Volume 8.6 6.9-10.8 fL Neutrophils (%) (Auto) 37.0-80.0 % Lymphocytes (%) (Auto) 10.0-50.0 % Monocytes (%) (Auto) 0.0-12.0 % Basophils (%) (Auto) 0.0-2.0 % Neutrophils # (Auto) 1.6-8.6 10 ^3/uL Lymphocytes # (Auto) 0.4-5.4 10 ^3/uL Monocytes # (Auto) 0-1.3 10 ^3/uL Differential Total Cells Counted 100.0 100 Neutrophils % (Manual) 40 37.0-80.0 Band Neutrophils % (Manual) 0 Lymphocytes % (Manual) 40 10.0-50.0 Monocytes % (Manual) 17 H 0-12 Eosinophils % (Manual) 0 0-7 Basophils % (Manual) 0 0.0-2.0 Metamyelocytes % (manual) 1 Myelocytes % (Manual) 0 Promyelocytes % (Manual) 0 Blast Cells % (Manual) 2 Reactive Lymphocytes 0 Platelet Estimate Decreased Sodium Level 140 136-145 mmol/L Potassium Level 3.6 3.5-5.1 mmol/L Chloride Level 110 H 98-107 mmol/L Carbon Dioxide Level 21 20-31 mmol/L Anion Gap 9 5-15 Blood Urea Nitrogen 17 9-23 mg/dL Creatinine 0.81 0.550-1.02 mg/dL Glomerular Filtration Rate Calc 79 >90 mL/min BUN/Creatinine Ratio 21.0 H 10.0-20.0 Serum Glucose 81 74-106 mg/dL Calcium Level 9.3 8.7-10.4 mg/dL Influenza Type A Antigen Negative Negative Influenza Type B Antigen Negative Negative SARS-CoV-2 Antigen (Rapid) Negative NEGATIVE Test 06/06/24 18:51 06/06/24 17:02 06/06/24 15:28 Range/Units Lactic Acid Level 1.5 0.4-2.0 mmol/L Troponin I High Sensitivity 4 </=34 ng/L Urine Color Yellow Yellow Urine Clarity Turbid H Clear Urine pH 6.0 5.0-9.0 Urine Specific [place] 1.018 1.001-1.035 Urine Protein 1+ H Negative Urine Ketones 1+ H Negative Urine Blood 1+ H Negative /uL Urine Nitrite Negative Negative Urine Bilirubin Negative Negative Urine Urobilinogen Normal Negative mg/dL Urine Leukocyte Esterase 2+ Negative /uL Urine RBC 5 0 - 4 /hpf Urine WBC 74 0 - 5 /hpf Urine Squamous Epithelial Cells Few <5 /hpf Urine Bacteria Many H None Seen /hpf Urine Mucus Moderate None Seen Urine Glucose Normal Normal mg/dL Large Platelets Few Total Bilirubin 0.6 0.2-1.0 mg/dL Aspartate Amino Transferase (AST) 21 13-40 U/L Alanine Aminotransferase (ALT) 15 7-40 U/L Alkaline Phosphatase 73 46-116 U/L Total Protein 8.4 H 5.7-8.2 g/dL Albumin 4.2 3.2-4.8 g/dL Microbiology Date/Time Source Procedure Growth Status 06/06/24 18:51 Blood Blood Culture - Preliminary NO GROWTH AFTER 24 HOURS OF INCUBATION. Resulted 06/06/24 17:02 Voided Urine Urine Culture - Final Complete Assessment 1. Pancytopenia secondary to rheumatoid arthritis/methotrexate normal iron studies and B12 worsened by infection. May rule out hemolytic anemia 2. Rheumatoid arthritis on methotrexate 6/week and the patient has pancytopenia and sores in the mouth 3. Diabetes mellitus Plan/Recommendation Will check direct Sukhjinder, LDH reticulocyte count For the mouth sores will give her Magic mouthwash Advised her to hold off for methotrexate Neupogen for 3 days Daily CBC Plan discussed with: Patient NABEEL ALVARADO MD Jun 08, 2024 13:19
[2024-06-08] MEDS: MAGIC MOUTHWASH 55 ML SUSP MT SCH (18:25)
[2024-06-09] VITALS (7 sets, daily range): BP systolic 101–148; BP diastolic 59–78; PULSE 79–112; RESP 16–19; TEMP 97.7–99.6; O2SAT 95–100
--- NOTE | 2024-06-09 12:21 | DVHPN2 ---
Reviewed: Care Plan, H&P, Labs, Medications, Previous Orders, Radiology Changes from previous H/P or p: No Changes Objective Vitals Vital Signs Date Time Temp Pulse Resp B/P (MAP) Pulse Ox O2 Delivery O2 Flow Rate FiO2 06/09/24 09:22 98.6 88 17 118/71 (87) 98 98.6 06/08/24 20:00 Room Air* 0 21 Intake/Output Intake and Output 06/09/24 07:00 Intake Total 1050 ml Balance 1050 ml Intake Oral 1000 ml IV Total 50 ml # Voids 6 # Bowel Movements 2 Medications Current Medications Medications Dose Ordered Sig/Rikki Route Start Time Stop Time Status Last Admin Dose Admin Ceftriaxone Sodium 50 ml @ 100 mls/hr DAILY@09 IV 06/07/24 09:00 06/09/24 09:25 100 MLS/HR Diagnostic Test (Pha) 1 strip ACHS 06/06/24 22:00 06/09/24 11:55 1 STRIP Insulin Human Regular ACHS SC 06/06/24 22:00 06/09/24 11:57 3 UNITS Dextrose 50 ml UD PRN IV 06/06/24 20:15 Temazepam 15 mg QHSP PRN PO 06/06/24 20:15 Ondansetron HCl 4 mg Q4HP PRN IV 06/06/24 20:15 Acetaminophen 650 mg Q6HP PRN PO 06/06/24 20:15 Azithromycin 500 mg DAILY PO 06/08/24 10:00 06/09/24 09:21 500 MG Guaifenesin/ Dextromethorphan 15 ml Q8HP PRN PO 06/07/24 15:45 06/07/24 16:06 15 ML Al Hydrox/Mg Hydrox/Simethicone 5 ml QID MT 06/08/24 18:00 06/09/24 06:26 5 ML Laboratory Results Laboratory Tests 06/07/24 03:39 06/07/24 06:07 Urinalysis Test 06/06/24 17:02 Urine Color Yellow (Yellow) Urine Clarity Turbid (Clear) H Urine pH 6.0 (5.0-9.0) Urine Specific [place] 1.018 (1.001-1.035) Urine Protein 1+ (Negative) H Urine Ketones 1+ (Negative) H Urine Blood 1+ /uL (Negative) H Urine Nitrite Negative (Negative) Urine Bilirubin Negative (Negative) Urine Urobilinogen Normal mg/dL (Negative) Urine Leukocyte Esterase 2+ /uL (Negative) Urine RBC 5 /hpf (0 - 4) Urine WBC 74 /hpf (0 - 5) Urine Squamous Epithelial Cells Few /hpf (<5) Urine Bacteria Many /hpf (None Seen) H Urine Mucus Moderate (None Seen) Urine Glucose Normal mg/dL (Normal) Microbiology Microbiology Date/Time Source Procedure Growth Status 06/06/24 18:51 Blood Blood Culture - Preliminary NO GROWTH AFTER 48 HOURS OF INCUBATION. Resulted 06/06/24 17:02 Voided Urine Urine Culture - Final Complete Labs and/or images reviewed: Labs reviewed by me, Image(s) reviewed by me Assessment/Plan Assessment/Plan Sepsis secondary to urinary tract infection: Blood cultures negative, urine cultures mixed Acute urinary tract infection: Continue Rocephin acute metabolic encephalopathy Diabetes: Insulin sliding scale Arthritis Pancytopenia secondary to rheumatoid arthritis/methotrexate May rule out hemolytic anemia Rheumatoid arthritis on methotrexate 6/week and the patient has pancytopenia and sores in the mouth WBC 2.2 platelets 80k hemoglobin 9.[address] Caldera Moderate malnutrition Sores in the mouth: Magic mouthwash Time spent 45 minutes Patient is full code Nutrition boost p.o. 3 times a day Advanced care planning time [address] Anderson Son Castillo: [phone] at bedside Patient lives with her son Plan discussed with: Patient My Orders Orders - RAYMOND SANTIAGO MD Procedure Category Date Status Time Magic Mouthwash PHA 06/08/24 In Process Suspension (Majic 18:00 Date of Service: Jun 09, 2024 Billing Provider: RAYMOND SANTIAGO MD Common Visit Codes: [id number] INP/OBS CARE(HIGH) RAYMOND SANTIAGO MD Jun 09, 2024 12:21
[2024-06-09] MEDS ORDERED: Ensure HIGH Protein Chocolate 8oz Bottle PO SCH (18:00)
[2024-06-09] MEDS: Glucerna Carbsteady SHAKE Vanilla 8oz PO SCH (18:00)
[2024-06-10] VITALS (8 sets, daily range): BP systolic 100–163; BP diastolic 40–54; PULSE 70–89; RESP 16–18; TEMP 97.8–98.6; O2SAT 94–98
--- NOTE | 2024-06-10 12:14 | DVHPN2 ---
Reviewed: Care Plan, H&P, Labs, Medications, Previous Orders, Radiology Changes from previous H/P or p: No Changes Objective Vitals Vital Signs Date Time Temp Pulse Resp B/P (MAP) Pulse Ox O2 Delivery O2 Flow Rate FiO2 06/10/24 09:00 97.9 71 17 133/40 (71) 96 97.9 06/09/24 20:00 Room Air* 0 21 Intake/Output Intake and Output 06/10/24 07:00 Intake Total 1360 ml Output Total 1 ml Balance 1359 ml Intake Oral 1360 ml Output Urine/Stool Mix 1 ml # Voids 7 Medications Current Medications Medications Dose Ordered Sig/Rikki Route Start Time Stop Time Status Last Admin Dose Admin Ceftriaxone Sodium 50 ml @ 100 mls/hr DAILY@09 IV 06/07/24 09:00 06/10/24 10:38 100 MLS/HR Diagnostic Test (Pha) 1 strip ACHS 06/06/24 22:00 06/10/24 06:15 1 STRIP Insulin Human Regular ACHS SC 06/06/24 22:00 06/09/24 17:00 2 UNITS Dextrose 50 ml UD PRN IV 06/06/24 20:15 Temazepam 15 mg QHSP PRN PO 06/06/24 20:15 Ondansetron HCl 4 mg Q4HP PRN IV 06/06/24 20:15 Acetaminophen 650 mg Q6HP PRN PO 06/06/24 20:15 Azithromycin 500 mg DAILY PO 06/08/24 10:00 06/10/24 10:37 500 MG Guaifenesin/ Dextromethorphan 15 ml Q8HP PRN PO 06/07/24 15:45 06/07/24 16:06 15 ML Al Hydrox/Mg Hydrox/Simethicone 5 ml QID MT 06/08/24 18:00 06/09/24 12:00 5 ML Enteral Nutritional Formula 240 ml TIDWM PO 06/09/24 18:00 06/10/24 08:00 240 ML Laboratory Results Laboratory Tests 06/07/24 03:39 06/07/24 06:07 Urinalysis Test 06/06/24 17:02 Urine Color Yellow (Yellow) Urine Clarity Turbid (Clear) H Urine pH 6.0 (5.0-9.0) Urine Specific [place] 1.018 (1.001-1.035) Urine Protein 1+ (Negative) H Urine Ketones 1+ (Negative) H Urine Blood 1+ /uL (Negative) H Urine Nitrite Negative (Negative) Urine Bilirubin Negative (Negative) Urine Urobilinogen Normal mg/dL (Negative) Urine Leukocyte Esterase 2+ /uL (Negative) Urine RBC 5 /hpf (0 - 4) Urine WBC 74 /hpf (0 - 5) Urine Squamous Epithelial Cells Few /hpf (<5) Urine Bacteria Many /hpf (None Seen) H Urine Mucus Moderate (None Seen) Urine Glucose Normal mg/dL (Normal) Microbiology Microbiology Date/Time Source Procedure Growth Status 06/06/24 18:51 Blood Blood Culture - Preliminary NO GROWTH AFTER 72 HOURS OF INCUBATION. Resulted 06/06/24 17:02 Voided Urine Urine Culture - Final Complete Labs and/or images reviewed: Labs reviewed by me, Image(s) reviewed by me Assessment/Plan Assessment/Plan Sepsis secondary to urinary tract infection: Blood cultures negative, urine cultures mixed Acute urinary tract infection: Continue Rocephin acute metabolic encephalopathy Diabetes: Insulin sliding scale Arthritis Pancytopenia secondary to rheumatoid arthritis/methotrexate May rule out hemolytic anemia Rheumatoid arthritis on methotrexate 6/week and the patient has pancytopenia and sores in the mouth WBC 2.2 platelets 80k hemoglobin 9.[address] Caldera Moderate malnutrition Sores in the mouth: Magic mouthwash Time spent 45 minutes Patient is full code Nutrition boost p.o. 3 times a day Advanced care planning time [address] Anderson Son Castillo: [phone] at bedside Patient lives with her son Plan discussed with: Patient My Orders Orders - RAYMOND SANTIAGO MD Procedure Category Date Status Time Nutritional PHA 06/09/24 In Process Supplements (Glucerna 18:00 Complete Blood Count LAB 06/10/24 Logged 12:06 Comprehensive LAB 06/10/24 Logged Metabolic Panel 12:06 Date of Service: Jun 10, 2024 Billing Provider: RAYMOND SANTIAGO MD Common Visit Codes: [id number] INP/OBS CARE(HIGH) RAYMOND SANTIAGO MD Jun 10, 2024 12:14
[2024-06-10 14:14] LABS: Hematocrit 21.7 % (36.0-46.0); Hemoglobin 7.3 g/dL (12.2-16.2); Mean Corpuscular Hemoglobin 30.7 pg (28.0-32.0); Mean Corpuscular Hgb Conc. 33.8 g/dL (32.0-36.0); Platelet Count (auto) 203 10^3/uL (140-450); Red Blood Cells 2.39 10^6/uL (4.0-5.20); Red Cell Distribution Width 19.5 % (11.8-14.3); White Blood Cell 2.5 10^3/uL (4.4-10.8)
[2024-06-10 14:15] LABS: Basophils % (manual) 0 (0.0-2.0); Blast Cells 0; Eosinophils % (manual) 0 (0-7); Myelocytes % 0; Promyelocytes % 0; Reactive Lymphocytes 0
[2024-06-10 14:25] LABS: Alanine Aminotransferase 15 U/L (7-40); Alkaline Phosphatase 80 U/L (46-116); Anion Gap 5 (5-15); Aspartate Aminotransferase 33 U/L (13-40); BUN/Creatinine Ratio 23.2 (10.0-20.0); Blood Urea Nitrogen 16 mg/dL (9-23); Calcium 9.4 mg/dL (8.7-10.4); Carbon Dioxide 29 mmol/L (20-31); Chloride 107 mmol/L (98-107); Sodium 141 mmol/L (136-145)
[2024-06-10 14:28] LABS: Bilirubin, Total 0.2 mg/dL (0.2-1.0); Glucose 130 mg/dL (74-106)
[2024-06-10 14:35] LABS: Band Neutrophils % (manual) 4; Lymphocytes % (manual) 35 (10.0-50.0); Metamyelocytes % 1; Monocytes % (manual) 15 (0-12)
[2024-06-10 14:36] LABS: Platelet Estimate Adequate
[2024-06-11] VITALS (9 sets, daily range): BP systolic 111–134; BP diastolic 50–68; PULSE 84–96; RESP 14–18; TEMP 97.6–98.5; O2SAT 95–99
--- NOTE | 2024-06-11 10:20 | DVHDS2 ---
Discharge Summary Date of Admission Jun 06, 2024 at 20:06 Date of Discharge: Jun 11, 2024 Admitting Diagnosis Generalized weakness Wounds: None Labs/Diagnostic Data: Laboratory Results Test 06/11/24 05:13 06/10/24 13:37 06/06/24 21:46 06/06/24 18:51 POC Glucose 125 mg/dl (70-106) White Blood Count 2.5 10^3/uL (4.4-10.8) Red Blood Count 2.39 10^6/uL (4.0-5.20) Hemoglobin 7.3 g/dL (12.2-16.2) Hematocrit 21.7 % (36.0-46.0) Mean Corpuscular Volume 91.0 fL (80.0-100.0) Mean Corpuscular Hemoglobin 30.7 pg (28.0-32.0) Mean Corpuscular Hemoglobin Concent 33.8 g/dL (32.0-36.0) Red Cell Distribution Width 19.5 % (11.8-14.3) Platelet Count 203 10^3/uL (140-450) Mean Platelet Volume 7.7 fL (6.9-10.8) Neutrophils (%) (Auto) % (37.0-80.0) Lymphocytes (%) (Auto) % (10.0-50.0) Monocytes (%) (Auto) % (0.0-12.0) Basophils (%) (Auto) % (0.0-2.0) Neutrophils # (Auto) 10 ^3/uL (1.6-8.6) Lymphocytes # (Auto) 10 ^3/uL (0.4-5.4) Monocytes # (Auto) 10 ^3/uL (0-1.3) Differential Total Cells Counted 100.0 (100) Neutrophils % (Manual) 45 (37.0-80.0) Band Neutrophils % (Manual) 4 Lymphocytes % (Manual) 35 (10.0-50.0) Monocytes % (Manual) 15 (0-12) Eosinophils % (Manual) 0 (0-7) Basophils % (Manual) 0 (0.0-2.0) Metamyelocytes % (manual) 1 Myelocytes % (Manual) 0 Promyelocytes % (Manual) 0 Blast Cells % (Manual) 0 Reactive Lymphocytes 0 Platelet Estimate Adequate Sodium Level 141 mmol/L (136-145) Potassium Level 4.0 mmol/L (3.5-5.1) Chloride Level 107 mmol/L (98-107) Carbon Dioxide Level 29 mmol/L (20-31) Anion Gap 5 (5-15) Blood Urea Nitrogen 16 mg/dL (9-23) Creatinine 0.69 mg/dL (0.550-1.02) Glomerular Filtration Rate Calc 94 mL/min (>90) BUN/Creatinine Ratio 23.2 (10.0-20.0) Serum Glucose 130 mg/dL (74-106) Calcium Level 9.4 mg/dL (8.7-10.4) Total Bilirubin 0.2 mg/dL (0.2-1.0) Aspartate Amino Transferase (AST) 33 U/L (13-40) Alanine Aminotransferase (ALT) 15 U/L (7-40) Alkaline Phosphatase 80 U/L (46-116) Total Protein 7.0 g/dL (5.7-8.2) Albumin 3.0 g/dL (3.2-4.8) Influenza Type A Antigen Negative (Negative) Influenza Type B Antigen Negative (Negative) SARS-CoV-2 Antigen (Rapid) Negative (NEGATIVE) Lactic Acid Level 1.5 mmol/L (0.4-2.0) Troponin I High Sensitivity 4 ng/L (</=34) Test 06/06/24 17:02 06/06/24 15:28 Urine Color Yellow (Yellow) Urine Clarity Turbid (Clear) Urine pH 6.0 (5.0-9.0) Urine Specific [place] 1.018 (1.001-1.035) Urine Protein 1+ (Negative) Urine Ketones 1+ (Negative) Urine Blood 1+ /uL (Negative) Urine Nitrite Negative (Negative) Urine Bilirubin Negative (Negative) Urine Urobilinogen Normal mg/dL (Negative) Urine Leukocyte Esterase 2+ /uL (Negative) Urine RBC 5 /hpf (0 - 4) Urine WBC 74 /hpf (0 - 5) Urine Squamous Epithelial Cells Few /hpf (<5) Urine Bacteria Many /hpf (None Seen) Urine Mucus Moderate (None Seen) Urine Glucose Normal mg/dL (Normal) Large Platelets Few Other Laboratory Tests 06/10/24 13:37 Brief Hx & Hospital Course: 69-year-old female with a history of diabetes rheumatoid arthritis on methotrexate six tablets a week came in for generalized weakness found to have pancytopenia secondary to to methotrexate. Seen by Hematology Dr. Valverde. WBC 2.2 platelets 80k hemoglobin 9. Advised to stop methotrexate temporarily and the blood count has improved. The patient has sepsis secondary to urinary tract infection started on Rocephin and patient improving blood cultures negative urine cultures were mixed she will continue to receive [facility] She also complained of pain in the mouth because of source secondary to leukopenia: Given magic mouthwash and improved. Discussed with the patient's son Eddied [phone] and he is agreeable for the patient to go to halfway facility to receive IV antibiotics Consults/Reason for consult Hematology Dr. Valverde Operations or Procedures None Condition at Discharge: Fair Final Diagnosis/Problems List Sepsis secondary to urinary tract infection: Blood cultures negative, urine cultures mixed Acute urinary tract infection: Continue Rocephin acute metabolic encephalopathy Diabetes: Insulin sliding scale Arthritis Pancytopenia secondary to rheumatoid arthritis/methotrexate May rule out hemolytic anemia Rheumatoid arthritis on methotrexate 6/week and the patient has pancytopenia and sores in the mouth WBC 2.2 platelets 80k hemoglobin 9.[address] Caldera Moderate malnutrition Sores in the mouth: Magic mouthwash Discharge Disposition: Care Home Facility Discharge Instruct/Medications Diet: Cardiac 2g Na,low cholest Activity: Light activity Follow Up/Referral: [facility] with [facility] jail doctor Medications: Rocephin 1 g IV daily for two weeks for UTI See list for other meds 35 (Time taken for discharge summary 35 minutes) Discharge Statement: "Patient was advised to return to the ER or call 911 if any headaches, dizziness, shortness of breath, chest pain, abdominal pain, bleeding, fevers, or worsening of medical condition. Patient was counseled about treatment plan, medications, possible side effects, patientverbalized understanding. All questions were answered to the best of my ability. This discharge took greater then 30 minutes in planning, reviewing documentation, counseling the patient, and discussing with other team members." ASSESSMENT ASSESSMENT Hospital Course Improved Assessment Sepsis secondary to urinary tract infection: Blood cultures negative, urine cultures mixed Acute urinary tract infection: Continue Rocephin acute metabolic encephalopathy Diabetes: Insulin sliding scale Arthritis Pancytopenia secondary to rheumatoid arthritis/methotrexate May rule out hemolytic anemia Rheumatoid arthritis on methotrexate 6/week and the patient has pancytopenia and sores in the mouth WBC 2.2 platelets 80k hemoglobin 9.[address] Caldera Moderate malnutrition Sores in the mouth: Magic mouthwash Date of Service: Jun 11, 2024 Billing Provider: RAYMOND SANTIAGO MD Common Visit Codes: [id number] DISCH DAY >30min RAYMOND SANTIAGO MD Jun 11, 2024 10:20
[2024-06-12 01:00] VITALS: BP 123/59; PULSE 92; RESP 18; TEMP 97.8; O2SAT 92
[2024-06-12 05:00] VITALS: BP 120/68; PULSE 90; RESP 19; TEMP 98.5; O2SAT 100
[2024-06-12 08:00] VITALS: BP 112/52; PULSE 90; RESP 16; TEMP 98; O2SAT 96
--- NOTE | 2024-06-12 12:33 | DVHPN2 ---
Reviewed: Care Plan, H&P, Labs, Medications, Previous Orders, Radiology Changes from previous H/P or p: No Changes Objective Vitals Vital Signs Date Time Temp Pulse Resp B/P (MAP) Pulse Ox O2 Delivery O2 Flow Rate FiO2 06/12/24 08:00 98.0 90 16 112/52 (72) 96 98.0 06/12/24 08:00 Room Air* 0 21 Intake/Output Intake and Output 06/12/24 07:00 Intake Total 830 ml Balance 830 ml Intake Oral 780 ml IV Total 50 ml # Voids 9 # Bowel Movements 1 Medications Current Medications Medications Dose Ordered Sig/Rikki Route Start Time Stop Time Status Last Admin Dose Admin Ceftriaxone Sodium 50 ml @ 100 mls/hr DAILY@09 IV 06/07/24 09:00 06/12/24 08:54 100 MLS/HR Diagnostic Test (Pha) 1 strip ACHS 06/06/24 22:00 06/12/24 11:30 1 STRIP Insulin Human Regular ACHS SC 06/06/24 22:00 06/12/24 12:31 3 UNITS Dextrose 50 ml UD PRN IV 06/06/24 20:15 Temazepam 15 mg QHSP PRN PO 06/06/24 20:15 Ondansetron HCl 4 mg Q4HP PRN IV 06/06/24 20:15 Acetaminophen 650 mg Q6HP PRN PO 06/06/24 20:15 Azithromycin 500 mg DAILY PO 06/08/24 10:00 06/12/24 08:47 500 MG Guaifenesin/ Dextromethorphan 15 ml Q8HP PRN PO 06/07/24 15:45 06/11/24 12:37 15 ML Al Hydrox/Mg Hydrox/Simethicone 5 ml QID MT 06/08/24 18:00 06/12/24 12:20 5 ML Enteral Nutritional Formula 240 ml TIDWM PO 06/09/24 18:00 06/12/24 12:21 240 ML Laboratory Results Laboratory Tests 06/10/24 13:37 Urinalysis Test 06/06/24 17:02 Urine Color Yellow (Yellow) Urine Clarity Turbid (Clear) H Urine pH 6.0 (5.0-9.0) Urine Specific [place] 1.018 (1.001-1.035) Urine Protein 1+ (Negative) H Urine Ketones 1+ (Negative) H Urine Blood 1+ /uL (Negative) H Urine Nitrite Negative (Negative) Urine Bilirubin Negative (Negative) Urine Urobilinogen Normal mg/dL (Negative) Urine Leukocyte Esterase 2+ /uL (Negative) Urine RBC 5 /hpf (0 - 4) Urine WBC 74 /hpf (0 - 5) Urine Squamous Epithelial Cells Few /hpf (<5) Urine Bacteria Many /hpf (None Seen) H Urine Mucus Moderate (None Seen) Urine Glucose Normal mg/dL (Normal) Microbiology Microbiology Date/Time Source Procedure Growth Status 06/06/24 18:51 Blood Blood Culture - Final NO GROWTH AFTER 5 DAYS OF INCUBATION. Complete 06/06/24 17:02 Voided Urine Urine Culture - Final Complete Labs and/or images reviewed: Labs reviewed by me, Image(s) reviewed by me Assessment/Plan Assessment/Plan Sepsis secondary to urinary tract infection: Blood cultures negative, urine cultures mixed Acute urinary tract infection: Continue Rocephin acute metabolic encephalopathy Diabetes: Insulin sliding scale Arthritis Pancytopenia secondary to rheumatoid arthritis/methotrexate May rule out hemolytic anemia Rheumatoid arthritis on methotrexate 6/week and the patient has pancytopenia and sores in the mouth WBC 2.2 platelets 80k hemoglobin 9.[address] Caldera Moderate malnutrition Sores in the mouth: Magic mouthwash Time spent 45 minutes Patient is full code Nutrition boost p.o. 3 times a day Advanced care planning time [address] Anderson Son Castillo: [phone] at bedside Discharged to custodial facility on 06/11/2024 Awaiting transportation No new complaints Plan discussed with: Patient Date of Service: Jun 12, 2024 Billing Provider: RAYMOND SANTIAGO MD Common Visit Codes: [id number] INP/OBS CARE(HIGH) RAYMOND SANTIAGO MD Jun 12, 2024 12:33
[2024-06-12 12:41] VITALS: BP 101/58; PULSE 91; RESP 14; TEMP 98.1; O2SAT 96
[2024-06-12 16:48] VITALS: BP 111/55; PULSE 85; RESP 14; TEMP 98.7; O2SAT 95
== END 2024-06-12 17:05 | DRG 871 ==
LOC: ER 14:50 → OVERFLOW 20:06 → WEST WING 06-07 09:56
PROVIDERS: ADMIT Nurse Practitioner; ATTEND Family Medicine
PROC: 05HB33Z Insertion of Infusion Device into Right Basilic Vein, Percutaneous Approach (ICD-10-PCS; principal; 2024-06-11)
PROC: B54MZZA Ultrasonography of Right Upper Extremity Veins, Guidance (ICD-10-PCS; 2024-06-11)
DX: A41.9 Sepsis, unspecified organism (principal); G93.41 Metabolic encephalopathy; D61.818 Other pancytopenia; E44.0 Moderate protein-calorie malnutrition; N30.01 Acute cystitis with hematuria; Z68.1 Body mass index [BMI] 19.9 or less, adult; D58.9 Hereditary hemolytic anemia, unspecified; E11.9 Type 2 diabetes mellitus without complications; J20.9 Acute bronchitis, unspecified; M06.9 Rheumatoid arthritis, unspecified; Z83.3 Family history of diabetes mellitus; Z79.631 Long term (current) use of antimetabolite agent; Z82.49 Family history of ischemic heart disease and other diseases of the circulatory system; Z79.84 Long term (current) use of oral hypoglycemic drugs; Z79.899 Other long term (current) drug therapy
CPT/HCPCS: 36415; 71045; 71046; 80048; 80053; 81001; 82962; 83605; 84484; 85007; 85027; 87040; 87086; 87426; 87804; 97163; G0378; J0692; J1815

== ENCOUNTER 2024-11-08 20:40 | Inpatient (IN) | payer MEDICARE, MEDICAID ==
[~2024-11-08] VITALS: Ht 152.4 cm; Wt 82.7 kg
[~2024-11-08 20:40] MED LIST changes: +ALEN70TA74 PO; -AUG875T PO; -CLIN1CAP70 PO; +FOLI-119 PO; +METF500S3 PO; +METH2.5T PO
--- NOTE | 2024-11-08 21:33 | ED.PDOC ---
HPI Comments 69 year old Female presents to the ED with no prior associations related to the c/c of Chest pain. Pt states that she has been experiencing Chest pain for the last few minutes that radiates to the lower back. Pt notes that she has been experiencing Epigastric ABD pain with N/V for the past 2x hours with no alleviating factors at this time. Pt Denies and /D. Pt has a PMHx of DM. Chief Complaint: Abdominal Pain Time Seen by MD: 21:27 Primary Care Provider: KAVIN Reviewed Notes: Nurses Notes, Medications, Allergies Allergies: Coded Allergies: NO KNOWN ALLERGIES (Unverified , 10/13/19) Home Meds Reported Medications Omeprazole (Omeprazole Dr) 20 Mg Cap, 1 CAP PO DAILY for 30 Days, #30 06/07/24 Leflunomide (Arava) 20 Mg Tab, 1 TAB PO DAILY for 30 Days, #30 06/07/24 Alendronate Sodium (Alendronate Sodium) 70 Mg Tab, 70 MG PO Q7D, TAB 06/07/24 Folic Acid (Folic Acid) 1 Mg Tab, 1 MG PO DAILY for 30 Days, MG 06/07/24 Methotrexate (Methotrexate) 2.5 Mg Tab, 8 TAB PO QWEEKLY, #32 TAB 2 Refills 06/07/24 Metformin HCl (Metformin Hydrochloride) 500 Mg/5 Ml Marianne, 500 MG PO, ML 06/07/24 Information Source: Patient Mode of Arrival: Ambulatory Severity: Moderate Timing: Hours Duration: Since onset, Hours Prehospital treatment: None Location: Chest (L) Radiation: Back Quality: Sharp Onset: At Rest Cardiac Risk Factors: Diabetes PE Risk Factors: None History of: None Modifying Factors: Movement Associated Signs and Symptoms: SOB, N/V, Back Pain Past Medical History PAST MEDICAL HISTORY: Arthritis, DM 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 OPERATING 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 History Family History Family History: Family hx of DM Social History Smoker: Non-Smoker Alcohol: Denies ETOH Use Drugs: Denies Drug Use Lives In: Home Constitutional: reports: others (pale); denies: chills, diaphoresis, fatigue, fever, malaise, sweats, weakness EENTM: denies: blurred vision, double vision, ear bleeding, ear discharge, ear drainage, ear pain, ear ringing, eye pain, eye redness, hearing loss, mouth pain, mouth swelling, nasal discharge, nose bleeding, nose congestion, nose pain, photophobia, tearing, throat pain, throat swelling, voice changes, others Respiratory: denies: cough, hemoptysis, orthopnea, SOB at rest, shortness of breath, SOB with excertion, stridor, wheezing, others Cardiovascular: reports: chest pain, diaphoresis; denies: dizzy spells, Dyspnea on exertion, edema, irregular heart beat, left arm pain, lightheadedness, palpitations, PND, syncope, others Gastrointestinal: denies: abdomen distended, abdominal pain, blood streaked bowels, constipated, diarrhea, dysphagia, difficulty swallowing, hematemesis, melena, nausea, poor appetite, poor fluid intake, rectal bleeding, rectal pain, vomiting, others Genitourinary: denies: abnormal vagina bleeding, burning, dyspareunia, dysuria, flank pain, frequency, hematuria, incontinence, pain, , vagina discharge, urgency, others Neurological: denies: dizziness, fainting, headache, left sided numbness, left sided weakness, numbness, paresthesia, pre-existing deficit, right sided numbness, right sided weakness, seizure, speech problems, tingling, tremors, weakness, others Musculoskeletal: reports: back pain; denies: gout, joint pain, joint swelling, muscle pain, muscle stiffness, neck pain, others Integumetry: denies: bruises, change in color, change in hair/nails, dryness, laceration, lesions, lumps, rash, wounds, others Allergic/Immunocompromised: denies: Difficulty Healing, Frequent Infections, Hives, Itching, others Hematologic/Lymphatic: denies: anemia, blood clots, easy bleeding, easy bruising, swollen glands, others Endocrine: denies: excessive hunger, excessive sweating, excessive thirst, excessive urination, flushing, intolerance to cold, intolerance to heat, unexplained weight gain, unexplained weight loss, others Psychiatric: denies: anxiety, bipolar disorder, depression, hopeless, panic disorder, schizophrenia, sleepless, suicidal, others All Other Systems: Reviewed and Negative Physical Exam General Appearance: Moderate Distress HEENT: Normal ENT Inspection, Pharynx Normal, TMs Normal Neck: Full Range of Motion, Non-Tender, Normal, Normal Inspection Respiratory: Chest Non-Tender, Lungs Clear, No Accessory Muscle Use, No Respiratory Distress, Normal Breath Sounds Cardiovascular: Irregular, No Edema, No JVD, No Murmur, No Gallop Breast Exam: Deferred Gastrointestinal: No Organomegaly, Non Tender, No Pulsatile Mass, Normal Bowel Sounds, Soft Genitalia: Deferred Pelvic: Deferred Rectal: Deferred Extremities: No calf tenderness, Normal capillary refill, Normal inspection, Normal range of motion, Non-tender, No pedal edema Musculoskeletal : Apperance: Normal Neurologic: Alert, health 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 Dr. García was called immediately. Code STEMI activated Was a procedure done? Was a procedure done?: No CP Differential Dx Differential Diagnosis: A-fib, A-Flutter, Atrial Dysrhythmia, MAT, CA, PAC's, PSVT, Pulmonary Embolus, Sinus Tachycardia, Ventricular Dysrhythmia, V-Fib, V- Tach, Other X-Ray, Labs, Meds, VS Vital Signs Date Time Temp Pulse Resp B/P (MAP) Pulse Ox O2 Delivery O2 Flow Rate FiO2 11/08/24 22:15 93 11/08/24 22:12 98 17 120/75 11/08/24 22:10 107 11/08/24 21:50 97 11/08/24 21:42 79 24 129/71 11/08/24 21:40 97.6 79 24 124/71 (88) 100 97.6 11/08/24 21:40 124/71 11/08/24 21:40 79 24 100 Nasal Cannula* 2 28 11/08/24 21:19 97 11/08/24 20:51 97.3 92 20 139/95 (110) 99 97.3 Lab Test 11/08/24 22:18 11/08/24 21:44 11/08/24 21:26 Range/Units Troponin I High Sensitivity 1218 *H 429 *H </=34 ng/L Lactic Acid Level 3.6 *H 0.4-2.0 mmol/L White Blood Count 5.1 4.4-10.8 10^3/uL Red Blood Count 4.18 4.0-5.20 10^6/uL Hemoglobin 11.9 L 12.2-16.2 g/dL Hematocrit 34.7 L 36.0-46.0 % Mean Corpuscular Volume 82.9 80.0-100.0 fL Mean Corpuscular Hemoglobin 28.5 28.0-32.0 pg Mean Corpuscular Hemoglobin Concent 34.4 32.0-36.0 g/dL Red Cell Distribution Width 16.2 H 11.8-14.3 % Platelet Count 157 140-450 10^3/uL Mean Platelet Volume 7.4 6.9-10.8 fL Neutrophils (%) (Auto) 78.6 37.0-80.0 % Lymphocytes (%) (Auto) 12.4 10.0-50.0 % Monocytes (%) (Auto) 7.8 0.0-12.0 % Eosinophils (%) (Auto) 0.5 0.0-7.0 % Basophils (%) (Auto) 0.7 0.0-2.0 % Neutrophils # (Auto) 4.0 1.6-8.6 10 ^3/uL Lymphocytes # (Auto) 0.6 0.4-5.4 10 ^3/uL Monocytes # (Auto) 0.4 0-1.3 10 ^3/uL Eosinophils # (Auto) 0 0-0.8 10 ^3/uL Basophils # (Auto) 0 0-0.2 10 ^3/uL Nucleated Red Blood Cells 0.2 % Prothrombin Time 10.1 9.3-11.8 sec Prothrombin Time INR 0.95 0.9-1.15 Activated Partial Thromboplast Time 25.4 24.5-34.5 SEC Sodium Level 121 L 136-145 mmol/L Potassium Level 3.9 3.5-5.1 mmol/L Chloride Level 91 L 98-107 mmol/L Carbon Dioxide Level 17 L 20-31 mmol/L Anion Gap 13 5-15 Blood Urea Nitrogen 12 9-23 mg/dL Creatinine 0.75 0.550-1.02 mg/dL Glomerular Filtration Rate Calc 87 >90 mL/min BUN/Creatinine Ratio 16.0 10.0-20.0 Serum Glucose 228 H 74-106 mg/dL Calcium Level 9.3 8.7-10.4 mg/dL Total Bilirubin 1.0 0.2-1.0 mg/dL Aspartate Amino Transferase (AST) 37 13-40 U/L Alanine Aminotransferase (ALT) 24 7-40 U/L Alkaline Phosphatase 90 46-116 U/L Total Protein 8.6 H 5.7-8.2 g/dL Albumin 4.4 3.2-4.8 g/dL Lipase 50 12-53 U/L Current Medications Medications (Trade) Dose Ordered Sig/Rikki Route Start Time Stop Time Status Last Admin Ondansetron HCl (Zofran) 4 mg ONCE ONCE IV 11/08/24 21:30 11/08/24 21:33 DC 11/08/24 21:41 Morphine Sulfate 4 mg ONCE ONCE IV 11/08/24 21:30 11/08/24 21:33 DC 11/08/24 21:42 Aspirin 162 mg ONCE ONCE PO 11/08/24 21:45 11/08/24 21:46 DC 11/08/24 21:42 Nitroglycerin (Ntrostat Sublingual) 0.4 mg ONCE ONCE SL 11/08/24 21:45 11/08/24 21:46 DC 11/08/24 21:40 PATIENT: KATIA MANN ACCT: [id number] UNIT: [id number] : 1955 LOC: ER ROOM / BED: / AGE / SEX: 69 / F ADM STATUS: REG ER SERVICE 29 ORDERING PHYSICIAN: DC MANDEL MD PROCEDURE(s): CXRP - CHEST PORTABLE REASON: chest pain ORDER NUMBER(s): [id number], ACCESSION NUMBER(s): [id number] CHEST RADIOGRAPH Indication: chest pain Technique: Single frontal view of the chest was obtained COMPARISON: XY CHEST XRAY 1 VIEW on DOS: 06/08/24 FINDINGS: Lines and Tubes: None Lungs: Clear Pleura: No effusion. No pneumothorax. Cardiomediastinal contours: Unremarkable IMPRESSION: No acute disease. Time of 1ST Reevaluation: 21:58 Reevaluation 1ST: Unchanged Patient Education/Counseling: Diagnosis, Treatment Family Education/Counseling: No Family Present Departure 1 Departure Time of Disposition: 21:45 Impression: Primary Impression: Acute ST elevation myocardial infarction (STEMI) involving left anterior descending (LAD) coronary artery Disposition: 09 ADMITTED INPATIENT Admit to: ICU Condition: Critical Discharged With: Self Comments STEMI - Acute Anterior/Lateral CA Subjective : 69-year-old female with PMH of type 2 diabetes presents to ED with acute onset of epigastric and chest pain radiating to mid-back for the past 3 days, significantly worsening over the last 2 hours. Associated symptoms include nausea. EKG demonstrates significant ST elevation in V2-V6, consistent with anterior/lateral STEMI due to LAD lesion. Objective: General: Patient appears very uncomfortable Cardiovascular: EKG showing ST elevation in V2-V6 Lungs: Clear to auscultation bilaterally Psych: Alert and oriented x3 Skin: Warm and dry Neuro: Grossly intact Billing: Primary Diagnosis: I21.09 - ST elevation (STEMI) myocardial infarction involving other coronary artery of anterior wall Secondary Diagnoses: E11.9 - Type 2 diabetes mellitus without complications R11.0 - Nausea Assessment: 69-year-old female with T2DM presenting with acute chest pain and epigastric pain, found to have anterior/lateral STEMI with ST elevations in V2-V6, consistent with LAD lesion requiring immediate cardiac catheterization. Plan: #Acute STEMI Code STEMI activated Cardiology consultation with Dr. García Emergency cardiac catheterization Administered morphine, aspirin, and nitroglycerin #Diabetes Type 2 Will be managed by cardiology during admission Patient Instructions: You have been diagnosed with a heart attack caused by a blocked heart artery. This is a serious condition that requires immediate treatment. We have given you medications to help with your pain and to start treating the heart attack. You will be taken to the cardiac catheterization lab where Dr. García will perform a procedure to open the blocked artery. Your diabetes will be monitored during your hospital stay. Please report any new or worsening chest pain, shortness of breath, or other concerning symptoms to your medical team immediately. Critical Care Note Critical Care Time?: Yes (35 min-critical care time only) Critical care comment: Total critical care time: Approximately 36 minutes Due to a high probability of clinically significant, life threatening deterioration, the patient required my highest level of preparedness to intervene emergently and I personally spent this critical care time directly and personally managing the patient. This critical care time included obtaining a history; examining the patient; pulse oximetry; ordering and review of studies; arranging urgent treatment with development of a management plan; evaluation of patient's response to treatment; frequent reassessment; and, discussions with other providers. This critical care time was performed to assess and manage the high probability of imminent, life-threatening deterioration that could result in multi-organ failure. It was exclusive of separately billable procedures and treating other patients. Stability Stability form required: No Heart Score Heart Score: Heart Score Response (Comments) Value History Highly Suspicious [address]-Deviation 2 Age >65 2 Risk Factors 1 or 2 risk factors 1 Troponin >3 x's Normal limit 2 Total 9 I personally scribed for DC MANDEL MD ([email or web address]) on 11/08/24 at 21:33. Electronically submitted by Rajiv Farr ([email or web address]). I personally scribed for DC MANDEL MD ([email or web address]) on 11/08/24 at 22:29. Electronically submitted by Rajiv Farr ([email or web address]). DC MANDEL MD November 08, 2024 21:33
[2024-11-08 21:40] VITALS: PULSE 79; RESP 24; O2SAT 100
[2024-11-08] MEDS: NITROGLYCERIN 0.4 MG SL TAB SL ONE (21:40)
[2024-11-08] MEDS: ONDANSETRON HCL 4 MG/2 ML VIAL IV ONE (21:41)
[2024-11-08] MEDS: ASPirin 81 mg TAB PO ONE (21:42)
[2024-11-08] MEDS: MORPHINE SULFATE 4 MG/ML SYR/VIAL IV ONE (21:42)
[2024-11-08 21:45] LABS: Basophils # (auto) 0 10 ^3/uL (0-0.2); Basophils % (auto) 0.7 % (0.0-2.0); Eosinophils # (auto) 0 10 ^3/uL (0-0.8); Eosinophils % (auto) 0.5 % (0.0-7.0); Hematocrit 34.7 % (36.0-46.0); Hemoglobin 11.9 g/dL (12.2-16.2); Lymphocytes # (auto) 0.6 10 ^3/uL (0.4-5.4); Lymphocytes % (auto) 12.4 % (10.0-50.0); Mean Corpuscular Hemoglobin 28.5 pg (28.0-32.0); Mean Corpuscular Hgb Conc. 34.4 g/dL (32.0-36.0); Mean Corpuscular Volume 82.9 fL (80.0-100.0); Monocytes # (auto) 0.4 10 ^3/uL (0-1.3); Monocytes % (auto) 7.8 % (0.0-12.0); Neutrophils % (auto) 78.6 % (37.0-80.0); Nucleated Red Blood Cells % 0.2 %; Platelet Count (auto) 157 10^3/uL (140-450); Red Blood Cells 4.18 10^6/uL (4.0-5.20); Red Cell Distribution Width 16.2 % (11.8-14.3); White Blood Cell 5.1 10^3/uL (4.4-10.8)
--- NOTE | 2024-11-08 21:56 | DVH ---
CHEST RADIOGRAPH Indication: chest pain Technique: Single frontal view of the chest was obtained COMPARISON: XY CHEST XRAY 1 VIEW on DOS: 06/08/24 FINDINGS: Lines and Tubes: None Lungs: Clear Pleura: No effusion. No pneumothorax. Cardiomediastinal contours: Unremarkable IMPRESSION: No acute disease.
[2024-11-08 22:00] LABS: Alanine Aminotransferase 24 U/L (7-40); Albumin 4.4 g/dL (3.2-4.8); Alkaline Phosphatase 90 U/L (46-116); Anion Gap 13 (5-15); Aspartate Aminotransferase 37 U/L (13-40); Blood Urea Nitrogen 12 mg/dL (9-23); Calcium 9.3 mg/dL (8.7-10.4); Lipase 50 U/L (12-53); Potassium 3.9 mmol/L (3.5-5.1)
[2024-11-08 22:05] LABS: INR 0.95 (0.9-1.15); Partial Thromboplastin Time 25.4 SEC (24.5-34.5); Prothrombin Time 10.1 sec (9.3-11.8)
[2024-11-08 22:06] LABS: Carbon Dioxide 17 mmol/L (20-31); Chloride 91 mmol/L (98-107); Glucose 228 mg/dL (74-106); Sodium 121 mmol/L (136-145); Total Protein 8.6 g/dL (5.7-8.2)
[2024-11-08] MEDS: ANGIOMAX 250 MG VIAL IV ONE (22:12)
[2024-11-08] MEDS: HEPARIN SODIUM (PORCINE) 5000 UNITS/ML 1ML VIAL ONE (22:12)
[2024-11-08] MEDS: MIDAZOLAM HCL 2MG/2ML 2ml VIAL (1mg/ml) ONE (22:13)
[2024-11-08] MEDS: SODIUM CHL 0.9% 50 ML ONE (22:13)
[2024-11-08] MEDS: HEPARIN IN NS 1000Units/500mL 1,500 ML ONE (22:13)
[2024-11-08] MEDS: IODIXANOL 320MG/ML 100ML BTL IV ONE (22:13)
[2024-11-08] MEDS: fentaNYL CITRATE 100 MCG/2 ML VL ONE (22:13)
[2024-11-08] MEDS: VERAPAMIL 2.5MG/ML INJ 2ML VIAL IV ONE (22:13)
[2024-11-08] MEDS: LIDOCAINE 2%HCL (LOCAL ANESTH.) INJ 20ML MDV ONE (22:13)
[2024-11-08 22:59] LABS: Lactic Acid w/Reflex 3.6 mmol/L (0.4-2.0)
--- NOTE | 2024-11-08 23:03 | DVHINCON2 ---
Date Seen: November 08, [address] Michaels Reason for Consultation Chest pain History of Present Illness HPI Comments 61-year-old lady admitted with substernal chest pain. She states that it developed around 3:00 a.m. this afternoon has been progressively getting worse. It is intermittent on and off and she has experienced epigastric pain and has had vomiting. She states she has had blood-tinged emesis. She continues to have abdominal pain. She has had no previous history of coronary artery disease. Past Medical History Past medical history significant for diabetes and hypertension. History of urosepsis in the past. If you have gastric reflux osteoporosis. She is a diabetic. History of osteoarthritis. Past Surgical History She has a history of hip surgery and knee surgery. Family History: Diabetes mellitus G8 FATHER, Onset:30's - 40 Hypertension G8 MOTHER Allergies: Coded Allergies: NO KNOWN ALLERGIES (Unverified , 10/13/19) Home Meds Reported Medications Omeprazole (Omeprazole Dr) 20 Mg Cap, 1 CAP PO DAILY for 30 Days, #30 06/07/24 Leflunomide (Arava) 20 Mg Tab, 1 TAB PO DAILY for 30 Days, #30 06/07/24 Alendronate Sodium (Alendronate Sodium) 70 Mg Tab, 70 MG PO Q7D, TAB 06/07/24 Folic Acid (Folic Acid) 1 Mg Tab, 1 MG PO DAILY for 30 Days, MG 06/07/24 Methotrexate (Methotrexate) 2.5 Mg Tab, 8 TAB PO QWEEKLY, #32 TAB 2 Refills 06/07/24 Metformin HCl (Metformin Hydrochloride) 500 Mg/5 Ml Marianne, 500 MG PO, ML 06/07/24 Review of Systems No constitutional symptoms of fevers chills, but she does refer to significant weight loss over the last several months. This was also discussed with her son. She refers to general weakness. She was diaphoretic today. EENTM: denies: blurred vision, double vision, ear bleeding, ear discharge, ear drainage, ear pain, ear ringing, eye pain, eye redness, hearing loss, mouth pain, mouth swelling, nasal discharge, nose bleeding, nose congestion, nose pain, photophobia, tearing, throat pain, throat swelling, voice changes, others Respiratory: denies: cough, hemoptysis, orthopnea, SOB at rest, shortness of breath, SOB with excertion, stridor, wheezing, others Cardiovascular: reports: chest pain, diaphoresis; denies: dizzy spells, Dyspnea on exertion, edema, irregular heart beat, left arm pain, lightheadedness, p alpitations, PND, syncope, others Gastrointestinal: denies: abdomen distended, abdominal pain, blood streaked bowels, constipated, diarrhea, dysphagia, difficulty swallowing, hematemesis, melena, nausea, poor appetite, poor fluid intake, rectal bleeding, rectal pain, vomiting, others Genitourinary: denies: abnormal vagina bleeding, burning, dyspareunia, dysuria, flank pain, frequency, hematuria, incontinence, pain, , vagina discharge, urgency, others recent urinary tract infections. Neurological: denies: dizziness, fainting, headache, left sided numbness, left sided weakness, numbness, paresthesia, pre-existing deficit, right sided numbness, right sided weakness, seizure, speech problems, tingling, tremors, weakness, others Musculoskeletal: reports: back pain; denies: gout, joint pain, joint swelling, muscle pain, muscle stiffness, neck pain, others history of significant arthritis. Integumetry: denies: bruises, change in color, change in hair/nails, dryness, laceration, lesions, lumps, rash, wounds, others history of previous skin infections. Allergic/Immunocompromised: denies: Difficulty Healing, Frequent Infections, Hives, Itching, others Hematologic/Lymphatic: denies: anemia, blood clots, easy bleeding, easy bruising, swollen glands, others Endocrine: denies: excessive hunger, excessive sweating, excessive thirst, excessive urination, flushing, intolerance to cold, intolerance to heat, unexplained weight gain, unexplained weight loss, others Psychiatric: denies: anxiety, bipolar disorder, depression, hopeless, panic disorder, schizophrenia, sleepless, suicidal, others All Other Systems: Reviewed and Negative Vital Signs Vital Signs Date Time Temp Pulse Resp B/P (MAP) Pulse Ox O2 Delivery O2 Flow Rate FiO2 11/08/24 22:15 93 11/08/24 22:12 17 120/75 11/08/24 21:40 97.6 100 97.6 11/08/24 21:40 Nasal Cannula* 2 28 Physical Exam She is awake alert and oriented. She is in moderate distress. She is crying. She is upset. Vital signs are as noted. HEENT examination is otherwise unremarkable. She has bitemporal wasting and enophthalmos. Poorly hydrated. No jugular distention no bruits. Clear lung bailey bilaterally. Heart exam reveals a regular S1-S2 soft S4. Abdominal examination is unremarkable. Extremities show adequate perfusion however she does appear to have muscle wasting. Decreased muscle tone. Neurologically she appears to be intact however she has proprioception abnormalities in her lower extremities and feet. Neurologically nonfocal. Labs/Diagnostic Data Labs Test 11/08/24 22:18 11/08/24 21:44 11/08/24 21:26 Range/Units White Blood Count 5.1 4.4-10.8 10^3/uL Red Blood Count 4.18 4.0-5.20 10^6/uL Hemoglobin 11.9 L 12.2-16.2 g/dL Hematocrit 34.7 L 36.0-46.0 % Mean Corpuscular Volume 82.9 80.0-100.0 fL Mean Corpuscular Hemoglobin 28.5 28.0-32.0 pg Mean Corpuscular Hemoglobin Concent 34.4 32.0-36.0 g/dL Red Cell Distribution Width 16.2 H 11.8-14.3 % Platelet Count 157 140-450 10^3/uL Mean Platelet Volume 7.4 6.9-10.8 fL Neutrophils (%) (Auto) 78.6 37.0-80.0 % Lymphocytes (%) (Auto) 12.4 10.0-50.0 % Monocytes (%) (Auto) 7.8 0.0-12.0 % Eosinophils (%) (Auto) 0.5 0.0-7.0 % Basophils (%) (Auto) 0.7 0.0-2.0 % Neutrophils # (Auto) 4.0 1.6-8.6 10 ^3/uL Lymphocytes # (Auto) 0.6 0.4-5.4 10 ^3/uL Monocytes # (Auto) 0.4 0-1.3 10 ^3/uL Eosinophils # (Auto) 0 0-0.8 10 ^3/uL Basophils # (Auto) 0 0-0.2 10 ^3/uL Nucleated Red Blood Cells 0.2 % Prothrombin Time 10.1 9.3-11.8 sec Prothrombin Time INR 0.95 0.9-1.15 Activated Partial Thromboplast Time 25.4 24.5-34.5 SEC Sodium Level 121 L 136-145 mmol/L Potassium Level 3.9 3.5-5.1 mmol/L Chloride Level 91 L 98-107 mmol/L Carbon Dioxide Level 17 L 20-31 mmol/L Anion Gap 13 5-15 Blood Urea Nitrogen 12 9-23 mg/dL Creatinine 0.75 0.550-1.02 mg/dL Glomerular Filtration Rate Calc 87 >90 mL/min BUN/Creatinine Ratio 16.0 10.0-20.0 Serum Glucose 228 H 74-106 mg/dL Calcium Level 9.3 8.7-10.4 mg/dL Total Bilirubin 1.0 0.2-1.0 mg/dL Aspartate Amino Transferase (AST) 37 13-40 U/L Alanine Aminotransferase (ALT) 24 7-40 U/L Alkaline Phosphatase 90 46-116 U/L Total Protein 8.6 H 5.7-8.2 g/dL Albumin 4.4 3.2-4.8 g/dL Lipase 50 12-53 U/L Assessment Patient will ST segment elevations throughout the inferior and lateral leads suggestive with multivessel disease. Diabetes mellitus. Hypertension. Arthritis. Plan/Recommendation Patient will undergo cardiac catheterization on an urgent basis. Plan discussed with: Patient, Son NYHA Physical activity limitations: Class2(Slight)fatigue,sob Date of Service: November 08, 2024 Billing Provider: MONICA LACKEY Sr., MD Cardiology Common Codes: 87197-WGTJRMG INP/OBS CARE (High) Cardiology Procedure Codes: 99322-RYVL HEART CATH W/INTRA INJ MONICA LACKEY Sr., MD November 08, 2024 23:03
--- NOTE | 2024-11-08 23:07 | DVHOP2 ---
Operative Report - 2 Report Details Date: 11/08/24 Preop Diagnosis: Acute ST-elevation myocardial infarction Postop Diagnosis: Takotsubo syndrome Surgeon: Monica García MD Anesthesiologist: Conscious sedation Anesthesia: Mac, Local Consent: The patient was informed of the risks and benefits of the procedure. These include but are not limited to complications of anesthesia, postoperative infection, incomplete relief of symptoms, recurrence of symptoms, damage to blood vessels, nerves and tendons, deep venous thrombosis, pulmonary embolism and possible need for repeat surgery in the future. Complications: No complications Findings: Normal coronary arteries. Cardiomyopathy. Indications for Surgery: Chest pain. ST elevations Name of Procedure Performed Left heart catheterization, bilateral cine coronary angiography. Left ventriculography. Procedure Details Procedure Details: Prior local anesthesia with 2% lidocaine to wrist and full informed consent obtained under fluoroscopic and ultrasound guidance we were able to obtain access into the radial artery which was rather small. A six Chinese slender sheath was placed. A 3-0 EBU guiding catheter was used to perform angiographic evaluation of both right and left coronary ostia and ventriculography without complications. Hemodynamics: Aortic blood pressure was 110/70. End-diastolic pressure was 15 without gradient across the aortic valve on pullback. Coronary anatomy RCA is a large vessel it is normal in its proximal mid and distal segments. PDA and posterolateral branches were normal. Left main is large and normal. Left anterior descending is a large vessel it is normal in its proximal mid and distal segments. Diagonals are free of significant disease. Circumflex is a large vessel it is normal in its proximal mid and distal subtotal two obtuse marginals free of significant disease. Ventriculography in the FITCH projection shows an EF of 25% with ballooning and dilatation of the left ventricle consistent with takotsubo syndrome. Impression takotsubo syndrome with normal coronaries. Elevated left ventricular end-diastolic pressures. Decreased left ventricular ejection fraction. Recommendations: Supportive measures continue medical management and risk factor modification. Condition Guarded Disposition Still a Patient Date of Service: November 08, 2024 Billing Provider: MONICA GARCÍA Sr., MD Cardiology Common Codes: 69856-LSKNUHY INP/OBS CARE (High) Cardiology Procedure Codes: 57478-IGYW HEART CATH W/INTRA INJ MONICA GARCÍA Sr., MD November 08, 2024 23:07
[2024-11-08 23:10] VITALS: BP 92/47; PULSE 79; RESP 10; TEMP 97.7; O2SAT 97
[2024-11-08] MEDS ORDERED: NITROGLYCERIN 0.4 MG SL TAB SL PRN (23:15)
[2024-11-08] MEDS ORDERED: MORPHINE SULFATE INJ 2 MG/ml SYRG IV PRN (23:15)
[2024-11-08 23:25] VITALS: BP 90/52; PULSE 77; RESP 10; O2SAT 99
[2024-11-08 23:40] VITALS: BP 92/53; PULSE 71; RESP 12; O2SAT 99
[2024-11-08 23:55] VITALS: BP 90/54; PULSE 71; RESP 12; O2SAT 99
[2024-11-09] VITALS (10 sets, daily range): BP systolic 83–120; BP diastolic 47–64; PULSE 76–110; RESP 14–20; TEMP 97–98.2; O2SAT 96–100
[2024-11-09] MEDS ORDERED: DEXTROSE (50%) 50ML SYRG IV PRN (01:00)
[2024-11-09] MEDS ORDERED: ACETAMINOPHEN 325 MG TAB PO PRN (01:00)
[2024-11-09] MEDS ORDERED: HYDROcodone-ACET 5/325MG TAB PO PRN (01:00)
[2024-11-09 03:41] LABS: Anion Gap 10 (5-15); BUN/Creatinine Ratio 15.9 (10.0-20.0); Blood Urea Nitrogen 10 mg/dL (9-23); Calcium 7.9 mg/dL (8.7-10.4); Carbon Dioxide 19 mmol/L (20-31); Chloride 95 mmol/L (98-107); Glucose 205 mg/dL (74-106); Potassium 3.4 mmol/L (3.5-5.1); Sodium 124 mmol/L (136-145)
[2024-11-09 04:04] LABS: Urine Bacteria None Seen /hpf (None Seen)
[2024-11-09 04:26] LABS: Urine Blood Negative /uL (Negative); Urine Clarity Clear (Clear); Urine Color Light-Yellow (Yellow); Urine Protein, UAD TRACE (Negative); Urine Specific Gravity 1.044 (1.001-1.035); Urine Squamous Epithelial Cell FEW /hpf (<5); Urine Urobilinogen Normal (Negative); Urine WBC 12 /HPF (0-5)
--- NOTE | 2024-11-09 05:26 | ECG ---
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
[2024-11-09] MEDS: InsuLIN REG 1unit/0.01ml Soln (100units/ml) SC SCH (06:32)
[2024-11-09] MEDS: ACCU-CHEK COMFORT CURVE STRIP VI SCH (06:32)
--- NOTE | 2024-11-09 06:55 | ECG ---
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
--- NOTE | 2024-11-09 07:10 | ECG ---
[facility] Test Date: 2024-11-09 Test Time: 07:08:18 Pat Name: KATIA MANN Department: Room: 0290T B Gender: F Patient Relations Liaison: [id number] : [id number] Requested By: CD MANDEL Order Number: [id number] Reading MD: Josafat García Measurements Intervals [place] Rate: 77 P: 70 FL: 179 QRS: 46 QRSD: 62 T: 89 QT: 419 QTc: 475 Interpretive Statements Sinus rhythm Anteroseptal infarct, acute (LAD) Minimal ST elevation, inferior leads Lateral leads are also involved Electronically Signed On 11-13-2024 10:41:00 PDT by Josafat García Please click the below link to view image of tracing.
[2024-11-09] MEDS: SACUBITRIL-VALSARTAN 24mg/26mg TAB PO SCH (10:00)
[2024-11-09] MEDS: EMPAGLIFLOZIN 10 MG TAB PO SCH (11:01)
[2024-11-09] MEDS: SPIRONOLACTONE 25 MG TAB PO SCH (11:03)
[2024-11-09 11:52] LABS: Triglycerides 80 mg/dL (< 150)
[2024-11-09 11:54] LABS: Cholesterol 163 mg/dL (< 200); HDL Cholesterol 45 mg/dL (40-59); LDL Cholesterol 115 mg/dL (< 100)
[2024-11-09] MEDS: OPTISON 3ml Vial for INJ IV ONE (12:01)
[2024-11-09] MEDS: ONDANSETRON HCL 4 MG/2 ML VIAL IV PRN (12:05)
--- NOTE | 2024-11-09 14:08 | DVHSR ---
APPROVED REPORT EXAM: Two-dimensional and M-mode echocardiogram with Doppler, color Doppler and Optison. Blood Pressure: 97/63 mmHg INDICATION NH Contrast Details Indication: Endocardial border delineation Amount Used: 2ML RISK FACTORS Height: 97, Weight: 63 DIMENSIONS LVDd2.8 (3.8-5.7cm)LA (2D)2.8 (1.9-4.0cm)Aortic Root3.0 (2.0-3.7cm) LVDs1.9 (2.5-4.0cm)LA (MM) (1.9-4.0cm)Aortic Cusp Exc (1.5-2.0cm) EF (%) 45.0 (55-70%)Rt. Atrium1.9 (1.9-4.0cm)Asc. Aorta cm IVSd0.8 (0.7-1.1cm)RV (D)1.9 (1.8-2.4cm) PWd1.1 (0.7-1.1cm) Mitral Valve MitralMitral Stenosis E wave0.83m/sMV Mean GR.mmHg A wave0.77m/sMV Peak GR.20mmHg E/A ratio1.12D MVAcm2 DECEL [id number] 1/2 Timems Aortic Valve Aortic ValveAortic Stenosis V10.76m/Thien Mean GR.mmHg V20.92m/Thien Peak GR.3mmHg LVOT Diameter1.6 (1.8-2.4cm)Doppler AVA1.66cm2 Other Information Quality : Technically LimitedRhythm : Technically limited study due to patient position.body habitus. Conclusion severe global LV dysfunction lvef 20-25% by visual estimate optison used for enhanced lv opacifciation akinetic apex that is dilated low normal basal wall movement low normal rv function mild left atrium enlarged
--- NOTE | 2024-11-09 16:12 | DVHPN2 ---
Consult Progress Note Subjective Other Systems: Patient denies any cardiac symptoms at time of assessment. 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 Vital Sign Date Time Temp Pulse Resp B/P (MAP) Pulse Ox O2 Delivery O2 Flow Rate FiO2 11/09/24 13:00 98.0 78 18 120/47 (71) 96 98.0 11/09/24 00:20 Nasal Cannula* 2 28 Total Intake and Output 11/08/24 11/08/24 11/09/24 15:00 23:00 07:00 Intake Total 0 ml Balance 0 ml medications Current Medications Medications Dose Ordered Sig/Rikki Route Start Time Stop Time Status Last Admin Dose Admin Nitroglycerin 0.4 mg Q5MINP PRN SL 11/08/24 23:15 Morphine Sulfate 2 mg Q30M PRN IV 11/08/24 23:15 Diagnostic Test (Pha) 1 strip ACHS 11/09/24 07:00 11/09/24 12:01 1 STRIP Insulin Human Regular ACHS SC 11/09/24 07:00 11/09/24 06:32 2 UNITS Dextrose 50 ml UD PRN IV 11/09/24 01:00 Patient Own Medication 20 mg DAILY PO 11/09/24 10:00 Acetaminophen/ Hydrocodone Bitart 1 tab Q4HP PRN PO 11/09/24 01:00 Ondansetron HCl 4 mg Q4HP PRN IV 11/09/24 01:00 11/09/24 12:05 4 MG Acetaminophen 650 mg Q6HP PRN PO 11/09/24 01:00 Sacubitril/ Valsartan 0.5 tab BID PO 11/09/24 10:00 Empaglifozin 10 mg DAILY PO 11/09/24 10:00 11/09/24 11:01 10 MG Spironolactone 25 mg DAILY PO 11/09/24 10:00 11/09/24 11:03 25 MG Metoprolol Succinate 25 mg DAILY PO 11/10/24 10:00 Examination: GENERAL:Normal, LUNGS:Normal, CVS:Normal, NEURO:Normal laboratory and microbiology Laboratory Tests 11/09/24 05:20 11/08/24 23:50 11/08/24 21:26 Test 11/08/24 23:50 Range/Units Serum Glucose 205 H 74-106 mg/dL Problem List/Assessment/Plan Problem List/Assessment/Plan Takotsubo's syndrome MIGUEL Acute on chronic HFrEF, NYHA class III, newly diagnosed Type 2 diabetes mellitus Rheumatoid arthritis Plan/recommendations (Dr. García): The patient who came in with ST-elevation myocardial infarction was emergently taken to the custodial laborer in which she underwent a coronary angiogram with left heart catheterization which revealed normal coronaries and Takotsubo's syndrome. Transthoracic echocardiogram reveals EF of 20-25%. We will initiate the patient on guideline directed medical therapy for CHF as tolerated by blood pressures. Strict intake and output, daily weights, maintain fluid restriction. Social service consult for [employer]. The patient has been scheduled to follow up with [facility] in the outpatient setting on 12/01/24. There is no further inpatient cardiac workup indicated at this time. Thank you for allowing us to care for this patient. Please call with any questions or concerns. This medical document was created using an electronic medical record system with voice recognition software and computerized dictation system. Although this document has been carefully reviewed, there might still be some phonetic and typographical errors. Occasional wrong-word or ``sound-alike substitutions may have occurred due to the inherent limitations of voice recognition software. These areas are purely typographical due to imperfections of the software programs and do not reflect any compromise in the patient's medical care. Please read the chart carefully and recognize, using context, where these substitutions have occurred. Plan discussed with: Patient Date of Service: November 09, 2024 Billing Provider: MAGGIE RESENDIZ Common Visit Codes: [id number] INP/OBS CARE(HIGH) MAGGIE RESENDIZ November 09, 2024 16:12
--- NOTE | 2024-11-09 16:28 | DVHHP2 ---
Review of Systems Allergies: Coded Allergies: NO KNOWN ALLERGIES (Unverified , 10/13/19) Medications Current Medications Medications Dose Ordered Sig/Rikki Route Start Time Stop Time Status Last Admin Dose Admin Nitroglycerin 0.4 mg Q5MINP PRN SL 11/08/24 23:15 Morphine Sulfate 2 mg Q30M PRN IV 11/08/24 23:15 Diagnostic Test (Pha) 1 strip ACHS 11/09/24 07:00 11/09/24 12:01 1 STRIP Insulin Human Regular ACHS SC 11/09/24 07:00 11/09/24 06:32 2 UNITS Dextrose 50 ml UD PRN IV 11/09/24 01:00 Patient Own Medication 20 mg DAILY PO 11/09/24 10:00 Acetaminophen/ Hydrocodone Bitart 1 tab Q4HP PRN PO 11/09/24 01:00 Ondansetron HCl 4 mg Q4HP PRN IV 11/09/24 01:00 11/09/24 12:05 4 MG Acetaminophen 650 mg Q6HP PRN PO 11/09/24 01:00 Sacubitril/ Valsartan 0.5 tab BID PO 11/09/24 10:00 Empaglifozin 10 mg DAILY PO 11/09/24 10:00 11/09/24 11:01 10 MG Spironolactone 25 mg DAILY PO 11/09/24 10:00 11/09/24 11:03 25 MG Metoprolol Succinate 25 mg DAILY PO 11/10/24 10:00 Exam Vital Signs Vital Signs Date Time Temp Pulse Resp B/P (MAP) Pulse Ox O2 Delivery O2 Flow Rate FiO2 11/09/24 13:00 98.0 78 18 120/47 (71) 96 98.0 11/09/24 00:20 Nasal Cannula* 2 28 Labs/Xrays Labs Test 11/09/24 12:09 11/09/24 05:20 11/09/24 03:30 11/08/24 23:50 Range/Units POC Glucose 136 H 70-106 mg/dl Creatinine 0.68 0.550-1.02 mg/dL Glomerular Filtration Rate Calc 95 >90 mL/min Troponin I High Sensitivity 4542 *H </=34 ng/L B-Type Natriuretic Peptide 482.38 0-100 pg/mL Urine Color Light-yellow Yellow Urine Clarity Clear Clear Urine pH 7.0 5.0-9.0 Urine Specific [place] 1.044 H 1.001-1.035 Urine Protein Trace H Negative Urine Ketones 2+ H Negative Urine Blood Negative Negative /uL Urine Nitrite Negative Negative Urine Bilirubin Negative Negative Urine Urobilinogen Normal Negative mg/dL Urine Leukocyte Esterase Negative Negative /uL Urine RBC 4 0 - 4 /hpf Urine Microscopic WBC 12 H 0-5 /HPF Urine Squamous Epithelial Cells Few <5 /hpf Urine Bacteria None seen None Seen /hpf Urine Glucose Normal Normal mg/dL Sodium Level 124 L 136-145 mmol/L Potassium Level 3.4 L 3.5-5.1 mmol/L Chloride Level 95 L 98-107 mmol/L Carbon Dioxide Level 19 L 20-31 mmol/L Anion Gap 10 5-15 Blood Urea Nitrogen 10 9-23 mg/dL BUN/Creatinine Ratio 15.9 10.0-20.0 Serum Glucose 205 H 74-106 mg/dL Lactic Acid Level 1.7 0.4-2.0 mmol/L Calcium Level 7.9 L 8.7-10.4 mg/dL Triglycerides Level 80 < 150 mg/dL Cholesterol Level 163 < 200 mg/dL LDL Cholesterol 115 H < 100 mg/dL HDL Cholesterol 45 40-59 mg/dL Test 11/08/24 21:26 Range/Units White Blood Count 5.1 4.4-10.8 10^3/uL Red Blood Count 4.18 4.0-5.20 10^6/uL Hemoglobin 11.9 L 12.2-16.2 g/dL Hematocrit 34.7 L 36.0-46.0 % Mean Corpuscular Volume 82.9 80.0-100.0 fL Mean Corpuscular Hemoglobin 28.5 28.0-32.0 pg Mean Corpuscular Hemoglobin Concent 34.4 32.0-36.0 g/dL Red Cell Distribution Width 16.2 H 11.8-14.3 % Platelet Count 157 140-450 10^3/uL Mean Platelet Volume 7.4 6.9-10.8 fL Neutrophils (%) (Auto) 78.6 37.0-80.0 % Lymphocytes (%) (Auto) 12.4 10.0-50.0 % Monocytes (%) (Auto) 7.8 0.0-12.0 % Eosinophils (%) (Auto) 0.5 0.0-7.0 % Basophils (%) (Auto) 0.7 0.0-2.0 % Neutrophils # (Auto) 4.0 1.6-8.6 10 ^3/uL Lymphocytes # (Auto) 0.6 0.4-5.4 10 ^3/uL Monocytes # (Auto) 0.4 0-1.3 10 ^3/uL Eosinophils # (Auto) 0 0-0.8 10 ^3/uL Basophils # (Auto) 0 0-0.2 10 ^3/uL Nucleated Red Blood Cells 0.2 % Prothrombin Time 10.1 9.3-11.8 sec Prothrombin Time INR 0.95 0.9-1.15 Activated Partial Thromboplast Time 25.4 24.5-34.5 SEC Total Bilirubin 1.0 0.2-1.0 mg/dL Aspartate Amino Transferase (AST) 37 13-40 U/L Alanine Aminotransferase (ALT) 24 7-40 U/L Alkaline Phosphatase 90 46-116 U/L Total Protein 8.6 H 5.7-8.2 g/dL Albumin 4.4 3.2-4.8 g/dL Lipase 50 12-53 U/L Assessment/Plan Assessment/Plan see dictated note Plan discussed with: Patient, Daughter My Orders Orders - COOPER SANTIAGO MD Procedure Category Date Status Time Urine Bacterial ASIA 11/09/24 Transmitted Culture 16:16 Ceftriaxone Ivpb PHA 11/10/24 Transmitted Rocephin 09:00 Ceftriaxone Ivpb PHA 11/09/24 Transmitted Rocephin 16:30 Pt Request For Service PT 11/09/24 Transmitted 16:16 Maintain Fluid PATRICK 11/09/24 Transmitted Restrictions 16:16 Complete Blood Count LAB 11/10/24 Verified 06:00 Comprehensive LAB 11/10/24 Verified Metabolic Panel 06:00 Hemoglobin A1c LAB 11/10/24 Verified 06:00 Thyroid Stimulating LAB 11/10/24 Verified Hormone 05:00 Date of Service: November 09, 2024 Billing Provider: COOPER SANTIAGO MD Common Visit Codes: [id number] INP/OBS CARE (HIGH) Secondary Visit Codes: [id number] CARE PLAN 30 MINUTES COOPER SANTIAGO MD November 09, 2024 16:28
[2024-11-09] MEDS: cefTRIAXone 1GM/50ML D5W 50 ML IV ONE (16:30)
--- NOTE | 2024-11-09 16:43 | DVHHP ---
ADMIT DATE: 11/09/2024 HISTORY OF PRESENT ILLNESS: The patient is a 69-year-old lady who is admitted with history of increasing weakness going on for several days, accompanied by pain in the flanks with possible urinary symptoms. The patient also has been having increasing shortness of breath. She denies any chest pain, no dizziness or syncope, no fever, no falls. REVIEW OF SYSTEMS: Review of rest of the systems otherwise currently negative. PAST MEDICAL HISTORY: Significant for urinary tract infection as well as rheumatoid arthritis, diabetes mellitus. MEDICATIONS: Include leflunomide, metformin, omeprazole. ALLERGIES: No known drug allergies. SOCIAL HISTORY: Denies smoking or alcohol. Lives with her son. FAMILY HISTORY: Negative. PHYSICAL EXAMINATION: GENERAL: The patient is awake, alert. VITAL SIGNS: Temperature of 97.9, pulse 96 per minute, blood pressure 120/47. SHEENT: Unremarkable. NECK: There is no JVD. No pedal edema. LUNGS: Equal bilaterally. No added sounds. CARDIOVASCULAR SYSTEM: S1 and S2 regular. No murmurs. ABDOMEN: Soft. There is no organomegaly. NEUROLOGIC: Nonfocal. MUSCULOSKELETAL: Normal. ASSESSMENT AND PLAN: * Acute systolic heart failure with Takotsubo syndrome. The patient is status post coronary angiography. She will be placed on medications as per Cardiology. * Non-STEMI, likely secondary to Takotsubo. * Hyponatremia for which the patient will be placed on fluid restriction. * Rheumatoid arthritis. * Questionable UTI. The patient will have a urine culture sent and placed empirically on IV Rocephin. * Diabetes mellitus for which she will be placed on sliding scale insulin. * Advanced care planning: The patient is a FULL CODE-Time spent is 19 minutes. MD CULLEN Bridges/LORRIE TID: [id number] RECEIPT: [id number] [facility]ITAL[facility]
[2024-11-09 17:34] LABS: Chloride 101 mmol/L (98-107); Potassium 4.4 mmol/L (3.5-5.1)
[2024-11-09 17:35] LABS: Anion Gap 10 (5-15); Carbon Dioxide 24 mmol/L (20-31)
[2024-11-09 17:40] LABS: BUN/Creatinine Ratio 13.2 (10.0-20.0); Blood Urea Nitrogen 15 mg/dL (9-23)
[2024-11-09 17:41] LABS: Magnesium 2.1 mg/dL (1.6-2.6)
[2024-11-09 18:16] LABS: Calcium 10.5 mg/dL (8.7-10.4); Glucose 170 mg/dL (74-106); Sodium 135 mmol/L (136-145)
[2024-11-10] VITALS (9 sets, daily range): BP systolic 85–113; BP diastolic 47–70; PULSE 63–112; RESP 14–18; TEMP 97.6–99.5; O2SAT 94–99
[2024-11-10 07:09] LABS: Alanine Aminotransferase 20 U/L (7-40); Albumin 3.9 g/dL (3.2-4.8); Alkaline Phosphatase 71 U/L (46-116); Anion Gap 9 (5-15); BUN/Creatinine Ratio 15.7 (10.0-20.0); Blood Urea Nitrogen 18 mg/dL (9-23); Calcium 9.3 mg/dL (8.7-10.4); Carbon Dioxide 23 mmol/L (20-31); Chloride 106 mmol/L (98-107); Magnesium 2.2 mg/dL (1.6-2.6); Potassium 4.1 mmol/L (3.5-5.1); Sodium 138 mmol/L (136-145); Total Protein 7.5 g/dL (5.7-8.2)
[2024-11-10 07:10] LABS: Bilirubin, Total 0.4 mg/dL (0.2-1.0)
[2024-11-10 07:15] LABS: Aspartate Aminotransferase 45 U/L (13-40); Glucose 136 mg/dL (74-106)
[2024-11-10 07:25] LABS: Basophils # (auto) 0 10 ^3/uL (0-0.2); Basophils % (auto) 0.7 % (0.0-2.0); Eosinophils # (auto) 0 10 ^3/uL (0-0.8); Eosinophils % (auto) 0.8 % (0.0-7.0); Hematocrit 34.1 % (36.0-46.0); Hemoglobin 11.6 g/dL (12.2-16.2); Lymphocytes # (auto) 0.5 10 ^3/uL (0.4-5.4); Lymphocytes % (auto) 13.7 % (10.0-50.0); Mean Corpuscular Hemoglobin 28.8 pg (28.0-32.0); Mean Corpuscular Volume 84.9 fL (80.0-100.0); Monocytes # (auto) 0.5 10 ^3/uL (0-1.3); Monocytes % (auto) 13.5 % (0.0-12.0); Neutrophils # (auto) 2.6 10 ^3/uL (1.6-8.6); Neutrophils % (auto) 71.3 % (37.0-80.0); Nucleated Red Blood Cells % 0.1 %; Platelet Count (auto) 129 10^3/uL (140-450); Red Blood Cells 4.02 10^6/uL (4.0-5.20); Red Cell Distribution Width 16.6 % (11.8-14.3); White Blood Cell 3.6 10^3/uL (4.4-10.8)
[2024-11-10] MEDS: cefTRIAXone 1GM/50ML D5W 50 ML IV SCH (09:36)
[2024-11-10] MEDS ORDERED: METOPROLOL SUCCINATE XL 50 MG TAB PO SCH (10:00)
--- NOTE | 2024-11-10 13:42 | DVHPN2 ---
Subjective The patient is seen and examined at bedside. No complaint today. Patient is tired. Reviewed: Care Plan, H&P, Labs, Medications, Previous Orders, Radiology Changes from previous H/P or p: No Changes Objective Vitals Vital Signs Date Time Temp Pulse Resp B/P (MAP) Pulse Ox O2 Delivery O2 Flow Rate FiO2 11/10/24 13:00 98.9 63 16 96/56 (69) 97 98.9 11/10/24 08:00 Room Air* 2 N/A Nasal Cannula* Intake/Output Intake and Output 11/10/24 07:00 Intake Total 740 ml Balance 740 ml Intake Oral 740 ml # Voids 5 # Bowel Movements 1 General Appearance: Alert, Oriented X3, Cooperative, No acute distress HEENT: Atraumatic, PERRLA, EOMI, Mucous membr. moist/pink Neck: Supple Lungs: Clear to auscultation, Normal air movement Cardiovascular: Regular rate, Normal S1, Normal S2, No murmurs, Gallops, Rubs Abdomen: Normal bowel sounds, Soft, No tenderness Neuro: Cranial nerves 3-12 NL Psych/Mental Status: Mental status NL Medications Current Medications Medications Dose Ordered Sig/Rikki Route Start Time Stop Time Status Last Admin Dose Admin Nitroglycerin 0.4 mg Q5MINP PRN SL 11/08/24 23:15 Morphine Sulfate 2 mg Q30M PRN IV 11/08/24 23:15 Diagnostic Test (Pha) 1 strip ACHS 11/09/24 07:00 11/10/24 11:31 1 STRIP Insulin Human Regular ACHS SC 11/09/24 07:00 11/10/24 11:35 2 UNITS Dextrose 50 ml UD PRN IV 11/09/24 01:00 Acetaminophen/ Hydrocodone Bitart 1 tab Q4HP PRN PO 11/09/24 01:00 Ondansetron HCl 4 mg Q4HP PRN IV 11/09/24 01:00 11/09/24 12:05 4 MG Acetaminophen 650 mg Q6HP PRN PO 11/09/24 01:00 Sacubitril/ Valsartan 0.5 tab BID PO 11/09/24 10:00 11/09/24 22:03 0.5 TAB Empaglifozin 10 mg DAILY PO 11/09/24 10:00 11/10/24 09:36 10 MG Ceftriaxone Sodium 50 ml @ 100 mls/hr DAILY@09 IV 11/10/24 09:00 11/10/24 09:36 100 MLS/HR Spironolactone 12.5 mg DAILY PO 11/11/24 10:00 Laboratory Results Laboratory Tests 11/10/24 05:59 Chemistry Test 11/09/24 17:01 11/10/24 05:59 Calcium Level 10.5 mg/dL (8.7-10.4) H 9.3 mg/dL (8.7-10.4) Magnesium Level 2.1 mg/dL (1.6-2.6) 2.2 mg/dL (1.6-2.6) Albumin 3.9 g/dL (3.2-4.8) Total Protein 7.5 g/dL (5.7-8.2) LFT Test 11/10/24 05:59 Alanine Aminotransferase (ALT) 20 U/L (7-40) Alkaline Phosphatase 71 U/L (46-116) Aspartate Amino Transferase (AST) 45 U/L (13-40) H Total Bilirubin 0.4 mg/dL (0.2-1.0) HgA1c, TSH Test 11/10/24 05:59 Hemoglobin A1c 7.5 % A1C (<5.7) H Thyroid Stimulating Hormone (TSH) 3.33 uIU/mL (0.55-4.78) Urinalysis Test 11/09/24 03:30 Urine Color Light-yellow (Yellow) Urine Clarity Clear (Clear) Urine pH 7.0 (5.0-9.0) Urine Specific [place] 1.044 (1.001-1.035) Urine Protein Trace (Negative) H Urine Ketones 2+ (Negative) H Urine Blood Negative /uL (Negative) Urine Nitrite Negative (Negative) Urine Bilirubin Negative (Negative) Urine Urobilinogen Normal mg/dL (Negative) Urine Leukocyte Esterase Negative /uL (Negative) Urine RBC 4 /hpf (0 - 4) Urine Microscopic WBC 12 /HPF (0-5) H Urine Squamous Epithelial Cells Few /hpf (<5) Urine Bacteria None seen /hpf (None Seen) Urine Glucose Normal mg/dL (Normal) Microbiology Microbiology Date/Time Source Procedure Growth Status 11/09/24 03:30 Voided Urine Urine Culture - Preliminary Resulted 11/08/24 21:58 Blood Blood Culture - Preliminary NO GROWTH AFTER 24 HOURS OF INCUBATION. Resulted Labs and/or images reviewed: Labs reviewed by me Assessment/Plan Assessment/Plan * Acute systolic heart failure with Takotsubo syndrome. * Non-STEMI, likely secondary to Takotsubo. * Hyponatremia * Rheumatoid arthritis. * Questionable UTI. The patient will have a urine culture sent and placed empirically on IV Rocephin. * Diabetes mellitus for which she will be placed on sliding scale insulin. Continuing current management. Cardiac catheterization showed takotsubo with EF of 25% Patient had a zoll vest now Continuing IV Rocephin Encouraged the patient to be out of bed and ambulate Continuing with sliding scale insulin and Accu-Chek Continuing with fluid restriction Discussed with patient and son at bedside in length This medical document was created using an electronic medical record system with [employer] direct computerized dictation system. Although this document has been carefully reviewed, there may still be some phonetic and typographical errors. These areas are purely typographical due to imperfections of the software programs, and do not reflect any compromise in the patient's medical care. Plan discussed with: Patient, Son Date of Service: November 10, 2024 Billing Provider: JUAN BOSS MD Common Visit Codes: [id number] INP/OBS CARE(HIGH) JUAN BOSS MD November 10, 2024 13:42
[2024-11-11] VITALS (8 sets, daily range): BP systolic 96–118; BP diastolic 52–69; PULSE 83–127; RESP 14–17; TEMP 98–98.3; O2SAT 94–100
[2024-11-11] MEDS: SPIRONOLACTONE 25 MG TAB PO SCH (09:04)
--- NOTE | 2024-11-11 14:20 | DVHPN2 ---
Subjective The patient is seen and examined at bedside. No complaint today. Patient is tired. Reviewed: Care Plan, H&P, Labs, Medications, Previous Orders, Radiology Changes from previous H/P or p: No Changes Objective Vitals Vital Signs Date Time Temp Pulse Resp B/P (MAP) Pulse Ox O2 Delivery O2 Flow Rate FiO2 11/11/24 08:30 98.2 94 14 96/56 (69) 97 98.2 11/11/24 08:00 Nasal Cannula* 2 28 Intake/Output Intake and Output 11/11/24 07:00 Intake Total 1050 ml Output Total 1610 ml Balance -560 ml Intake Oral 1000 ml IV Total 50 ml Output Urine Total 1610 ml General Appearance: Alert, Oriented X3, Cooperative, No acute distress HEENT: Atraumatic, PERRLA, EOMI, Mucous membr. moist/pink Neck: Supple Lungs: Clear to auscultation, Normal air movement Cardiovascular: Regular rate, Normal S1, Normal S2, No murmurs, Gallops, Rubs Abdomen: Normal bowel sounds, Soft, No tenderness Neuro: Cranial nerves 3-12 NL Psych/Mental Status: Mental status NL Medications Current Medications Medications Dose Ordered Sig/Rikki Route Start Time Stop Time Status Last Admin Dose Admin Nitroglycerin 0.4 mg Q5MINP PRN SL 11/08/24 23:15 Morphine Sulfate 2 mg Q30M PRN IV 11/08/24 23:15 Diagnostic Test (Pha) 1 strip ACHS 11/09/24 07:00 11/11/24 11:00 1 STRIP Insulin Human Regular ACHS SC 11/09/24 07:00 11/11/24 11:01 3 UNITS Dextrose 50 ml UD PRN IV 11/09/24 01:00 Acetaminophen/ Hydrocodone Bitart 1 tab Q4HP PRN PO 11/09/24 01:00 Ondansetron HCl 4 mg Q4HP PRN IV 11/09/24 01:00 11/09/24 12:05 4 MG Acetaminophen 650 mg Q6HP PRN PO 11/09/24 01:00 Sacubitril/ Valsartan 0.5 tab BID PO 11/09/24 10:00 11/10/24 22:07 0.5 TAB Empaglifozin 10 mg DAILY PO 11/09/24 10:00 11/11/24 08:58 10 MG Ceftriaxone Sodium 50 ml @ 100 mls/hr DAILY@09 IV 11/10/24 09:00 11/11/24 08:58 100 MLS/HR Spironolactone 12.5 mg DAILY PO 11/11/24 10:00 Laboratory Results Laboratory Tests 11/10/24 05:59 Urinalysis Test 11/09/24 03:30 Urine Color Light-yellow (Yellow) Urine Clarity Clear (Clear) Urine pH 7.0 (5.0-9.0) Urine Specific [place] 1.044 (1.001-1.035) Urine Protein Trace (Negative) H Urine Ketones 2+ (Negative) H Urine Blood Negative /uL (Negative) Urine Nitrite Negative (Negative) Urine Bilirubin Negative (Negative) Urine Urobilinogen Normal mg/dL (Negative) Urine Leukocyte Esterase Negative /uL (Negative) Urine RBC 4 /hpf (0 - 4) Urine Microscopic WBC 12 /HPF (0-5) H Urine Squamous Epithelial Cells Few /hpf (<5) Urine Bacteria None seen /hpf (None Seen) Urine Glucose Normal mg/dL (Normal) Microbiology Microbiology Date/Time Source Procedure Growth Status 11/09/24 03:30 Voided Urine Urine Culture - Preliminary Resulted 11/08/24 21:58 Blood Blood Culture - Preliminary NO GROWTH AFTER 48 HOURS OF INCUBATION. Resulted Labs and/or images reviewed: Labs reviewed by me Assessment/Plan Assessment/Plan * Acute systolic heart failure with Takotsubo syndrome. * Non-STEMI, likely secondary to Takotsubo. * Hyponatremia * Rheumatoid arthritis. * Questionable UTI. The patient will have a urine culture sent and placed empirically on IV Rocephin. * Diabetes mellitus for which she will be placed on sliding scale insulin. Continuing current management. Cardiac catheterization showed takotsubo with EF of 25% Patient had a zoll vest now Continuing IV Rocephin Encouraged the patient to be out of bed and ambulate Continuing with sliding scale insulin and Accu-Chek Continuing with fluid restriction Encouraged the patient to be out of bed and work with physical therapy Discharge planning This medical document was created using an electronic medical record system with [employer] direct computerized dictation system. Although this document has been carefully reviewed, there may still be some phonetic and typographical errors. These areas are purely typographical due to imperfections of the software programs, and do not reflect any compromise in the patient's medical care. Plan discussed with: Patient Date of Service: November 11, 2024 Billing Provider: JUAN BOSS MD Common Visit Codes: [id number] INP/OBS CARE(HIGH) JUAN BOSS MD November 11, 2024 14:20
[2024-11-12] VITALS (8 sets, daily range): BP systolic 90–119; BP diastolic 57–80; PULSE 17–110; RESP 17; TEMP 97.8–99.1; O2SAT 96–100
[2024-11-12 08:02] LABS: Chloride 104 mmol/L (98-107); Potassium 4.4 mmol/L (3.5-5.1); Sodium 136 mmol/L (136-145)
[2024-11-12 08:03] LABS: Anion Gap 11 (5-15); Calcium 10.2 mg/dL (8.7-10.4); Carbon Dioxide 21 mmol/L (20-31)
[2024-11-12 08:08] LABS: BUN/Creatinine Ratio 20.9 (10.0-20.0); Blood Urea Nitrogen 19 mg/dL (9-23)
[2024-11-12 08:11] LABS: Glucose 134 mg/dL (74-106)
--- NOTE | 2024-11-12 13:32 | DVHPN2 ---
Subjective The patient is seen and examined at bedside. No complaint today. Patient is tired. Reviewed: Care Plan, H&P, Labs, Medications, Previous Orders, Radiology Changes from previous H/P or p: No Changes Objective Vitals Vital Signs Date Time Temp Pulse Resp B/P (MAP) Pulse Ox O2 Delivery O2 Flow Rate FiO2 11/12/24 13:15 98.9 17 17 100/64 (76) 100 98.9 11/12/24 08:00 Nasal Cannula* 2 28 Intake/Output Intake and Output 11/12/24 07:00 Intake Total 200 ml Balance 200 ml Intake Oral 150 ml IV Total 50 ml # Voids 4 General Appearance: Alert, Oriented X3, Cooperative, No acute distress HEENT: Atraumatic, PERRLA, EOMI, Mucous membr. moist/pink Neck: Supple Lungs: Clear to auscultation, Normal air movement Cardiovascular: Regular rate, Normal S1, Normal S2, No murmurs, Gallops, Rubs Abdomen: Normal bowel sounds, Soft, No tenderness Neuro: Cranial nerves 3-12 NL Psych/Mental Status: Mental status NL Medications Current Medications Medications Dose Ordered Sig/Rikki Route Start Time Stop Time Status Last Admin Dose Admin Nitroglycerin 0.4 mg Q5MINP PRN SL 11/08/24 23:15 Morphine Sulfate 2 mg Q30M PRN IV 11/08/24 23:15 Diagnostic Test (Pha) 1 strip ACHS 11/09/24 07:00 11/12/24 12:01 1 STRIP Insulin Human Regular ACHS SC 11/09/24 07:00 11/12/24 12:01 3 UNITS Dextrose 50 ml UD PRN IV 11/09/24 01:00 Acetaminophen/ Hydrocodone Bitart 1 tab Q4HP PRN PO 11/09/24 01:00 Ondansetron HCl 4 mg Q4HP PRN IV 11/09/24 01:00 11/09/24 12:05 4 MG Acetaminophen 650 mg Q6HP PRN PO 11/09/24 01:00 Sacubitril/ Valsartan 0.5 tab BID PO 11/09/24 10:00 11/11/24 21:39 0.5 TAB Empaglifozin 10 mg DAILY PO 11/09/24 10:00 11/11/24 08:58 10 MG Ceftriaxone Sodium 50 ml @ 100 mls/hr DAILY@09 IV 11/10/24 09:00 11/12/24 09:27 100 MLS/HR Spironolactone 12.5 mg DAILY PO 11/11/24 10:00 Laboratory Results Laboratory Tests 11/10/24 05:59 11/12/24 06:59 Chemistry Test 11/12/24 06:59 Calcium Level 10.2 mg/dL (8.7-10.4) Urinalysis Test 11/09/24 03:30 Urine Color Light-yellow (Yellow) Urine Clarity Clear (Clear) Urine pH 7.0 (5.0-9.0) Urine Specific [place] 1.044 (1.001-1.035) Urine Protein Trace (Negative) H Urine Ketones 2+ (Negative) H Urine Blood Negative /uL (Negative) Urine Nitrite Negative (Negative) Urine Bilirubin Negative (Negative) Urine Urobilinogen Normal mg/dL (Negative) Urine Leukocyte Esterase Negative /uL (Negative) Urine RBC 4 /hpf (0 - 4) Urine Microscopic WBC 12 /HPF (0-5) H Urine Squamous Epithelial Cells Few /hpf (<5) Urine Bacteria None seen /hpf (None Seen) Urine Glucose Normal mg/dL (Normal) Microbiology Microbiology Date/Time Source Procedure Growth Status 11/09/24 03:30 Voided Urine Urine Culture - Final Complete 11/08/24 21:58 Blood Blood Culture - Preliminary NO GROWTH AFTER 72 HOURS OF INCUBATION. Resulted Labs and/or images reviewed: Labs reviewed by me Assessment/Plan Assessment/Plan * Acute systolic heart failure with Takotsubo syndrome. * Non-STEMI, likely secondary to Takotsubo. * Hyponatremia * Rheumatoid arthritis. * Questionable UTI. The patient will have a urine culture sent and placed empirically on IV Rocephin. * Diabetes mellitus for which she will be placed on sliding scale insulin. Continuing current management. Cardiac catheterization showed takotsubo with EF of 25% Patient had a zoll vest now Continuing IV Rocephin Encouraged the patient to be out of bed and ambulate Continuing with sliding scale insulin and Accu-Chek Continuing with fluid restriction Encouraged the patient to be out of bed and work with physical therapy Discharge planning This medical document was created using an electronic medical record system with [employer] direct computerized dictation system. Although this document has been carefully reviewed, there may still be some phonetic and typographical errors. These areas are purely typographical due to imperfections of the software programs, and do not reflect any compromise in the patient's medical care. Plan discussed with: Patient Date of Service: November 12, 2024 Billing Provider: JUAN BOSS MD Common Visit Codes: [id number] INP/OBS CARE(HIGH) JUAN BOSS MD November 12, 2024 13:32
[2024-11-13] VITALS (9 sets, daily range): BP systolic 94–111; BP diastolic 58–65; PULSE 87–124; RESP 14–18; TEMP 97.7–98.9; O2SAT 96–98
--- NOTE | 2024-11-13 14:18 | DVHPN2 ---
Subjective The patient is seen and examined at bedside. No complaint today. Patient is tired. Reviewed: Care Plan, H&P, Labs, Medications, Previous Orders, Radiology Changes from previous H/P or p: No Changes Objective Vitals Vital Signs Date Time Temp Pulse Resp B/P (MAP) Pulse Ox O2 Delivery O2 Flow Rate FiO2 11/13/24 09:00 98.4 98 16 94/59 (71) 98 98.4 11/13/24 08:20 Nasal Cannula* 2 28 Intake/Output Intake and Output 11/13/24 07:00 Intake Total 700 ml Output Total 400 ml Balance 300 ml Intake Oral 650 ml IV Total 50 ml Output Urine Total 400 ml # Voids 1 General Appearance: Alert, Oriented X3, Cooperative, No acute distress HEENT: Atraumatic, PERRLA, EOMI, Mucous membr. moist/pink Neck: Supple Lungs: Clear to auscultation, Normal air movement Cardiovascular: Regular rate, Normal S1, Normal S2, No murmurs, Gallops, Rubs Abdomen: Normal bowel sounds, Soft, No tenderness Neuro: Cranial nerves 3-12 NL Psych/Mental Status: Mental status NL Medications Current Medications Medications Dose Ordered Sig/Rikki Route Start Time Stop Time Status Last Admin Dose Admin Nitroglycerin 0.4 mg Q5MINP PRN SL 11/08/24 23:15 Morphine Sulfate 2 mg Q30M PRN IV 11/08/24 23:15 Diagnostic Test (Pha) 1 strip ACHS 11/09/24 07:00 11/13/24 11:30 1 STRIP Insulin Human Regular ACHS SC 11/09/24 07:00 11/13/24 12:12 3 UNITS Dextrose 50 ml UD PRN IV 11/09/24 01:00 Acetaminophen/ Hydrocodone Bitart 1 tab Q4HP PRN PO 11/09/24 01:00 Ondansetron HCl 4 mg Q4HP PRN IV 11/09/24 01:00 11/09/24 12:05 4 MG Acetaminophen 650 mg Q6HP PRN PO 11/09/24 01:00 Sacubitril/ Valsartan 0.5 tab BID PO 11/09/24 10:00 11/13/24 09:11 0.5 TAB Empaglifozin 10 mg DAILY PO 11/09/24 10:00 11/13/24 09:10 10 MG Ceftriaxone Sodium 50 ml @ 100 mls/hr DAILY@09 IV 11/10/24 09:00 11/13/24 09:10 100 MLS/HR Spironolactone 12.5 mg DAILY PO 11/11/24 10:00 11/13/24 09:10 12.5 MG Laboratory Results Laboratory Tests 11/10/24 05:59 11/12/24 06:59 Urinalysis Test 11/09/24 03:30 Urine Color Light-yellow (Yellow) Urine Clarity Clear (Clear) Urine pH 7.0 (5.0-9.0) Urine Specific [place] 1.044 (1.001-1.035) Urine Protein Trace (Negative) H Urine Ketones 2+ (Negative) H Urine Blood Negative /uL (Negative) Urine Nitrite Negative (Negative) Urine Bilirubin Negative (Negative) Urine Urobilinogen Normal mg/dL (Negative) Urine Leukocyte Esterase Negative /uL (Negative) Urine RBC 4 /hpf (0 - 4) Urine Microscopic WBC 12 /HPF (0-5) H Urine Squamous Epithelial Cells Few /hpf (<5) Urine Bacteria None seen /hpf (None Seen) Urine Glucose Normal mg/dL (Normal) Microbiology Microbiology Date/Time Source Procedure Growth Status 11/09/24 03:30 Voided Urine Urine Culture - Final Complete 11/08/24 21:58 Blood Blood Culture - Preliminary NO GROWTH AFTER 72 HOURS OF INCUBATION. Resulted Assessment/Plan Assessment/Plan * Acute systolic heart failure with Takotsubo syndrome. * Non-STEMI, likely secondary to Takotsubo. * Hyponatremia * Rheumatoid arthritis. * Questionable UTI. The patient will have a urine culture sent and placed empirically on IV Rocephin. * Diabetes mellitus for which she will be placed on sliding scale insulin. Continuing current management. Cardiac catheterization showed takotsubo with EF of 25% Patient had a zoll vest now Continuing IV Rocephin Encouraged the patient to be out of bed and ambulate Continuing with sliding scale insulin and Accu-Chek Continuing with fluid restriction Encouraged the patient to be out of bed and work with physical therapy Discharge planning This medical document was created using an electronic medical record system with [employer] direct computerized dictation system. Although this document has been carefully reviewed, there may still be some phonetic and typographical errors. These areas are purely typographical due to imperfections of the software programs, and do not reflect any compromise in the patient's medical care. Plan discussed with: Patient My Orders Orders - JUAN BOSS MD Procedure Category Date Status Time Notify Provider NOTICE 11/13/24 Transmitted Malnutrition 13:56 Nutritional NOURISH 11/13/24 Transmitted Supplements 13:56 Dietary NOTICE 11/13/24 Transmitted Recommendations 13:56 Date of Service: November 12, 2024 Billing Provider: JUAN BOSS MD Common Visit Codes: [id number] INP/OBS CARE(HIGH) JUAN BOSS MD November 13, 2024 14:18
[2024-11-14 01:00] VITALS: BP 102/57; PULSE 99; RESP 18; TEMP 97.6; O2SAT 98
[2024-11-14 05:00] VITALS: BP 108/60; PULSE 108; RESP 18; TEMP 98.1; O2SAT 100
[2024-11-14 07:25] VITALS: PULSE 84
[2024-11-14 08:55] VITALS: BP 98/60; PULSE 94; RESP 20; TEMP 97.6; O2SAT 98
--- NOTE | 2024-11-14 11:12 | DVHDS2 ---
Discharge Summary Date of Admission November 08, 2024 at 23:14 Date of Discharge: November 14, 2024 Labs/Diagnostic Data: Laboratory Results Test 11/14/24 05:43 11/12/24 06:59 11/10/24 05:59 11/09/24 05:20 POC Glucose 142 mg/dl (70-106) Sodium Level 136 mmol/L (136-145) Potassium Level 4.4 mmol/L (3.5-5.1) Chloride Level 104 mmol/L (98-107) Carbon Dioxide Level 21 mmol/L (20-31) Anion Gap 11 (5-15) Blood Urea Nitrogen 19 mg/dL (9-23) Creatinine 0.91 mg/dL (0.550-1.02) Glomerular Filtration Rate Calc 69 mL/min (>90) BUN/Creatinine Ratio 20.9 (10.0-20.0) Serum Glucose 134 mg/dL (74-106) Calcium Level 10.2 mg/dL (8.7-10.4) White Blood Count 3.6 10^3/uL (4.4-10.8) Red Blood Count 4.02 10^6/uL (4.0-5.20) Hemoglobin 11.6 g/dL (12.2-16.2) Hematocrit 34.1 % (36.0-46.0) Mean Corpuscular Volume 84.9 fL (80.0-100.0) Mean Corpuscular Hemoglobin 28.8 pg (28.0-32.0) Mean Corpuscular Hemoglobin Concent 34.0 g/dL (32.0-36.0) Red Cell Distribution Width 16.6 % (11.8-14.3) Platelet Count 129 10^3/uL (140-450) Mean Platelet Volume 7.9 fL (6.9-10.8) Neutrophils (%) (Auto) 71.3 % (37.0-80.0) Lymphocytes (%) (Auto) 13.7 % (10.0-50.0) Monocytes (%) (Auto) 13.5 % (0.0-12.0) Eosinophils (%) (Auto) 0.8 % (0.0-7.0) Basophils (%) (Auto) 0.7 % (0.0-2.0) Neutrophils # (Auto) 2.6 10 ^3/uL (1.6-8.6) Lymphocytes # (Auto) 0.5 10 ^3/uL (0.4-5.4) Monocytes # (Auto) 0.5 10 ^3/uL (0-1.3) Eosinophils # (Auto) 0 10 ^3/uL (0-0.8) Basophils # (Auto) 0 10 ^3/uL (0-0.2) Nucleated Red Blood Cells 0.1 % Hemoglobin A1c 7.5 % A1C (<5.7) Magnesium Level 2.2 mg/dL (1.6-2.6) Total Bilirubin 0.4 mg/dL (0.2-1.0) Aspartate Amino Transferase (AST) 45 U/L (13-40) Alanine Aminotransferase (ALT) 20 U/L (7-40) Alkaline Phosphatase 71 U/L (46-116) Total Protein 7.5 g/dL (5.7-8.2) Albumin 3.9 g/dL (3.2-4.8) Thyroid Stimulating Hormone (TSH) 3.33 uIU/mL (0.55-4.78) Troponin I High Sensitivity 4542 ng/L (</=34) B-Type Natriuretic Peptide 482.38 pg/mL (0-100) Test 11/09/24 03:30 11/08/24 23:50 11/08/24 21:26 Urine Color Light-yellow (Yellow) Urine Clarity Clear (Clear) Urine pH 7.0 (5.0-9.0) Urine Specific [place] 1.044 (1.001-1.035) Urine Protein Trace (Negative) Urine Ketones 2+ (Negative) Urine Blood Negative /uL (Negative) Urine Nitrite Negative (Negative) Urine Bilirubin Negative (Negative) Urine Urobilinogen Normal mg/dL (Negative) Urine Leukocyte Esterase Negative /uL (Negative) Urine RBC 4 /hpf (0 - 4) Urine Microscopic WBC 12 /HPF (0-5) Urine Squamous Epithelial Cells Few /hpf (<5) Urine Bacteria None seen /hpf (None Seen) Urine Glucose Normal mg/dL (Normal) Lactic Acid Level 1.7 mmol/L (0.4-2.0) Triglycerides Level 80 mg/dL (< 150) Cholesterol Level 163 mg/dL (< 200) LDL Cholesterol 115 mg/dL (< 100) HDL Cholesterol 45 mg/dL (40-59) Prothrombin Time 10.1 sec (9.3-11.8) Prothrombin Time INR 0.95 (0.9-1.15) Activated Partial Thromboplast Time 25.4 SEC (24.5-34.5) Lipase 50 U/L (12-53) Other Laboratory Tests 11/12/24 06:59 11/10/24 05:59 Brief Hx & Hospital Course: see dictated note Condition at Discharge: Fair Final Diagnosis/Problems List Takotsubo syndrome Discharge Disposition: Home Discharge Instruct/Medications Diet: Consistent carbohydrate, Cardiac 2g Na,low cholest Activity: No Restrictions, As Tolerated Follow Up/Referral: fu with dr García /pcp in 1 wk Medications: resume home meds script to pharmacy Discharge Statement: "Patient was advised to return to the ER or call 911 if any headaches, dizziness, shortness of breath, chest pain, abdominal pain, bleeding, fevers, or worsening of medical condition. Patient was counseled about treatment plan, medications, possible side effects, patientverbalized understanding. All questions were answered to the best of my ability. This discharge took greater then 30 minutes in planning, reviewing documentation, counseling the patient, and discussing with other team members." ASSESSMENT ASSESSMENT Assessment Takotsubo syndrome Date of Service: November 14, 2024 Billing Provider: COOPER SANTIAGO MD Common Visit Codes: [id number] DISCH DAY >30min COOPER SANTIAGO MD November 14, 2024 11:12
[2024-11-14] MEDS ORDERED: SACU1TAB PO (11:14)
[2024-11-14] MEDS ORDERED: EMPA1TAB PO (11:14)
[2024-11-14] MEDS ORDERED: SPIR25TA PO (11:14)
--- NOTE | 2024-11-14 11:45 | DVHDS ---
DATE OF DISCHARGE: 11/14/2024 HISTORY OF PRESENT ILLNESS: The patient is a 69-year-old lady who was admitted with a history of increasing fatigue and shortness of breath and has a history of rheumatoid arthritis and diabetes mellitus. HOSPITAL COURSE: The patient underwent a coronary angiography by Dr. García that showed likely Takotsubo syndrome with normal coronaries. The patient's troponin levels were elevated at admission. The patient was also hyponatremic. The patient's symptoms have now improved and the sodium is also improved. She will be discharged home to resume her home medications as well as to be on Entresto half a tablet b.i.d., Aldactone 25 mg daily, and Jardiance 10 mg daily. She will follow up with her primary and Dr. García in the next 1-2 weeks. Echocardiogram done showed ejection fraction of 20% to 25%. FINAL DIAGNOSES: * Takotsubo syndrome with acute systolic heart failure. * Non-STEMI, likely secondary to Takotsubo. * Hyponatremia. * Rheumatoid arthritis. * Diabetes mellitus. * Thrombocytopenia. Time spent in discharge planning and review of plan with the patient and nursing was 38 minutes. MD CULLEN Bridges/JENNIFER TID: [id number] RECEIPT: [id number]
[2024-11-14 12:33] VITALS: BP 131/70; PULSE 95; RESP 20; TEMP 98.4; O2SAT 96
[2024-11-14 12:40] VITALS: BP 131/70; PULSE 95; RESP 20; TEMP 98.4; O2SAT 96
== END 2024-11-14 16:05 | disposition home or self-care (01) | DRG 280 ==
LOC: ER 20:40 → OVERFLOW 23:14 → TELE-WESTW 23:56
PROVIDERS: ADMIT Internal Medicine; ATTEND Internal Medicine
PROC: 4A023N7 Measurement of Cardiac Sampling and Pressure, Left Heart, Percutaneous Approach (ICD-10-PCS; principal; 2024-11-08)
PROC: B211YZZ Fluoroscopy of Multiple Coronary Arteries using Other Contrast (ICD-10-PCS; 2024-11-08)
PROC: B215YZZ Fluoroscopy of Left Heart using Other Contrast (ICD-10-PCS; 2024-11-08)
PROC: B34HZZZ Ultrasonography of Right Upper Extremity Arteries (ICD-10-PCS; 2024-11-08)
DX: I21.4 Non-ST elevation (NSTEMI) myocardial infarction (principal); I50.23 Acute on chronic systolic (congestive) heart failure; E87.1 Hypo-osmolality and hyponatremia; N39.0 Urinary tract infection, site not specified; I11.0 Hypertensive heart disease with heart failure; E11.9 Type 2 diabetes mellitus without complications; M06.9 Rheumatoid arthritis, unspecified; I21.B Myocardial infarction with coronary microvascular dysfunction; D69.6 Thrombocytopenia, unspecified; Z79.84 Long term (current) use of oral hypoglycemic drugs; Z79.899 Other long term (current) drug therapy; Z83.3 Family history of diabetes mellitus
CPT/HCPCS: 36415; 71045; 80048; 80053; 80061; 81001; 82565; 82962; 83036; 83605; 83690; 83735; 83880; 84443; 84484; 85025; 85610; 85730; 86850; 86900; 86901; 87040; 87086; 93005; 93306; 93458; 96374; 96375; 97163; 99152; 99291; G0378; J1815; J2250; J2405; Q9956; Q9967